=== PATIENT | male | born 1960 | race African-American/Black ===

== ENCOUNTER 2017-10-26 15:46 | Inpatient (IN) | payer MEDICARE ==
[2017-10-26 16:48] VITALS: BP 150/97
[2017-10-26] MEDS ORDERED: Magnesium Hydroxide (MOM) 30 mL UDC PO PRN (16:49)
[2017-10-26] MEDS ORDERED: Maalox 30 mL Cup PO PRN (16:49)
[2017-10-27] MEDS: Multivitamin Tab PO SCH (09:57)
--- NOTE | 2017-10-27 23:26 | History & Physical ---
ADMIT DATE: 10/26/2017 REASON FOR ADMISSION: Psychiatric disorder. HISTORY OF PRESENT ILLNESS: This is a 57-year-old male admitted to the [facility] Unit following psychiatric illnesses by Dr. Clements. Dr. Clements requested medical H and P on this patient. The patient stated that he is doing fine and denies any current medical complaints or concerns. PAST MEDICAL HISTORY: Hypertension. PAST SURGICAL HISTORY: No history of any past surgeries. FAMILY HISTORY: Denies. SOCIAL HISTORY: Denies tobacco smoking. Denies alcohol or street drug use. CURRENT MEDICATIONS: Tylenol, Maalox, milk of magnesia, multivitamin, and Seroquel. REVIEW OF SYSTEMS: All 12-point system review appears negative. PHYSICAL EXAMINATION: VITAL SIGNS: Temperature 96.9, pulse 94, respirations 20, and blood pressure 150/97. GENERAL APPEARANCE: The patient does not seem in acute distress. HEART: S1, S2 normal. LUNGS: Clear to auscultation. ABDOMEN: Soft, nontender. NEUROLOGIC: The patient is awake. Moves all extremities. Grossly nonfocal exams. EXTREMITIES: Negative for edema. ASSESSMENT: 1. Nicotine dependency. 2. Elevated blood pressure, monitor blood pressures. 3. ____ advised. 4. CBC, BMP orders. Plan of care discussed with nursing staff. Thank you Dr. Clements for allowing me to participate in the care of this patient. JOB# [id number]
[2017-10-28] MEDS: Multivitamin Tab PO SCH (10:00)
[2017-10-28 15:24] LABS: ANION GAP 11.8 (7.0-16.0); BUN - UREA NITROGEN 15 mg/dL (7-25); CALCIUM SERUM 10.3 mg/dL (8.6-10.3); CHLORIDE 103 mEq/L (98-107); GFR AFRICAN-AMERICAN > 60.0 ml/min (>90); GFR NON AFRICAN-AMERICAN > 60.0 ml/min; GLUCOSE 94 mg/dL (70-105); POTASSIUM SERUM 3.8 mEq/L (3.5-5.1); SODIUM SERUM 137 mEq/L (136-145)
[2017-10-28 15:38] LABS: % EOSINOPHILS 3.4 % (0.0-5.0); % LYMPHOCYTES 30.1 % (20.0-50.0); % MONOCYTES 10.4 % (2.0-10.0); % NEUTROPHILS 53.6 % (40.0-80.0); HEMATOCRIT 42.3 % (41.0-60); HEMOGLOBIN 14.3 gm/dL (12-16); MEAN CELL VOLUME 90.4 fl (80-99); MEAN CORPUSCULAR HEMOGLOBIN 30.6 pg (26.0-30.0); MEAN CORPUSCULAR HGB CONC 33.8 pg (28.0-36.0); MEAN PLATELET VOLUME 8.5 fl; PLATELET COUNT 276 Th/cmm (150-400); RED BLOOD COUNT 4.68 Mil/cmm (4.30-5.70); RED CELL DISTRIBUTION WIDTH 16.2 % (11.5-20.0); WHITE BLOOD COUNT 12.5 Th/cmm (4.8-10.8)
[2017-10-28 15:39] LABS: % BASOPHILS 2.5 % (0.0-2.0); BASOPHILE ABSOLUTE 0.3 Th/cumm (0-0.2); EOSINOPHILE ABSOLUTE 0.4 Th/cmm (0.1-0.4); LYMPHOCYTE ABSOLUTE 3.8 Th/cmm (1.5-3.0); MONOCYTE ABSOLUTE 1.3 Th/cmm (0.3-1.0); NEUTROPHILE ABSOLUTE 6.7 Th/cmm (1.8-8.0)
[2017-10-28] MEDS ORDERED: Haloperidol Lactate 5 mg/mL 1mL Vial ONE (15:46)
[2017-10-28] MEDS ORDERED: Haloperidol Lactate 5 mg/mL 1mL Vial IM STA (15:47)
--- NOTE | 2017-10-28 22:41 | General Progress Note ---
Subjective - Review of Systems Service Date: 10/28/17 Subjective: patient seen and examined no new event reported Objective - Results Result Diagrams: 10/28/17 14:56 10/28/17 14:56 Recent Labs: Laboratory Last Values WBC 12.5 Th/cmm (4.8-10.8) H 10/28/17 14:56 RBC 4.68 Mil/cmm (4.30-5.70) 10/28/17 14:56 Hgb 14.3 gm/dL (12-16) 10/28/17 14:56 Hct 42.3 % (41.0-60) 10/28/17 14:56 MCV 90.4 fl (80-99) 10/28/17 14:56 MCH 30.6 pg (26.0-30.0) H 10/28/17 14:56 MCHC Differential 33.8 pg (28.0-36.0) 10/28/17 14:56 RDW 16.2 % (11.5-20.0) 10/28/17 14:56 Plt Count 276 Th/cmm (150-400) 10/28/17 14:56 MPV 8.5 fl 10/28/17 14:56 Neutrophils % 53.6 % (40.0-80.0) 10/28/17 14:56 Lymphocytes % 30.1 % (20.0-50.0) 10/28/17 14:56 Monocytes % 10.4 % (2.0-10.0) H 10/28/17 14:56 Eosinophils % 3.4 % (0.0-5.0) 10/28/17 14:56 Basophils % 2.5 % (0.0-2.0) H 10/28/17 14:56 Sodium 137 mEq/L (136-145) 10/28/17 14:56 Potassium 3.8 mEq/L (3.5-5.1) 10/28/17 14:56 Chloride 103 mEq/L (98-107) 10/28/17 14:56 Carbon Dioxide 26.0 mEq/L (21.0-31.0) 10/28/17 14:56 Anion Gap 11.8 (7.0-16.0) 10/28/17 14:56 BUN 15 mg/dL (7-25) 10/28/17 14:56 Creatinine 1.0 mg/dL (0.7-1.3) 10/28/17 14:56 Est GFR ( Amer) > 60.0 ml/min (>90) 10/28/17 14:56 Est GFR (Non-Af Amer) > 60.0 ml/min 10/28/17 14:56 BUN/Creatinine Ratio 15.0 10/28/17 14:56 Glucose 94 mg/dL (70-105) 10/28/17 14:56 Calcium 10.3 mg/dL (8.6-10.3) 10/28/17 14:56 - Physical Exam Vitals and I&O: Vital Signs Temp 98.2 F 10/28/17 20:59 Pulse 113 10/28/17 20:59 Resp 18 10/28/17 20:59 BP 126/78 10/28/17 20:59 Pulse Ox 98 10/28/17 20:59 Intake & Output 10/28/17 10/28/17 10/29/17 06:59 18:59 06:59 Intake Total 540 Balance 540 Intake: Oral 540 Other: # Voids 1 Stool Characteristics Formed Active Medications: Current Medications Acetaminophen (Tylenol) 650 mg PO Q4HR PRN PRN Reason: Mild Pain / Temp above 100 Stop: 12/25/17 16:48 Al Hydrox/Mg Hydrox/Simethicone (Maalox) 30 ml PO Q4HR PRN PRN Reason: GI DISTRESS Stop: 12/25/17 16:48 Magnesium Hydroxide (Milk Of Magnesia) 30 ml PO HS PRN PRN Reason: Constipation Multivitamins/Vitamin C (Theragran) 1 tab PO DAILY TIMBO Stop: 12/26/17 08:59 Last Admin: 10/28/17 10:00 Dose: 1 tab Quetiapine Fumarate (Seroquel) 150 mg PO BID TIMBO PRN Reason: Protocol Stop: 12/27/17 06:15 Last Admin: 10/28/17 17:40 Dose: 150 mg Cardiovascular: Regular rate Lungs: Clear to auscultation Assessment/Plan - Assessment Assessment: leucocytosis HTN Nicotine dependency Mental health disorder - Plan Plan: Follow up labs Monitor vitals Psych follow up
[2017-10-29] MEDS: Multivitamin Tab PO SCH (08:31)
--- NOTE | 2017-10-29 08:32 | Psychosocial Evaluation ---
DATE OF SERVICE: 10/26/2017 PSYCHIATRIC INITIAL EVALUATION AND MENTAL STATUS EXAMINATION PATIENT'S AGE: 57-year-old. SEX: Male. PHYSICIAN: Iliana Clements MD, MPH CHIEF COMPLAINT: Gravely disabled. HISTORY OF PRESENT ILLNESS: The patient is a 57-year-old male who was found by the police in feces and urine. The patient also has been agitated. He has history of schizophrenia according to the chart and the patient seems that he has not been able to comply with taking his medications. The patient also was at times unconscious and he was not giving much information. He has history of migraine headaches according to the chart and also history of paranoid schizophrenia versus schizoaffective disorder. The patient was taking Cogentin as well as Seroquel. Apparently, the patient is poor historian and unable to provide any information about himself or his condition. Also, is easily agitated. PAST PSYCHIATRIC HISTORY: The patient has history of schizophrenia. PAST MEDICAL HISTORY: The patient has migraine headaches. Otherwise, no other major medical issues. SOCIAL HISTORY: The patient seems to be homeless. Unknown alcohol or drug use at this time. Also unknown legal history or abuse history. ALLERGIES: No known allergies. MENTAL STATUS EXAMINATION: The patient appears older than his stated age. Disheveled. Irritable moods. Disorganized thoughts. Suspicious and paranoid. The patient would not answer questions regarding hallucinations or delusions, but seems to be actively responding to stimuli. The patient denied suicidal or homicidal ideations. The patient is alert and oriented to place, but not to time or person or situation. Unable to assess his memory, but the patient is a poor historian and unable to follow my directions. Poor concentration and attention span and poor insight. ASSESSMENT: PRIMARY DIAGNOSIS: Chronic paranoid schizophrenia with acute exacerbation. MEDICAL DIAGNOSIS: Migraine headaches. TREATMENT PLAN: We will continue monitoring his behavior and his condition closely. We will start Seroquel in a dose of 100 mg twice a day. Also, we will continue to monitor behavior. ESTIMATED LENGTH OF STAY: 5-7 days. THE PATIENT'S STRENGTHS AND WEAKNESSES: The patient's strength is not clear at this time. Weaknesses is his noncompliance with treatment recommendation and his psychosis. AFTER DISCHARGE PLAN: Outpatient treatment and followup will continue as an outpatient. CRITERIA FOR DISCHARGE: The patient will not be psychotic and will stabilize psychotropic medications and will establish outpatient treatment plans. [facility]# [id number]
--- NOTE | 2017-10-29 09:56 | Progress Notes ---
DATE: 10/28/2017 SUBJECTIVE: Chart reviewed and the patient interviewed. Also discussed the patient's condition with the staff and reviewed records and labs. The patient is repeating the last words of my question to him and it seems that he has " echolalia." He also has been increasingly agitated with problems to calm him down and continued to be agitated and in irritable mood. The patient also is still having episodes of threatening. Otherwise, the patient is compliant with taking his medications. The patient denies any side effects of medications. ASSESSMENT: The patient is still agitated and is still psychotic. TREATMENT PLAN: Continue to monitor his behavior and his condition closely. Also, continue to work on his poor impulse control. Also, we will increase Seroquel to 150 mg twice a day and we will continue to follow up. JOB# [id number]
--- NOTE | 2017-10-29 21:43 | Progress Notes ---
DATE: SUBJECTIVE: The patient was seen and evaluated. The patient's chart reviewed. COVERING FOR: Dr. Clements. IDENTIFYING DATA: A 57-year-old male who was found in the police station with feces and urine. He has been very agitated and history of schizophrenia, disorganized. Today on [id number] evaluation, the patient continues to perseverate about his feces, perseverate about his bowel and hyperfocus when attempting to redirect him and different mood. He becomes more intense and ruminating about his feces. MENTAL STATUS EXAMINATION: Still disorganized, ruminating about the feces. ASSESSMENT AND PLAN: The patient is a male with schizophrenia whose recent Seroquel was increased to 150 mg p.o. b.i.d. We will continue with primary psychiatrist's treatment plan and goals to target the patient's severe psychotic symptoms. JOB# [id number]
[2017-10-30] MEDS ORDERED: Haloperidol Lactate 5 mg/mL 1mL Vial IM PRN (07:53)
[2017-10-30] MEDS ORDERED: Haloperidol Lactate 5 mg/mL 1mL Vial ONE (08:06)
[2017-10-30] MEDS: Multivitamin Tab PO SCH (09:45)
--- NOTE | 2017-10-30 13:25 | Progress Notes ---
DATE: SUBJECTIVE: The patient was seen and evaluated. The patient's chart reviewed. On approach today, the patient was extremely agitated, irritable and verbally threatening to staff as he almost go to ____ nursing station and starts targeting one of the staff. MENTAL STATUS EXAMINATION: Still disorganized, ruminating, agitated, threatening staff, unable to formulate a safe plan outside the structured environment. ASSESSMENT AND PLAN: The patient is a 57-year-old male, disorganized, verbally threaten staff members requiring emergent medications, unable to formulate a safe plan outside the structured environment. JOB# [id number]
[2017-10-31] MEDS: Multivitamin Tab PO SCH (08:47)
[2017-10-31] MEDS ORDERED: Haloperidol Lactate 5 mg/mL 1mL Vial ONE (15:14)
[2017-10-31] MEDS ORDERED: Haloperidol Lactate 5 mg/mL 1mL Vial IM ONE (15:20)
--- NOTE | 2017-10-31 21:41 | Progress Notes ---
DATE: 10/31/[address] Clements. Case was discussed with staff of patient, reviewed records. This is a 57-year-old male who was admitted on 10/26/2017. On a hold for grave disability, he was found by the police in feces in urine, agitated with a history of schizophrenia. The patient has not been able to comply with taking his medication. He was unconscious at times and he was not giving much information with a history of migraine headaches. The patient was on Seroquel and Cogentin. The patient according to the staff has been threatening. He is hyperverbal. When I saw him, he continues to be unpredictable, impulsive, unable to make safe plan for self-care, needing redirection. He has been on Seroquel 150 mg that was increased to twice a day with no side effects, no sedation, no nausea, no extrapyramidal symptoms. I will be increasing the Seroquel to 175 mg twice a day to help with his threatening, agitated behavior and so far no side effects, no sedation, no nausea, no extrapyramidal symptoms. We will continue to work with the patient in group therapy, milieu therapy, and adjust the medications as needed. JOB# [id number]
--- NOTE | 2017-10-31 22:06 | General Progress Note ---
Subjective - Review of Systems Service Date: 10/31/17 Subjective: patient seen and examined no new event reported Objective - Results Result Diagrams: 10/28/17 14:56 10/28/17 14:56 Recent Labs: Laboratory Last Values WBC 12.5 Th/cmm (4.8-10.8) H 10/28/17 14:56 RBC 4.68 Mil/cmm (4.30-5.70) 10/28/17 14:56 Hgb 14.3 gm/dL (12-16) 10/28/17 14:56 Hct 42.3 % (41.0-60) 10/28/17 14:56 MCV 90.4 fl (80-99) 10/28/17 14:56 MCH 30.6 pg (26.0-30.0) H 10/28/17 14:56 MCHC Differential 33.8 pg (28.0-36.0) 10/28/17 14:56 RDW 16.2 % (11.5-20.0) 10/28/17 14:56 Plt Count 276 Th/cmm (150-400) 10/28/17 14:56 MPV 8.5 fl 10/28/17 14:56 Neutrophils % 53.6 % (40.0-80.0) 10/28/17 14:56 Lymphocytes % 30.1 % (20.0-50.0) 10/28/17 14:56 Monocytes % 10.4 % (2.0-10.0) H 10/28/17 14:56 Eosinophils % 3.4 % (0.0-5.0) 10/28/17 14:56 Basophils % 2.5 % (0.0-2.0) H 10/28/17 14:56 Sodium 137 mEq/L (136-145) 10/28/17 14:56 Potassium 3.8 mEq/L (3.5-5.1) 10/28/17 14:56 Chloride 103 mEq/L (98-107) 10/28/17 14:56 Carbon Dioxide 26.0 mEq/L (21.0-31.0) 10/28/17 14:56 Anion Gap 11.8 (7.0-16.0) 10/28/17 14:56 BUN 15 mg/dL (7-25) 10/28/17 14:56 Creatinine 1.0 mg/dL (0.7-1.3) 10/28/17 14:56 Est GFR ( Amer) > 60.0 ml/min (>90) 10/28/17 14:56 Est GFR (Non-Af Amer) > 60.0 ml/min 10/28/17 14:56 BUN/Creatinine Ratio 15.0 10/28/17 14:56 Glucose 94 mg/dL (70-105) 10/28/17 14:56 Calcium 10.3 mg/dL (8.6-10.3) 10/28/17 14:56 - Physical Exam Vitals and I&O: Vital Signs Temp 98.8 F 10/31/17 20:24 Pulse 124 10/31/17 20:24 Resp 20 10/31/17 20:24 BP 117/83 10/31/17 20:24 Pulse Ox 98 10/31/17 16:49 Intake & Output 10/31/17 10/31/17 11/01/17 06:59 18:59 06:59 Intake Total 480 360 Balance 480 360 Intake: Oral 480 360 Other: # Voids 1 1 Active Medications: Current Medications Acetaminophen (Tylenol) 650 mg PO Q4HR PRN PRN Reason: Mild Pain / Temp above 100 Stop: 12/25/17 16:48 Last Admin: 10/30/17 20:44 Dose: 650 mg Al Hydrox/Mg Hydrox/Simethicone (Maalox) 30 ml PO Q4HR PRN PRN Reason: GI DISTRESS Stop: 12/25/17 16:48 Lorazepam (Ativan) 0.5 mg PO Q4HR PRN; Protocol PRN Reason: Anxiety Stop: 11/29/17 22:04 Magnesium Hydroxide (Milk Of Magnesia) 30 ml PO HS PRN PRN Reason: Constipation Multivitamins/Vitamin C (Theragran) 1 tab PO DAILY TIMBO Stop: 12/26/17 08:59 Last Admin: 10/31/17 08:47 Dose: 1 tab Quetiapine Fumarate (Seroquel) 175 mg PO BID TIMBO PRN Reason: Protocol Stop: 12/30/17 16:59 Last Admin: 10/31/17 17:51 Dose: 175 mg Zolpidem Tartrate (Ambien) 5 mg PO HS PRN PRN Reason: Insomnia Stop: 12/29/17 22:04 Cardiovascular: Regular rate Lungs: Clear to auscultation Assessment/Plan - Assessment Assessment: leucocytosis HTN Nicotine dependency Mental health disorder - Plan Plan: Follow up labs Monitor vitals Psych follow up Nutritional Asmnt/Malnutr-PDOC - Dietary Evaluation Malnutrition Findings (Please click <Entered> for more info): Nutritional Asmnt/Malnutrition Start: 10/31/17 17: 13 Text: Status: Complete Freq: Document 10/31/17 17:13 SAM (Rec: 10/31/17 17:18 [email or web address] Nutritional Asmnt/Malnutrition Patient General Information Nutritional Screening Moderate Risk Diagnosis psychosis Pertinent Medical Hx/Surgical Hx HTN Subjective Information Per EMR, PO intake 100%. Current Diet Order/ Nutrition Support low sodium Pertinent Medications theragran, seroquel Pertinent Labs 10/28 nutrition related labs WNL Nutritional Hx/Data Height 1.65 m Height (Calculated Centimeters) 165.1 Current Weight (lbs) 63.957 kg Weight (Calculated Kilograms) 64.0 Weight (Calculated Grams) 54128.5 [place] Body Weight 136 Body Mass Index (BMI) 23.4 Weight Status Approriate GI Symptoms GI Symptoms None Last BM 10/30 Difficult in: None Food Allergies Yes: egg Skin Integrity/Comment: puncture wound ulceration to left lower ankle Estimated Nutritional Goals BEE in Kcals: Using Current wt Calories/Kcals/Kg 25-30 Kcals Calculated 1021-2485 Protein: Using Current wt Protein g/k Protein Calculated 64 Fluid: ml [id number] Nutritional Problem No current Nutrition Prob Problem N/A Intervention/Recommendation Comments 1. Continue with current diet as ordered. 2. Monitor PO intake, wt, labs and skin integrity 3. F/U as low risk in 7d ays, 4/2 Expected Outcomes/Goals Expected Outcomes/Goals 1. PO intake to meet at least 75% of nutritional needs. 2. Wt stability, skin to remain intact, labs WNL.
[2017-11-01] MEDS: Multivitamin Tab PO SCH (09:13)
[2017-11-01 16:34] LABS: % EOSINOPHILS 4.1 % (0.0-5.0); % LYMPHOCYTES 22.3 % (20.0-50.0); % MONOCYTES 13.3 % (2.0-10.0); % NEUTROPHILS 60.3 % (40.0-80.0); EOSINOPHILE ABSOLUTE 0.6 Th/cmm (0.1-0.4); HEMATOCRIT 40.4 % (41.0-60); HEMOGLOBIN 13.7 gm/dL (12-16); LYMPHOCYTE ABSOLUTE 3.3 Th/cmm (1.5-3.0); MEAN CELL VOLUME 89.7 fl (80-99); MEAN CORPUSCULAR HEMOGLOBIN 30.5 pg (26.0-30.0); MEAN CORPUSCULAR HGB CONC 33.9 pg (28.0-36.0); MONOCYTE ABSOLUTE 1.9 Th/cmm (0.3-1.0); NEUTROPHILE ABSOLUTE 8.8 Th/cmm (1.8-8.0); PLATELET COUNT 279 Th/cmm (150-400); RED CELL DISTRIBUTION WIDTH 15.5 % (11.5-20.0); WHITE BLOOD COUNT 14.6 Th/cmm (4.8-10.8)
[2017-11-01] MEDS ORDERED: Haloperidol Lactate 5 mg/mL 1mL Vial ONE (17:47)
[2017-11-01] MEDS ORDERED: Haloperidol Lactate 5 mg/mL 1mL Vial IM ONE (17:58)
--- NOTE | 2017-11-01 23:06 | Progress Notes ---
DATE: 11/01/2017 Case was discussed with staff of the patient, reviewed records. The patient is reported to be showing some progress. He is less threatening. He continues to be loud; however, continues to be unpredictable and impulsive. Continues to be hyperverbal at times. Continues to have poor insight. Tolerating increase in Seroquel with no side effects, no sedation, no nausea and no extrapyramidal symptoms. We will continue to work with the patient in group therapy and therapy, adjust medications as needed. JOB# [id number]
[2017-11-02] MEDS: Multivitamin Tab PO SCH (09:21)
--- NOTE | 2017-11-02 21:16 | General Progress Note ---
Subjective - Review of Systems Service Date: 11/02/17 Subjective: patient seen and examined Last night patient noted to have elevated HR per nursing staff patient was asymptomatic today patient denied any chest pain or palpitation or shortness of breath Objective - Results Result Diagrams: 11/01/17 16:25 10/28/17 14:56 Recent Labs: Laboratory Last Values WBC 14.6 Th/cmm (4.8-10.8) H 11/01/17 16:25 RBC 4.50 Mil/cmm (4.30-5.70) 11/01/17 16:25 Hgb 13.7 gm/dL (12-16) 11/01/17 16:25 Hct 40.4 % (41.0-60) L 11/01/17 16:25 MCV 89.7 fl (80-99) 11/01/17 16:25 MCH 30.5 pg (26.0-30.0) H 11/01/17 16:25 MCHC Differential 33.9 pg (28.0-36.0) 11/01/17 16:25 RDW 15.5 % (11.5-20.0) 11/01/17 16:25 Plt Count 279 Th/cmm (150-400) 11/01/17 16:25 MPV 8.0 fl 11/01/17 16:25 Neutrophils % 60.3 % (40.0-80.0) 11/01/17 16:25 Lymphocytes % 22.3 % (20.0-50.0) 11/01/17 16:25 Monocytes % 13.3 % (2.0-10.0) H 11/01/17 16:25 Eosinophils % 4.1 % (0.0-5.0) 11/01/17 16:25 Basophils % 0.0 % (0.0-2.0) 11/01/17 16:25 Sodium 137 mEq/L (136-145) 10/28/17 14:56 Potassium 3.8 mEq/L (3.5-5.1) 10/28/17 14:56 Chloride 103 mEq/L (98-107) 10/28/17 14:56 Carbon Dioxide 26.0 mEq/L (21.0-31.0) 10/28/17 14:56 Anion Gap 11.8 (7.0-16.0) 10/28/17 14:56 BUN 15 mg/dL (7-25) 10/28/17 14:56 Creatinine 1.0 mg/dL (0.7-1.3) 10/28/17 14:56 Est GFR ( Amer) > 60.0 ml/min (>90) 10/28/17 14:56 Est GFR (Non-Af Amer) > 60.0 ml/min 10/28/17 14:56 BUN/Creatinine Ratio 15.0 10/28/17 14:56 Glucose 94 mg/dL (70-105) 10/28/17 14:56 Calcium 10.3 mg/dL (8.6-10.3) 10/28/17 14:56 - Physical Exam Vitals and I&O: Vital Signs Temp 98.6 F 11/02/17 14:53 Pulse 102 11/02/17 20:49 Resp 20 11/02/17 20:49 BP 105/66 11/02/17 20:49 Pulse Ox 99 11/02/17 20:49 Intake & Output 11/02/17 11/02/17 11/03/17 06:59 18:59 06:59 Intake Total 200 1500 240 Balance 200 1500 240 Intake: Oral 200 1500 240 Other: # Voids 3 3 1 # Bowel Movements 0 Active Medications: Current Medications Acetaminophen (Tylenol) 650 mg PO Q4HR PRN PRN Reason: Mild Pain / Temp above 100 Stop: 12/25/17 16:48 Last Admin: 10/30/17 20:44 Dose: 650 mg Al Hydrox/Mg Hydrox/Simethicone (Maalox) 30 ml PO Q4HR PRN PRN Reason: GI DISTRESS Stop: 12/25/17 16:48 Lorazepam (Ativan) 0.5 mg PO Q4HR PRN; Protocol PRN Reason: Anxiety Stop: 11/29/17 22:04 Last Admin: 11/02/17 09:21 Dose: 0.5 mg Magnesium Hydroxide (Milk Of Magnesia) 30 ml PO HS PRN PRN Reason: Constipation Metoprolol Tartrate (Lopressor) 12.5 mg PO BID TIMBO Stop: 01/01/18 16:59 Last Admin: 11/02/17 17:34 Dose: 12.5 mg Multivitamins/Vitamin C (Theragran) 1 tab PO DAILY TIMBO Stop: 12/26/17 08:59 Last Admin: 11/02/17 09:21 Dose: 1 tab Quetiapine Fumarate (Seroquel) 200 mg PO BID TIMBO PRN Reason: Protocol Stop: 01/01/18 08:59 Last Admin: 11/02/17 17:35 Dose: 200 mg Zolpidem Tartrate (Ambien) 5 mg PO HS PRN PRN Reason: Insomnia Stop: 12/29/17 22:04 Cardiovascular: Regular rate, Other (mild tachycardia) Lungs: Clear to auscultation Assessment/Plan - Assessment Assessment: Tachycardia leucocytosis HTN Nicotine dependency Mental health disorder - Plan Plan: EKG sinus tach ECHO and Cardiology consulted Monitor vitals Smoking cessation advised Psych follow up Plan of care discussed with nursing staff Nutritional Asmnt/Malnutr-PDOC - Dietary Evaluation Malnutrition Findings (Please click <Entered> for more info): Nutritional Asmnt/Malnutrition Start: 10/31/17 17: 13 Text: Status: Complete Freq: Document 10/31/17 17:13 [place] (Rec: 10/31/17 17:18 [email or web address] Nutritional Asmnt/Malnutrition Patient General Information Nutritional Screening Moderate Risk Diagnosis psychosis Pertinent Medical Hx/Surgical Hx HTN Subjective Information Per EMR, PO intake 100%. Current Diet Order/ Nutrition Support low sodium Pertinent Medications theragran, seroquel Pertinent Labs 10/28 nutrition related labs WNL Nutritional Hx/Data Height 1.65 m Height (Calculated Centimeters) 165.1 Current Weight (lbs) 63.957 kg Weight (Calculated Kilograms) 64.0 Weight (Calculated Grams) 18848.5 [place] Body Weight 136 Body Mass Index (BMI) 23.4 Weight Status Approriate GI Symptoms GI Symptoms None Last BM 10/30 Difficult in: None Food Allergies Yes: egg Skin Integrity/Comment: puncture wound ulceration to left lower ankle Estimated Nutritional Goals BEE in Kcals: Using Current wt Calories/Kcals/Kg 25-30 Kcals Calculated 1862-7165 Protein: Using Current wt Protein g/k Protein Calculated 64 Fluid: ml 3806-2179 Nutritional Problem No current Nutrition Prob Problem N/A Intervention/Recommendation Comments 1. Continue with current diet as ordered. 2. Monitor PO intake, wt, labs and skin integrity 3. F/U as low risk in 7d ays, 4/2 Expected Outcomes/Goals Expected Outcomes/Goals 1. PO intake to meet at least 75% of nutritional needs. 2. Wt stability, skin to remain intact, labs WNL.
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
[2017-11-03] MEDS: Multivitamin Tab PO SCH (08:35)
--- NOTE | 2017-11-03 23:26 | Cardiology ---
11/02/2017 ECHOCARDIOGRAM PATIENT OF: Dr. Carmen Ramos. M-MODE ECHOCARDIOGRAM: Mitral valve; anterior leaflet of mitral valve shows normal excursion, EF velocity. Posterior leaflet of the mitral valve shows normal excursion. Left ventricular posterior wall shows increased thickness, normal excursion. Interventricular septum shows increased thickness, normal excursion, hypertrophy of the left ventricle, ejection fraction 55%. Left atrium normal. Aortic root shows normal dimension, normal excursion of aortic leaflets. CONCLUSION: Hypertrophy of the left ventricle, ejection fraction 55%. 2D echo on the same patient, long axis view showed normal-sized left ventricle with hypertrophy of the left ventricle. Left atrium normal. Aortic root shows normal dimension, normal excursion of aortic leaflets. Short axis view of mitral valve normal, short axis view of aortic valve normal. Apical four chamber view showed normal-sized left ventricle with hypertrophy of the left ventricle, right ventricular cavity, right atrium normal, no pericardial effusion. CONCLUSION: Hypertrophy of the left ventricle, ejection fraction 55%. Doppler study shows normal antegrade flow across the mitral valve, tricuspid valve, and aortic valve. JOB# [id number]
--- NOTE | 2017-11-04 03:38 | Consultation ---
DATE OF CONSULTATION: 11/03/[address] Richard Morales. HISTORY AND PHYSICAL: This is a 57-year-old male patient who has been admitted to [facility] for schizophrenia. The patient had been complaining of palpitation. At this time, the patient had EKG, which showed sinus tachycardia and hence Cardiology consult is requested. PAST MEDICAL HISTORY: Schizophrenia, hypertension. FAMILY HISTORY: Unremarkable. SOCIAL HISTORY: No history of smoking, alcohol abuse. ALLERGIES: None. PHYSICAL EXAMINATION: VITAL SIGNS: Blood pressure 110/70, pulse 100, respirations 28. HEAD: Normocephalic. No lumps or bumps. EYES: Pupils equal, reactive to light. Fundi show AV nicking, sclerae white, conjunctivae pink. NECK: Carotid 2+. Normal upstroke. JVD flat. Thyroid not palpable. Lymph nodes not palpable. CHEST: Shows increased AP diameter. No kyphosis, scoliosis. LUNGS: Bilateral breath sounds. HEART: PMI 1/2 inch lateral to midclavicular line. S1, S2. No S3, S4, sinus tachycardia. ABDOMEN: Soft. Liver, spleen not palpable. No organomegaly. Bowel sounds active. NEUROLOGIC: Unremarkable. EXTREMITIES: Peripheral pulses 2+. No pedal edema. CLINICAL IMPRESSION: Sinus tachycardia, hypertension, schizophrenia, palpitation. PLAN: The patient to start on Lopressor 12.5 mg b.i.d. and monitor the patient. Continue psych evaluation. JOB# [id number]
[2017-11-04] MEDS: Multivitamin Tab PO SCH (09:50)
[2017-11-04 09:53] LABS: ANION GAP 12.5 (7.0-16.0); BUN - UREA NITROGEN 14 mg/dL (7-25); CARBON DIOXIDE 22.3 mEq/L (21.0-31.0); CHLORIDE 103 mEq/L (98-107); CREATININE - SERUM 1.1 mg/dL (0.7-1.3); GFR AFRICAN-AMERICAN > 60.0 ml/min (>90); GFR NON AFRICAN-AMERICAN > 60.0 ml/min; GLUCOSE 159 mg/dL (70-105); POTASSIUM SERUM 3.8 mEq/L (3.5-5.1); SODIUM SERUM 134 mEq/L (136-145)
--- NOTE | 2017-11-04 21:26 | General Progress Note ---
Subjective - Review of Systems Service Date: 11/04/17 Subjective: patient seen and examined doing better denied chest pain or palpitation Objective - Results Result Diagrams: 11/01/17 16:25 11/04/17 09:15 Recent Labs: Laboratory Last Values WBC 14.6 Th/cmm (4.8-10.8) H 11/01/17 16:25 RBC 4.50 Mil/cmm (4.30-5.70) 11/01/17 16:25 Hgb 13.7 gm/dL (12-16) 11/01/17 16:25 Hct 40.4 % (41.0-60) L 11/01/17 16:25 MCV 89.7 fl (80-99) 11/01/17 16:25 MCH 30.5 pg (26.0-30.0) H 11/01/17 16:25 MCHC Differential 33.9 pg (28.0-36.0) 11/01/17 16:25 RDW 15.5 % (11.5-20.0) 11/01/17 16:25 Plt Count 279 Th/cmm (150-400) 11/01/17 16:25 MPV 8.0 fl 11/01/17 16:25 Neutrophils % 60.3 % (40.0-80.0) 11/01/17 16:25 Lymphocytes % 22.3 % (20.0-50.0) 11/01/17 16:25 Monocytes % 13.3 % (2.0-10.0) H 11/01/17 16:25 Eosinophils % 4.1 % (0.0-5.0) 11/01/17 16:25 Basophils % 0.0 % (0.0-2.0) 11/01/17 16:25 Sodium 134 mEq/L (136-145) L 11/04/17 09:15 Potassium 3.8 mEq/L (3.5-5.1) 11/04/17 09:15 Chloride 103 mEq/L (98-107) 11/04/17 09:15 Carbon Dioxide 22.3 mEq/L (21.0-31.0) 11/04/17 09:15 Anion Gap 12.5 (7.0-16.0) 11/04/17 09:15 BUN 14 mg/dL (7-25) 11/04/17 09:15 Creatinine 1.1 mg/dL (0.7-1.3) 11/04/17 09:15 Est GFR ( Amer) > 60.0 ml/min (>90) 11/04/17 09:15 Est GFR (Non-Af Amer) > 60.0 ml/min 11/04/17 09:15 BUN/Creatinine Ratio 12.7 11/04/17 09:15 Glucose 159 mg/dL (70-105) H 11/04/17 09:15 Calcium 10.0 mg/dL (8.6-10.3) 11/04/17 09:15 - Physical Exam Vitals and I&O: Vital Signs Temp 97.7 F 11/04/17 20:51 Pulse 80 11/04/17 20:51 Resp 18 11/04/17 20:51 BP 130/98 11/04/17 20:51 Pulse Ox 92 11/04/17 20:51 Intake & Output 11/04/17 11/04/17 11/05/17 06:59 18:59 06:59 Intake Total 520 1200 240 Balance 520 1200 240 Intake: Oral 520 1200 240 Other: # Voids 1 3 # Bowel Movements 0 Stool Characteristics Soft Active Medications: Current Medications Acetaminophen (Tylenol) 650 mg PO Q4HR PRN PRN Reason: Mild Pain / Temp above 100 Stop: 12/25/17 16:48 Last Admin: 10/30/17 20:44 Dose: 650 mg Al Hydrox/Mg Hydrox/Simethicone (Maalox) 30 ml PO Q4HR PRN PRN Reason: GI DISTRESS Stop: 12/25/17 16:48 Lorazepam (Ativan) 0.5 mg PO Q4HR PRN; Protocol PRN Reason: Anxiety Stop: 11/29/17 22:04 Last Admin: 11/04/17 20:39 Dose: 0.5 mg Magnesium Hydroxide (Milk Of Magnesia) 30 ml PO HS PRN PRN Reason: Constipation Metoprolol Tartrate (Lopressor) 12.5 mg PO BID [facility] Stop: 01/01/18 16:59 Last Admin: 11/04/17 17:13 Dose: 12.5 mg Multivitamins/Vitamin C (Theragran) 1 tab PO DAILY [facility] Stop: 12/26/17 08:59 Last Admin: 11/04/17 09:50 Dose: 1 tab Quetiapine Fumarate 200 mg/ (Quetiapine Fumarate 25 mg) 225 mg PO BID [facility] Stop: 01/02/18 16:59 Last Admin: 11/04/17 17:12 Dose: 225 mg Zolpidem Tartrate (Ambien) 5 mg PO HS PRN PRN Reason: Insomnia Stop: 12/29/17 22:04 Last Admin: 11/04/17 20:40 Dose: 5 mg Cardiovascular: Regular rate, Other (mild tachycardia) Lungs: Clear to auscultation Assessment/Plan - Assessment Assessment: Tachycardia better leucocytosis HTN Nicotine dependency Mental health disorder - Plan Plan: HT better with metoprolol ECHO and Cardiology consulted Monitor vitals Smoking cessation advised Psych follow up Plan of care discussed with nursing staff Nutritional Asmnt/Malnutr-PDOC - Dietary Evaluation Malnutrition Findings (Please click <Entered> for more info): Nutritional Asmnt/Malnutrition Start: 10/31/17 17: 13 Text: Status: Complete Freq: Document 10/31/17 17:13 ALLISON (Rec: 10/31/17 17:18 LCKIT [email or web address]) Nutritional Asmnt/Malnutrition Patient General Information Nutritional Screening Moderate Risk Diagnosis psychosis Pertinent Medical Hx/Surgical Hx HTN Subjective Information Per EMR, PO intake 100%. Current Diet Order/ Nutrition Support low sodium Pertinent Medications theragran, seroquel Pertinent Labs 10/28 nutrition related labs WNL Nutritional Hx/Data Height 1.65 m Height (Calculated Centimeters) 165.1 Current Weight (lbs) 63.957 kg Weight (Calculated Kilograms) 64.0 Weight (Calculated Grams) 53954.5 Ferdinand Body Weight 136 Body Mass Index (BMI) 23.4 Weight Status Approriate GI Symptoms GI Symptoms None Last BM 10/30 Difficult in: None Food Allergies Yes: egg Skin Integrity/Comment: puncture wound ulceration to left lower ankle Estimated Nutritional Goals BEE in Kcals: Using Current wt Calories/Kcals/Kg 25-30 Kcals Calculated 0640-0156 Protein: Using Current wt Protein g/k Protein Calculated 64 Fluid: ml 8726-3239 Nutritional Problem No current Nutrition Prob Problem N/A Intervention/Recommendation Comments 1. Continue with current diet as ordered. 2. Monitor PO intake, wt, labs and skin integrity 3. F/U as low risk in 7d ays, 4/2 Expected Outcomes/Goals Expected Outcomes/Goals 1. PO intake to meet at least 75% of nutritional needs. 2. Wt stability, skin to remain intact, labs WNL.
[2017-11-05 06:54] LABS: % BASOPHILS 2.3 % (0.0-2.0); % EOSINOPHILS 6.6 % (0.0-5.0); % LYMPHOCYTES 33.4 % (20.0-50.0); % MONOCYTES 8.6 % (2.0-10.0); % NEUTROPHILS 49.1 % (40.0-80.0); BASOPHILE ABSOLUTE 0.2 Th/cumm (0-0.2); EOSINOPHILE ABSOLUTE 0.7 Th/cmm (0.1-0.4); HEMATOCRIT 43.9 % (41.0-60); HEMOGLOBIN 14.8 gm/dL (12-16); LYMPHOCYTE ABSOLUTE 3.4 Th/cmm (1.5-3.0); MEAN CELL VOLUME 89.5 fl (80-99); MEAN CORPUSCULAR HEMOGLOBIN 30.2 pg (26.0-30.0); MEAN CORPUSCULAR HGB CONC 33.7 pg (28.0-36.0); MEAN PLATELET VOLUME 8.1 fl; MONOCYTE ABSOLUTE 0.9 Th/cmm (0.3-1.0); NEUTROPHILE ABSOLUTE 5.1 Th/cmm (1.8-8.0); PLATELET COUNT 286 Th/cmm (150-400); RED CELL DISTRIBUTION WIDTH 15.5 % (11.5-20.0); WHITE BLOOD COUNT 10.3 Th/cmm (4.8-10.8)
[2017-11-05] MEDS: Multivitamin Tab PO SCH (08:40)
--- NOTE | 2017-11-06 00:43 | Progress Notes ---
DATE: 11/05/2017 SUBJECTIVE: A 57-year-old male, found by the police in feces and urine, agitated, history of schizophrenia. On [id number], the patient does not want to talk to me, just states, "kwame-dokie" then walks away. Medications were reviewed. Discussed with staff. The patient wondering, still mumbling to self, appearing disorganized and psychotic. Medications were noted including doses and frequencies. ASSESSMENT: The patient remains suspicious, paranoid, still disruptive, periods of agitation, unruly behaviors, and unpredictable behaviors. PLAN: We will continue to monitor. Given his ongoing symptoms, he is not safe for discharge, recent dose increased of Seroquel. JOB# [id number]
[2017-11-06] MEDS: Multivitamin Tab PO SCH (08:45)
--- NOTE | 2017-11-06 17:44 | Progress Notes ---
DATE: 11/06/2017 The patient brought in, he was apparently covered in feces and urine, agitated, history of schizophrenia. The patient is stating some nonsensical and repetitive statements___, walks away from me. Noted to be pacing, saying bizarre things, mumbling to self. Still appearing psychotic. He wont speak w me this morning. MEDICATIONS: Noted. ASSESSMENT: The patient remains suspicious, paranoid, still disruptive, unruly at times. Essentially refusing interview. D/W staff PLAN: We will continue to monitor. Medications were noted. Given his ongoing symptoms, he is not safe for discharge. JOB# [id number] TETE
--- NOTE | 2017-11-06 18:06 | Progress Notes ---
DATE: 11/03/2017 SUBJECTIVE: Chart reviewed and the patient interviewed. Also discussed the patient's condition with the staff and reviewed records and labs. The patient remains extremely agitated and irritable. The patient also is threatening the staff. The patient also is complaining of a "tension headache." Also, during interview, the patient was rambling and talking about his mother who from cancer and was mixing his thoughts and unable to carry on coherent conversation. ASSESSMENT: The patient is still agitated and psychotic. TREATMENT PLAN: We will continue to monitor his behavior and his condition closely. Also, we will increase Seroquel to 225 mg twice a day and we will continue to follow up closely. [facility]# [id number]
--- NOTE | 2017-11-06 19:39 | Progress Notes ---
DATE: SUBJECTIVE: Chart reviewed and the patient interviewed. Also discussed the patient's condition with the staff and reviewed records and labs. The patient seems to be slightly calmer than before and seems to be slightly less irritable and less agitated. He still has episodes of threatening, but not as before. Also, still intrusive to others. Otherwise, the patient is compliant with taking his medications, with no side effect of medications. ASSESSMENT: The patient is still psychotic. TREATMENT PLAN: Continue monitoring his behavior and his condition closely. Also, continue adjusting psychotropic medications and follow up closely. JOB# [id number]
[2017-11-07] MEDS: Multivitamin Tab PO SCH (08:59)
== END 2017-11-07 16:30 | DRG 885 ==
LOC: GERO2 15:46
PROVIDERS: ADMIT Psychiatry & Neurology Psychiatry; ATTEND Psychiatry & Neurology Psychiatry
DX: F20.0 Paranoid schizophrenia (principal); F17.210 Nicotine dependence, cigarettes, uncomplicated; G43.909 Migraine, unspecified, not intractable, without status migrainosus; I10 Essential (primary) hypertension; R00.0 Tachycardia, unspecified; D72.829 Elevated white blood cell count, unspecified; Z59.0 Homelessness
CPT/HCPCS: 36415-UA; 80048-TC; 85025-TC; 93005; G0410; J1200; J1630; J2060; Z7610

== ENCOUNTER 2018-02-13 20:34 | Inpatient (IN) | payer MEDICARE ==
--- NOTE | 2018-02-13 20:59 | ED Physician Chart ---
ED Chief Complaint/HPI - Patient Information Date Seen:: 02/13/18 Time Seen:: 20:54 Chief Complaint:: psych History of Present Illness:: 57 yr male here for jai psych evaluation Allergies:: Allergies Allergy/AdvReac Type Severity Reaction Status Date / Time egg Allergy HIVES Verified 02/13/18 20:44 Historian:: Patient, Medical Records ED Review of Systems - Review of Systems General/Constitutional: No fever, No chills, No weight loss, No weakness, No diaphoresis, No edema, No loss of appetite Skin: No skin lesions, No rash, No bruising Head: No headache, No light-headedness Eyes: No loss of vision, No pain, No diplopia ENT: No earache, No nasal drainage, No sore throat, No tinnitus Neck: No neck pain, No swelling, No thyromegaly, No stiffness, No mass noted Cardio Vascular: No chest pain, No palpitations, No PND, No orthopnea, No edema Pulmonary: No SOB, No cough, No sputum, No wheezing GI: No nausea, No vomiting, No diarrhea, No pain, No melena, No hematochezia, No constipation, No hematemesis G/U: No dysuria, No frequency, No hematuria Musculoskeletal: No bone or joint pain, No back pain, No muscle pain Endocrine: No polyuria, No polydipsia Psychiatric: Prior psych history, Visual hallucination Hematopoietic: No bruising, No lymphadenopathy Allergic/Immuno: No urticaria, No angioedema Neurological: No syncope, No focal symptoms, No weakness, No paresthesia, No headache, No seizure, No dizziness, No confusion, No vertigo ED Past Medical History - Past Medical History Past Medical History: Other (schizophrenia) Family Medical History - Family Member Mother History Unknown: Yes ED Physical Exam - Physical Examination General/Constitutional: Awake Other Gen/Cons comments:: very loud agitated angry and not answerng any questions did alow phlebotomy to draw blood Head: Atraumatic Eyes: Lids, conjuctiva normal Skin: Nl inspection ENMT: External ears, nose nl Neck: Nontender Respiratory: Nl effort/Exclusion Cardio Vascular: RRR GI: No tenderness/rebounding/guarding Extremities: No tenderness or effusion Neuro/Psych: Alert/oriented Other Neuro/Psych comments:: loud agitated ED Assessment - Assessment General Assessment: psychosis ED Septic Shock - . Is Septic Shock (SBP<90, OR Lactate>4 mmol\L) present?: No ED Reassessment (Disposition) - Reassessment Reassessment Condition:: Unchanged - Patient Disposition Discharge/Transfer:: Acute Care w/in this hosp
[2018-02-13 21:08] LABS: % BASOPHILS 0.8 % (0.0-2.0); % EOSINOPHILS 4.6 % (0.0-5.0); % LYMPHOCYTES 50.6 % (20.0-50.0); BASOPHILE ABSOLUTE 0.1 Th/cumm (0-0.2); EOSINOPHILE ABSOLUTE 0.5 Th/cmm (0.1-0.4); HEMATOCRIT 44.3 % (41.0-60); HEMOGLOBIN 14.9 gm/dL (12-16); LYMPHOCYTE ABSOLUTE 5.4 Th/cmm (1.5-3.0); MEAN CELL VOLUME 88.2 fl (80-99); MEAN CORPUSCULAR HEMOGLOBIN 29.8 pg (26.0-30.0); MEAN CORPUSCULAR HGB CONC 33.7 pg (28.0-36.0); MEAN PLATELET VOLUME 8.1 fl; NEUTROPHILE ABSOLUTE 3.7 Th/cmm (1.8-8.0); PLATELET COUNT 238 Th/cmm (150-400); RED BLOOD COUNT 5.01 Mil/cmm (4.30-5.70); RED CELL DISTRIBUTION WIDTH 13.8 % (11.5-20.0); WHITE BLOOD COUNT 10.7 Th/cmm (4.8-10.8)
[2018-02-13 21:25] LABS: ALB/GLOB RATIO 1.4 (1.0-1.8); ALBUMIN 4.3 gm/dL (4.2-5.5); ALKALINE PHOSPHATASE 58 U/L (34-104); ANION GAP 11.2 (7.0-16.0); BILIRUBIN,TOTAL 0.4 mg/dL (0.3-1.0); BUN - UREA NITROGEN 16 mg/dL (7-25); CALCIUM SERUM 9.8 mg/dL (8.6-10.3); CARBON DIOXIDE 22.6 mEq/L (21.0-31.0); CHLORIDE 106 mEq/L (98-107); CREATININE - SERUM 1.4 mg/dL (0.7-1.3); GFR AFRICAN-AMERICAN > 60.0 ml/min (>90); GFR NON AFRICAN-AMERICAN 55.9 ml/min; GLUCOSE 99 mg/dL (70-105); POTASSIUM SERUM 3.8 mEq/L (3.5-5.1); SGOT 28 U/L (13-39); SGPT/ALT 18 U/L (7-52); SODIUM SERUM 136 mEq/L (136-145); TOTAL PROTEIN,SERUM 7.4 gm/dL (6.0-8.3)
[2018-02-13 22:22] VITALS: BP 116/79
[2018-02-13] MEDS ORDERED: Magnesium Hydroxide (MOM) 30 mL UDC PO PRN (23:01)
[2018-02-13] MEDS ORDERED: Maalox 30 mL Cup PO PRN (23:01)
[2018-02-14] MEDS: Multivitamin Tab PO SCH (08:18)
[2018-02-14 17:50] LABS: URINE MICROSCOPIC INDICATED? YES; URINE SOURCE CLEAN C
[2018-02-14 17:54] LABS: URINE BILIRUBIN NEGATIVE (NEGATIVE); URINE BLOOD NEGATIVE (NEGATIVE); URINE GLUCOSE (UA) NEGATIVE (NEGATIVE); URINE KETONE NEGATIVE (NEGATIVE); URINE LEUKOCYTE ESTERASE NEGATIVE (NEGATIVE); URINE NITRATE NEGATIVE (NEGATIVE); URINE PROTEIN NEGATIVE (NEGATIVE); URINE UROBILINOGEN 0.2 E.U./dL (0.2 - 1.0)
[2018-02-14 17:56] LABS: URINE CLARITY CLEAR (CLEAR); URINE COLOR YELLOW
[2018-02-14 17:59] LABS: URINE BACTERIA NONE SEEN /hpf (NONE SEEN); URINE EPITHELIAL CELLS NONE SEEN /lpf (FEW); URINE RBC NONE SEEN /hpf (0-5); URINE WBC NONE SEEN /hpf (0-5)
[2018-02-15] MEDS: Multivitamin Tab PO SCH (08:03)
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
[2018-02-15] MEDS ORDERED: Haloperidol Lactate 5 mg/mL 1mL Vial ONE (14:02)
[2018-02-15] MEDS ORDERED: Haloperidol Lactate 5 mg/mL 1mL Vial IM PRN (14:14)
[2018-02-15] MEDS ORDERED: Haloperidol Lactate 5 mg/mL 1mL Vial IM ONE (14:45)
[2018-02-16] MEDS: Multivitamin Tab PO SCH (08:40)
--- NOTE | 2018-02-16 15:34 | History & Physical ---
ADMIT DATE: 02/14/2018 HISTORY OF PRESENT ILLNESS: This patient was admitted for [facility] who apparently came in because the patient was very psychotic and the patient came to the ER. The patient was seen by Dr. Wells and the patient was very agitated and angry. The patient was not able to give me any history. PHYSICAL EXAMINATION: HEAD: Normal. ENT: Normal. NECK: Supple, nontender. LUNGS: Clear. CARDIOVASCULAR SYSTEM: S1, S2 heard. ABDOMEN: Soft. Bowel sounds heard. CENTRAL NERVOUS SYSTEM: The patient is agitated. DIAGNOSES: Agitation, psychosis, and no major medical problems. I will follow the patient along with Dr. Clements. JOB# [id number]
--- NOTE | 2018-02-16 18:04 | Progress Notes ---
DATE: 02/15/2018 SUBJECTIVE: Chart reviewed and the patient interviewed. Also discussed the patient's condition with the staff and reviewed records and labs. The patient is still in angry and irritable mood and has angry outbursts. The patient also is still actively hallucinating and talking to self. Also seems to be confused. The patient also is restless and he is still easily agitated. He also needs a lot of redirections. The patient also said that "that stupid skinny lady woke me up" and he is extremely angry and he is extremely irritable. Otherwise, the patient is compliant with taking his medications with no side effects. ASSESSMENT: The patient is still agitated and is still psychotic. TREATMENT PLAN: Continue monitoring his behavior and his condition closely and continue to work on his ineffective coping and followup. JOB# [id number]
--- NOTE | 2018-02-17 01:34 | Progress Notes ---
DATE: 02/16/2018 PSYCHIATRIC PROGRESS NOTE: Chart reviewed and the patient interviewed. Also, discussed the patient's condition with the staff and reviewed records and labs. The patient is anxious and is still suspicious and paranoid. The patient also is wandering around the facility. The patient also seems to be preoccupied and responding to stimuli. He also is delusional and paranoid and wants the staff to tell him "the names of all the staff members in [place]." He also is still restless and he is still disheveled and needs lots of redirections. ASSESSMENT: The patient is still psychotic and needs redirections. TREATMENT PLAN: Continue to monitor his behavior and condition and continue to work on impulse control and psychosis. JOB# [id number]
[2018-02-17] MEDS: Multivitamin Tab PO SCH (08:36)
--- NOTE | 2018-02-17 22:14 | General Progress Note ---
Subjective - Review of Systems Service Date: 02/17/18 Subjective: awake, nad Objective - Results Result Diagrams: 02/13/18 21:02 02/13/18 21:02 Recent Labs: Laboratory Last Values WBC 10.7 Th/cmm (4.8-10.8) 02/13/18 21:02 RBC 5.01 Mil/cmm (4.30-5.70) 02/13/18 21:02 Hgb 14.9 gm/dL (12-16) 02/13/18 21:02 Hct 44.3 % (41.0-60) 02/13/18 21:02 MCV 88.2 fl (80-99) 02/13/18 21:02 MCH 29.8 pg (26.0-30.0) 02/13/18 21:02 MCHC Differential 33.7 pg (28.0-36.0) 02/13/18 21:02 RDW 13.8 % (11.5-20.0) 02/13/18 21:02 Plt Count 238 Th/cmm (150-400) 02/13/18 21:02 MPV 8.1 fl 02/13/18 21:02 Neutrophils % 35.0 % (40.0-80.0) L 02/13/18 21:02 Lymphocytes % 50.6 % (20.0-50.0) H 02/13/18 21:02 Monocytes % 9.0 % (2.0-10.0) 02/13/18 21:02 Eosinophils % 4.6 % (0.0-5.0) 02/13/18 21:02 Basophils % 0.8 % (0.0-2.0) 02/13/18 21:02 Sodium 136 mEq/L (136-145) 02/13/18 21:02 Potassium 3.8 mEq/L (3.5-5.1) 02/13/18 21:02 Chloride 106 mEq/L (98-107) 02/13/18 21:02 Carbon Dioxide 22.6 mEq/L (21.0-31.0) 02/13/18 21:02 Anion Gap 11.2 (7.0-16.0) 02/13/18 21:02 BUN 16 mg/dL (7-25) 02/13/18 21:02 Creatinine 1.4 mg/dL (0.7-1.3) H 02/13/18 21:02 Est GFR ( Amer) > 60.0 ml/min (>90) 02/13/18 21:02 Est GFR (Non-Af Amer) 55.9 ml/min 02/13/18 21:02 BUN/Creatinine Ratio 11.4 02/13/18 21:02 Glucose 99 mg/dL (70-105) 02/13/18 21:02 Calcium 9.8 mg/dL (8.6-10.3) 02/13/18 21:02 Total Bilirubin 0.4 mg/dL (0.3-1.0) 02/13/18 21:02 AST 28 U/L (13-39) 02/13/18 21:02 ALT 18 U/L (7-52) 02/13/18 21:02 Alkaline Phosphatase 58 U/L (34-104) 02/13/18 21:02 Total Protein 7.4 gm/dL (6.0-8.3) 02/13/18 21:02 Albumin 4.3 gm/dL (4.2-5.5) 02/13/18 21:02 Globulin 3.1 gm/dL 02/13/18 21:02 Albumin/Globulin Ratio 1.4 (1.0-1.8) 02/13/18 21:02 Urine Source CLEAN C 02/14/18 17:40 Urine Color YELLOW 02/14/18 17:40 Urine Clarity CLEAR (CLEAR) 02/14/18 17:40 Urine pH 6.0 (4.6 - 8.0) 02/14/18 17:40 Ur Specific Simpson <= 1.005 (1.005-1.030) 02/14/18 17:40 Urine Protein NEGATIVE mg/dL (NEGATIVE) 02/14/18 17:40 Urine Glucose (UA) NEGATIVE mg/dL (NEGATIVE) 02/14/18 17:40 Urine Ketones NEGATIVE mg/dL (NEGATIVE) 02/14/18 17:40 Urine Blood NEGATIVE (NEGATIVE) 02/14/18 17:40 Urine Nitrate NEGATIVE (NEGATIVE) 02/14/18 17:40 Urine Bilirubin NEGATIVE (NEGATIVE) 02/14/18 17:40 Urine Urobilinogen 0.2 E.U./dL (0.2 - 1.0) 02/14/18 17:40 Ur Leukocyte Esterase NEGATIVE (NEGATIVE) 02/14/18 17:40 Urine RBC NONE SEEN /hpf (0-5) 02/14/18 17:40 Urine WBC NONE SEEN /hpf (0-5) 02/14/18 17:40 Ur Epithelial Cells NONE SEEN /lpf (FEW) 02/14/18 17:40 Urine Bacteria NONE SEEN /hpf (NONE SEEN) 02/14/18 17:40 - Physical Exam Vitals and I&O: Vital Signs Temp 98.2 F 02/17/18 20:00 Pulse 99 02/17/18 20:00 Resp 20 02/17/18 20:00 BP 118/83 02/17/18 20:00 Pulse Ox 96 02/17/18 20:00 Intake & Output 02/17/18 02/17/18 02/18/18 06:59 18:59 06:59 Intake Total 500 Balance 500 Intake: Oral 500 Other: # Voids 3 # Bowel Movements 0 Active Medications: Current Medications Acetaminophen (Tylenol) 650 mg PO Q4HR PRN PRN Reason: Mild Pain / Temp above 100 Stop: 04/14/18 23:00 Al Hydrox/Mg Hydrox/Simethicone (Maalox) 30 ml PO Q4HR PRN PRN Reason: GI DISTRESS Stop: 04/14/18 23:00 Diphenhydramine HCl (Benadryl 50 Mg/Ml) 50 mg IM Q4HR PRN PRN Reason: Agitation Stop: 04/16/18 14:16 Last Admin: 02/15/18 14:10 Dose: 50 mg Docusate Sodium (Colace) 250 mg PO DAILY [facility] Stop: 04/15/18 08:59 Last Admin: 02/17/18 08:36 Dose: 250 mg Lorazepam (Ativan) 1 mg PO Q4HR PRN; Protocol PRN Reason: Anxiety Stop: 04/16/18 02:59 Last Admin: 02/16/18 20:44 Dose: 1 mg Magnesium Hydroxide (Milk Of Magnesia) 30 ml PO HS PRN PRN Reason: Constipation Stop: 04/14/18 23:00 Metoprolol Tartrate (Lopressor) 12.5 mg PO BID [facility] Stop: 04/15/18 08:59 Last Admin: 02/17/18 17:21 Dose: 12.5 mg Multivitamins/Vitamin C (Theragran) 1 tab PO DAILY [facility] Stop: 04/15/18 08:59 Last Admin: 02/17/18 08:36 Dose: 1 tab Quetiapine Fumarate (Seroquel) 400 mg PO BID [facility]; Protocol Stop: 04/15/18 08:59 Last Admin: 02/17/18 17:15 Dose: 400 mg Zolpidem Tartrate (Ambien) 5 mg PO HS PRN PRN Reason: Insomnia Stop: 04/14/18 22:34 Last Admin: 02/17/18 21:43 Dose: 5 mg General: Alert Neck: Supple Cardiovascular: Regular rate Lungs: Clear to auscultation Abdomen: Bowel sounds Assessment/Plan - Assessment Assessment: psychosis agitation - Plan Plan: cpm Nutritional Asmnt/Malnutr-PDOC - Dietary Evaluation Malnutrition Findings (Please click <Entered> for more info): Nutritional Asmnt/Malnutrition Start: 02/17/18 14: 59 Text: Status: Complete Freq: Protocol: Document 02/17/18 15:00 ALLISON (Rec: 02/17/18 15:16 ALLISON [email or web address]) Nutritional Asmnt/Malnutrition Patient General Information Nutritional Screening Moderate Risk Diagnosis psychosis Pertinent Medical Hx/Surgical Hx schizophrenia Subjective Information Pt seen talking with social woker at time of visit. Per EMR, PO intake 100% of meals. Current Diet Order/ Nutrition Support mech soft chopped AIXA renal 80gm Pertinent Medications theragran, seroquel Pertinent Labs 02/13 Cr 1.4 Nutritional Hx/Data Height 1.65 m Height (Calculated Centimeters) 165.1 Current Weight (lbs) 65.771 kg Weight (Calculated Kilograms) 65.8 Weight (Calculated Grams) 75705.9 Body Mass Index (BMI) 24.1 Weight Status Approriate GI Symptoms GI Symptoms None Last BM none Difficult in: None Skin Integrity/Comment: intact Current %PO Good (75-100%) Estimated Nutritional Goals BEE in Kcals: Using Current wt Calories/Kcals/Kg 25-30 Kcals Calculated 8747-6112 Protein: Using Current wt Protein g/k Protein Calculated 60 Fluid: ml 1500-1800ml (1ml/kcal) Nutritional Problem No current Nutrition Prob Problem N/A Malnutrition Alert Is there a minimum of two criteria No selected? Query Text:Check all the applicable criteria. A minimum of two criteria are recommended for diagnosis of either severe or non-severe malnutrition. Malnutrition Related to Morbid Obesity Malnutrition related to morbid obesity No Intervention/Recommendation Comments 1. Consider remove renal diet since no hx of renal dysfunction and BUN WNL. 2. Monitor PO intake, wt, labs and skin integrity 3. F/U as low risk in 7 days, 02/24 Expected Outcomes/Goals Expected Outcomes/Goals 1. PO intake to meet at least 75% of nutritional needs. 2. Wt stability, skin to remain intact, labs to approach WNL.
[2018-02-18] MEDS: Multivitamin Tab PO SCH (09:45)
--- NOTE | 2018-02-18 11:46 | Progress Notes ---
DATE: SUBJECTIVE: Chart reviewed and the patient interviewed. Also discussed the patient's condition with the staff and reviewed records and labs. The patient is hyperverbal and he is still in irritable mood. The patient also is demanding. The patient also is focused on smoking and continuously asking he has to go for smoke. Difficulty following directions. Otherwise, the patient is compliant with taking medications with no side effect. ASSESSMENT: The patient is still agitated. TREATMENT PLAN: Continue to monitor his behavior and his condition closely. Also, continue to work on his ineffective coping and poor impulse control and continue to follow up. [facility]# [id number]
--- NOTE | 2018-02-18 20:29 | Progress Notes ---
DATE: 02/18/2018 SUBJECTIVE: The patient was seen in his room. The patient appears to be guarded and easily gets agitated. Otherwise, the patient is in no acute distress. OBJECTIVE: VITAL SIGNS: Temperature 97.8, heart rate of 63, blood pressure 132/69, respiration of 20, 100% on room air. HEENT: Head is atraumatic and normocephalic. Eyes: Bilateral conjunctivae are clear. Bilateral pupils are equally round and reactive. NECK: Supple. No JVD. CARDIOVASCULAR: S1 and S2, without murmur. PULMONARY: Clear to auscultation. GASTROINTESTINAL: Soft and nontender without guarding. Positive bowel sounds. MUSCULOSKELETAL: No clubbing. No cyanosis noted. ASSESSMENT: 1. Schizophrenia. 2. Hypertension. 3. Osteoarthritis. PLAN: We will keep the patient inpatient [facility]. We will follow up with a psychiatrist to monitor the patient's condition and behavior. Treatment plans were discussed with the patient's nurse. Treatment plans were discussed with Dr. Sol. JOB# [id number]
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
[2018-02-19] MEDS: Multivitamin Tab PO SCH (08:44)
--- NOTE | 2018-02-19 13:35 | General Progress Note ---
Subjective - Review of Systems Events since last encounter: in no acute distress seems confused irritable Subjective: awake, nad Objective - Results Result Diagrams: 02/13/18 21:02 02/13/18 21:02 Recent Labs: Laboratory Last Values WBC 10.7 Th/cmm (4.8-10.8) 02/13/18 21:02 RBC 5.01 Mil/cmm (4.30-5.70) 02/13/18 21:02 Hgb 14.9 gm/dL (12-16) 02/13/18 21:02 Hct 44.3 % (41.0-60) 02/13/18 21:02 MCV 88.2 fl (80-99) 02/13/18 21:02 MCH 29.8 pg (26.0-30.0) 02/13/18 21: MCHC Differential 33.7 pg (28.0-36.0) 02/13/18 21:02 RDW 13.8 % (11.5-20.0) 02/13/18 21:02 Plt Count 238 Th/cmm (150-400) 02/13/18 21:02 MPV 8.1 fl 02/13/18 21:02 Neutrophils % 35.0 % (40.0-80.0) L 02/13/18 21:02 Lymphocytes % 50.6 % (20.0-50.0) H 02/13/18 21:02 Monocytes % 9.0 % (2.0-10.0) 02/13/18 21:02 Eosinophils % 4.6 % (0.0-5.0) 02/13/18 21:02 Basophils % 0.8 % (0.0-2.0) 02/13/18 21:02 Sodium 136 mEq/L (136-145) 02/13/18 21:02 Potassium 3.8 mEq/L (3.5-5.1) 02/13/18 21:02 Chloride 106 mEq/L (98-107) 02/13/18 21:02 Carbon Dioxide 22.6 mEq/L (21.0-31.0) 02/13/18 21:02 Anion Gap 11.2 (7.0-16.0) 02/13/18 21:02 BUN 16 mg/dL (7-25) 02/13/18 21:02 Creatinine 1.4 mg/dL (0.7-1.3) H 02/13/18 21:02 Est GFR ( Amer) > 60.0 ml/min (>90) 02/13/18 21:02 Est GFR (Non-Af Amer) 55.9 ml/min 02/13/18 21:02 BUN/Creatinine Ratio 11.4 02/13/18 21:02 Glucose 99 mg/dL (70-105) 02/13/18 21:02 Calcium 9.8 mg/dL (8.6-10.3) 02/13/18 21:02 Total Bilirubin 0.4 mg/dL (0.3-1.0) 02/13/18 21:02 AST 28 U/L (13-39) 02/13/18 21:02 ALT 18 U/L (7-52) 02/13/18 21:02 Alkaline Phosphatase 58 U/L (34-104) 02/13/18 21:02 Total Protein 7.4 gm/dL (6.0-8.3) 02/13/18 21:02 Albumin 4.3 gm/dL (4.2-5.5) 02/13/18 21:02 Globulin 3.1 gm/dL 02/13/18 21:02 Albumin/Globulin Ratio 1.4 (1.0-1.8) 02/13/18 21:02 Urine Source CLEAN C 02/14/18 17:40 Urine Color YELLOW 02/14/18 17:40 Urine Clarity CLEAR (CLEAR) 02/14/18 17:40 Urine pH 6.0 (4.6 - 8.0) 02/14/18 17:40 Ur Specific [place] <= 1.005 (1.005-1.030) 02/14/18 17:40 Urine Protein NEGATIVE mg/dL (NEGATIVE) 02/14/18 17:40 Urine Glucose (UA) NEGATIVE mg/dL (NEGATIVE) 02/14/18 17:40 Urine Ketones NEGATIVE mg/dL (NEGATIVE) 02/14/18 17:40 Urine Blood NEGATIVE (NEGATIVE) 02/14/18 17:40 Urine Nitrate NEGATIVE (NEGATIVE) 02/14/18 17:40 Urine Bilirubin NEGATIVE (NEGATIVE) 02/14/18 17:40 Urine Urobilinogen 0.2 E.U./dL (0.2 - 1.0) 02/14/18 17:40 Ur Leukocyte Esterase NEGATIVE (NEGATIVE) 02/14/18 17:40 Urine RBC NONE SEEN /hpf (0-5) 02/14/18 17:40 Urine WBC NONE SEEN /hpf (0-5) 02/14/18 17:40 Ur Epithelial Cells NONE SEEN /lpf (FEW) 02/14/18 17:40 Urine Bacteria NONE SEEN /hpf (NONE SEEN) 02/14/18 17:40 - Physical Exam Vitals and I&O: Vital Signs Temp 98.8 F 02/19/18 04:52 Pulse 61 02/19/18 08:43 Resp 20 02/19/18 04:52 BP 115/75 02/19/18 08:43 Pulse Ox 97 02/19/18 04:52 Intake & Output 02/18/18 02/19/18 02/19/18 18:59 06:59 18:59 Intake Total 1200 480 Balance 1200 480 Intake: Oral 1200 480 Other: # Voids 4 2 Active Medications: Current Medications Acetaminophen (Tylenol) 650 mg PO Q4HR PRN PRN Reason: Mild Pain / Temp above 100 Stop: 04/14/18 23:00 Al Hydrox/Mg Hydrox/Simethicone (Maalox) 30 ml PO Q4HR PRN PRN Reason: GI DISTRESS Stop: 04/14/18 23:00 Diphenhydramine HCl (Benadryl 50 Mg/Ml) 50 mg IM Q4HR PRN PRN Reason: Agitation Stop: 04/16/18 14:16 Last Admin: 02/15/18 14:10 Dose: 50 mg Docusate Sodium (Colace) 250 mg PO DAILY TIMBO Stop: 04/15/18 08:59 Last Admin: 02/19/18 08:44 Dose: 250 mg Lorazepam (Ativan) 1 mg PO Q4HR PRN; Protocol PRN Reason: Anxiety Stop: 04/16/18 02:59 Last Admin: 02/16/18 20:44 Dose: 1 mg Magnesium Hydroxide (Milk Of Magnesia) 30 ml PO HS PRN PRN Reason: Constipation Stop: 04/14/18 23:00 Metoprolol Tartrate (Lopressor) 12.5 mg PO BID TIMBO Stop: 04/15/18 08:59 Last Admin: 02/19/18 08:43 Dose: 12.5 mg Multivitamins/Vitamin C (Theragran) 1 tab PO DAILY TIMBO Stop: 04/15/18 08:59 Last Admin: 02/19/18 08:44 Dose: 1 tab Quetiapine Fumarate (Seroquel) 400 mg PO BID TIMBO; Protocol Stop: 04/15/18 08:59 Last Admin: 02/19/18 08:42 Dose: 400 mg Zolpidem Tartrate (Ambien) 5 mg PO HS PRN PRN Reason: Insomnia Stop: 04/14/18 22:34 Last Admin: 02/18/18 21:22 Dose: 5 mg General: Alert Neck: Supple Cardiovascular: Regular rate Lungs: Clear to auscultation Abdomen: Bowel sounds Assessment/Plan - Problem List Patient Problems: All Active Problems HTN (hypertension) (Acute) I10 Osteoarthritis (Acute) M19.90 Schizophrenia (Acute) F20.9 - Assessment Assessment: psychosis agitation - Plan Plan: cpm Nutritional Asmnt/Malnutr-PDOC - Dietary Evaluation Malnutrition Findings (Please click <Entered> for more info): Nutritional Asmnt/Malnutrition Start: 02/17/18 14: 59 Text: Status: Complete Freq: Protocol: Document 02/17/18 15:00 LCHENG (Rec: 02/17/18 15:16 [email or web address]) Nutritional Asmnt/Malnutrition Patient General Information Nutritional Screening Moderate Risk Diagnosis psychosis Pertinent Medical Hx/Surgical Hx schizophrenia Subjective Information Pt seen talking with social woker at time of visit. Per EMR, PO intake 100% of meals. Current Diet Order/ Nutrition Support mech soft chopped AIXA renal 80gm Pertinent Medications theragran, seroquel Pertinent Labs 02/13 Cr 1.4 Nutritional Hx/Data Height 1.65 m Height (Calculated Centimeters) 165.1 Current Weight (lbs) 65.771 kg Weight (Calculated Kilograms) 65.8 Weight (Calculated Grams) 04078.9 Body Mass Index (BMI) 24.1 Weight Status Approriate GI Symptoms GI Symptoms None Last BM none Difficult in: None Skin Integrity/Comment: intact Current %PO Good (75-100%) Estimated Nutritional Goals BEE in Kcals: Using Current wt Calories/Kcals/Kg 25-30 Kcals Calculated 1940-4855 Protein: Using Current wt Protein g/k Protein Calculated 60 Fluid: ml 1500-1800ml (1ml/kcal) Nutritional Problem No current Nutrition Prob Problem N/A Malnutrition Alert Is there a minimum of two criteria No selected? Query Text:Check all the applicable criteria. A minimum of two criteria are recommended for diagnosis of either severe or non-severe malnutrition. Malnutrition Related to Morbid Obesity Malnutrition related to morbid obesity No Intervention/Recommendation Comments 1. Consider remove renal diet since no hx of renal dysfunction and BUN WNL. 2. Monitor PO intake, wt, labs and skin integrity 3. F/U as low risk in 7 days, 02/24 Expected Outcomes/Goals Expected Outcomes/Goals 1. PO intake to meet at least 75% of nutritional needs. 2. Wt stability, skin to remain intact, labs to approach WNL.
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
[2018-02-20] MEDS: Multivitamin Tab PO SCH (09:02)
--- NOTE | 2018-02-20 16:07 | General Progress Note ---
Subjective - Review of Systems Events since last encounter: seems confused irritable Subjective: awake, nad Objective - Results Result Diagrams: 02/13/18 21:02 02/13/18 21:02 Recent Labs: Laboratory Last Values WBC 10.7 Th/cmm (4.8-10.8) 02/13/18 21:02 RBC 5.01 Mil/cmm (4.30-5.70) 02/13/18 21:02 Hgb 14.9 gm/dL (12-16) 02/13/18 21:02 Hct 44.3 % (41.0-60) 02/13/18 21:02 MCV 88.2 fl (80-99) 02/13/18 21:02 MCH 29.8 pg (26.0-30.0) 02/13/18 21: MCHC Differential 33.7 pg (28.0-36.0) 02/13/18 21:02 RDW 13.8 % (11.5-20.0) 02/13/18 21:02 Plt Count 238 Th/cmm (150-400) 02/13/18 21:02 MPV 8.1 fl 02/13/18 21:02 Neutrophils % 35.0 % (40.0-80.0) L 02/13/18 21:02 Lymphocytes % 50.6 % (20.0-50.0) H 02/13/18 21:02 Monocytes % 9.0 % (2.0-10.0) 02/13/18 21:02 Eosinophils % 4.6 % (0.0-5.0) 02/13/18 21:02 Basophils % 0.8 % (0.0-2.0) 02/13/18 21:02 Sodium 136 mEq/L (136-145) 02/13/18 21:02 Potassium 3.8 mEq/L (3.5-5.1) 02/13/18 21:02 Chloride 106 mEq/L (98-107) 02/13/18 21:02 Carbon Dioxide 22.6 mEq/L (21.0-31.0) 02/13/18 21:02 Anion Gap 11.2 (7.0-16.0) 02/13/18 21:02 BUN 16 mg/dL (7-25) 02/13/18 21:02 Creatinine 1.4 mg/dL (0.7-1.3) H 02/13/18 21:02 Est GFR ( Amer) > 60.0 ml/min (>90) 02/13/18 21:02 Est GFR (Non-Af Amer) 55.9 ml/min 02/13/18 21:02 BUN/Creatinine Ratio 11.4 02/13/18 21:02 Glucose 99 mg/dL (70-105) 02/13/18 21:02 Calcium 9.8 mg/dL (8.6-10.3) 02/13/18 21:02 Total Bilirubin 0.4 mg/dL (0.3-1.0) 02/13/18 21:02 AST 28 U/L (13-39) 02/13/18 21:02 ALT 18 U/L (7-52) 02/13/18 21:02 Alkaline Phosphatase 58 U/L (34-104) 02/13/18 21:02 Total Protein 7.4 gm/dL (6.0-8.3) 02/13/18 21:02 Albumin 4.3 gm/dL (4.2-5.5) 02/13/18 21:02 Globulin 3.1 gm/dL 02/13/18 21:02 Albumin/Globulin Ratio 1.4 (1.0-1.8) 02/13/18 21:02 Urine Source CLEAN C 02/14/18 17:40 Urine Color YELLOW 02/14/18 17:40 Urine Clarity CLEAR (CLEAR) 02/14/18 17:40 Urine pH 6.0 (4.6 - 8.0) 02/14/18 17:40 Ur Specific [place] <= 1.005 (1.005-1.030) 02/14/18 17:40 Urine Protein NEGATIVE mg/dL (NEGATIVE) 02/14/18 17:40 Urine Glucose (UA) NEGATIVE mg/dL (NEGATIVE) 02/14/18 17:40 Urine Ketones NEGATIVE mg/dL (NEGATIVE) 02/14/18 17:40 Urine Blood NEGATIVE (NEGATIVE) 02/14/18 17:40 Urine Nitrate NEGATIVE (NEGATIVE) 02/14/18 17:40 Urine Bilirubin NEGATIVE (NEGATIVE) 02/14/18 17:40 Urine Urobilinogen 0.2 E.U./dL (0.2 - 1.0) 02/14/18 17:40 Ur Leukocyte Esterase NEGATIVE (NEGATIVE) 02/14/18 17:40 Urine RBC NONE SEEN /hpf (0-5) 02/14/18 17:40 Urine WBC NONE SEEN /hpf (0-5) 02/14/18 17:40 Ur Epithelial Cells NONE SEEN /lpf (FEW) 02/14/18 17:40 Urine Bacteria NONE SEEN /hpf (NONE SEEN) 02/14/18 17:40 - Physical Exam Vitals and I&O: Vital Signs Temp 97.8 F 02/20/18 04:41 Pulse 70 02/20/18 09:01 Resp 18 02/20/18 10:51 BP 118/80 02/20/18 09:01 Pulse Ox 98 02/20/18 04:41 Intake & Output 02/19/18 02/20/18 02/20/18 18:59 06:59 18:59 Intake Total 240 Balance 240 Intake: Oral 240 Other: # Voids 2 Active Medications: Current Medications Acetaminophen (Tylenol) 650 mg PO Q4HR PRN PRN Reason: Mild Pain / Temp above 100 Stop: 04/14/18 23:00 Al Hydrox/Mg Hydrox/Simethicone (Maalox) 30 ml PO Q4HR PRN PRN Reason: GI DISTRESS Stop: 04/14/18 23:00 Diphenhydramine HCl (Benadryl 50 Mg/Ml) 50 mg IM Q4HR PRN PRN Reason: Agitation Stop: 04/16/18 14:16 Last Admin: 02/15/18 14:10 Dose: 50 mg Docusate Sodium (Colace) 250 mg PO DAILY TIMBO Stop: 04/15/18 08:59 Last Admin: 02/20/18 09:02 Dose: 250 mg Lorazepam (Ativan) 1 mg PO Q4HR PRN; Protocol PRN Reason: Anxiety Stop: 04/16/18 02:59 Last Admin: 02/20/18 09:01 Dose: 1 mg Magnesium Hydroxide (Milk Of Magnesia) 30 ml PO HS PRN PRN Reason: Constipation Stop: 04/14/18 23:00 Metoprolol Tartrate (Lopressor) 12.5 mg PO BID TIMBO Stop: 04/15/18 08:59 Last Admin: 02/20/18 09:01 Dose: 12.5 mg Multivitamins/Vitamin C (Theragran) 1 tab PO DAILY TIMBO Stop: 04/15/18 08:59 Last Admin: 02/20/18 09:02 Dose: 1 tab Quetiapine Fumarate (Seroquel) 400 mg PO BID TIMBO; Protocol Stop: 04/15/18 08:59 Last Admin: 02/20/18 09:01 Dose: 400 mg Zolpidem Tartrate (Ambien) 5 mg PO HS PRN PRN Reason: Insomnia Stop: 04/14/18 22:34 Last Admin: 02/18/18 21:22 Dose: 5 mg General: Alert Neck: Supple Cardiovascular: Regular rate Lungs: Clear to auscultation Abdomen: Bowel sounds Assessment/Plan - Problem List Patient Problems: All Active Problems HTN (hypertension) (Acute) I10 Osteoarthritis (Acute) M19.90 Schizophrenia (Acute) F20.9 - Assessment Assessment: psychosis agitation - Plan Plan: cpm Nutritional Asmnt/Malnutr-PDOC - Dietary Evaluation Malnutrition Findings (Please click <Entered> for more info): Nutritional Asmnt/Malnutrition Start: 02/17/18 14: 59 Text: Status: Complete Freq: Protocol: Document 02/17/18 15:00 [email or web address] (Rec: 02/17/18 15:16 LCHENG [email or web address]) Nutritional Asmnt/Malnutrition Patient General Information Nutritional Screening Moderate Risk Diagnosis psychosis Pertinent Medical Hx/Surgical Hx schizophrenia Subjective Information Pt seen talking with social woker at time of visit. Per EMR, PO intake 100% of meals. Current Diet Order/ Nutrition Support mech soft chopped AIXA renal 80gm Pertinent Medications theragran, seroquel Pertinent Labs 02/13 Cr 1.4 Nutritional Hx/Data Height 1.65 m Height (Calculated Centimeters) 165.1 Current Weight (lbs) 65.771 kg Weight (Calculated Kilograms) 65.8 Weight (Calculated Grams) 49558.9 Body Mass Index (BMI) 24.1 Weight Status Approriate GI Symptoms GI Symptoms None Last BM none Difficult in: None Skin Integrity/Comment: intact Current %PO Good (75-100%) Estimated Nutritional Goals BEE in Kcals: Using Current wt Calories/Kcals/Kg 25-30 Kcals Calculated 3869-4552 Protein: Using Current wt Protein g/k Protein Calculated 60 Fluid: ml 1500-1800ml (1ml/kcal) Nutritional Problem No current Nutrition Prob Problem N/A Malnutrition Alert Is there a minimum of two criteria No selected? Query Text:Check all the applicable criteria. A minimum of two criteria are recommended for diagnosis of either severe or non-severe malnutrition. Malnutrition Related to Morbid Obesity Malnutrition related to morbid obesity No Intervention/Recommendation Comments 1. Consider remove renal diet since no hx of renal dysfunction and BUN WNL. 2. Monitor PO intake, wt, labs and skin integrity 3. F/U as low risk in 7 days, 02/24 Expected Outcomes/Goals Expected Outcomes/Goals 1. PO intake to meet at least 75% of nutritional needs. 2. Wt stability, skin to remain intact, labs to approach WNL.
--- NOTE | 2018-02-20 23:37 | Progress Notes ---
DATE: SUBJECTIVE: Chart reviewed and the patient interviewed. Also discussed the patient's condition with the staff and reviewed records and labs. The patient is still angry and still has episodes of irritability and agitation. The patient also is still having mood swings. Otherwise, the patient is compliant with taking his medications with no side effect of medications. ASSESSMENT: The patient is still agitated and psychotic. TREATMENT PLAN: Continue Seroquel 400 mg twice a day. Also, continue to monitor behavior and continue to follow up. [facility]# [id number]
[2018-02-21] MEDS: Multivitamin Tab PO SCH (08:50)
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
== END 2018-02-21 17:20 | DRG 885 ==
LOC: ER 20:34 → GERO2 21:37
PROVIDERS: ADMIT Psychiatry & Neurology Psychiatry; ATTEND Psychiatry & Neurology Psychiatry
DX: F25.0 Schizoaffective disorder, bipolar type (principal); F29 Unspecified psychosis not due to a substance or known physiological condition; I10 Essential (primary) hypertension; M19.90 Unspecified osteoarthritis, unspecified site
CPT/HCPCS: 36415-UA; 80053-TC; 81001-TC; 85025-TC; 93005; G0410; J1200; J1630; J2060

== ENCOUNTER 2018-03-30 23:40 | Inpatient (IN) | payer MEDICARE, MEDICAID ==
--- NOTE | 2018-03-31 00:02 | ED Physician Chart ---
ED Chief Complaint/HPI - Patient Information Date Seen:: 03/30/18 Time Seen:: 23:55 Chief Complaint:: aggressive behavior History of Present Illness:: Patient has reportedly been exhibiting aggressive behavior at his extended care facility Allergies:: Allergies Allergy/AdvReac Type Severity Reaction Status Date / Time egg Allergy HIVES Verified 03/30/18 23:42 Vitals:: Vital Signs - 8 hr 03/30/18 23:52 Temp 98.3 F HR 89 RR 17 BP 132/74 O2 Sat % 96 Historian:: Patient Review:: Nurse's Note Reviewed, Transfer documents Reviewed ED Review of Systems - Review of Systems General/Constitutional: No fever, No chills, No weight loss, No weakness, No diaphoresis, No edema, No loss of appetite Skin: No skin lesions, No rash, No bruising Head: No headache, No light-headedness Eyes: No loss of vision, No pain, No diplopia ENT: No earache, No nasal drainage, No sore throat, No tinnitus Neck: No neck pain, No swelling, No thyromegaly, No stiffness, No mass noted Cardio Vascular: No chest pain, No palpitations, No PND, No orthopnea, No edema Pulmonary: No SOB, No cough, No sputum, No wheezing GI: No nausea, No vomiting, No diarrhea, No pain, No melena, No hematochezia, No constipation, No hematemesis G/U: No dysuria, No frequency, No hematuria Musculoskeletal: No bone or joint pain, No back pain, No muscle pain Endocrine: No polyuria, No polydipsia Psychiatric: Prior psych history, No depression, No anxiety, No suicidal ideation Hematopoietic: No bruising, No lymphadenopathy Allergic/Immuno: No urticaria, No angioedema Neurological: No syncope, No focal symptoms, No weakness, No paresthesia, No headache, No seizure, No dizziness, No confusion, No vertigo ED Past Medical History - Past Medical History Past Medical History: HTN, Other (acute renal failure; regular schizophrenia) Family History: Other (unavailable) Social History: Smoker, Care Facility Surgical History: other (unavailable) Psychiatricy History: Schizophrenia Medication: Reviewed Family Medical History - Family Member Mother History Unknown: Yes ED Physical Exam - Physical Examination General/Constitutional: Awake, Well-developed, well-nourished, Alert, No distress, GCS 15, Non-toxic appearing, Ambulatory Other Gen/Cons comments:: Patient is a very poor historian Head: Atraumatic Eyes: Lids, conjuctiva normal, PERRL, EOMI Skin: Nl inspection, No rash, No skin lesions, No ecchymosis, Well hydrated, No lymphadenopathy ENMT: External ears, nose nl, Nasal exam nl, Lips, teeth, gums nl Neck: Nontender, Full ROM w/o pain, No JVD, No nuchal rigidity, No bruit, No mass, No stridor Respiratory: Nl effort/Exclusion, Clear to Auscultation, No Wheeze/Rhonchi/Rales Cardio Vascular: RRR, No murmur, gallop, rubs, NL S1 S2 GI: No tenderness/rebounding/guarding, No organomegaly, No hernia, Normal BS's, Nondistended, No mass/bruits, No McBurney tenderness : No CVA tenderness Other Extremities comments:: Swelling ulnar-sided right palm Neuro/Psych: Alert/oriented, DTR's symmetric, Normal sensory exam, Normal motor strength, Judgement/insight normal, Mood normal, Normal gait, No focal deficits Misc: Normal back, No paraspinal tenderness ED Labs/Radiology/EKG Results - Lab Results Results: Laboratory Results - last 24 hr 03/30/18 03/30/18 03/31/18 00:25 00:25 00:10 WBC 12.9 H RBC 5.21 Hgb 15.2 Hct 45.8 MCV 87.9 MCH 29.2 MCHC Differential 33.2 RDW 14.9 Plt Count 271 MPV 7.9 Neutrophils % 57.0 Lymphocytes % 31.5 Monocytes % 4.8 Eosinophils % 2.1 Basophils % 4.6 H Sodium 133 L Potassium 3.6 Chloride 101 Carbon Dioxide 23.9 Anion Gap 11.7 BUN 12 Creatinine 1.1 Est GFR ( Amer) > 60.0 Est GFR (Non-Af Amer) > 60.0 BUN/Creatinine Ratio 10.9 Glucose 96 Calcium 10.0 Total Bilirubin 0.4 AST 34 ALT 17 Alkaline Phosphatase 77 Total Protein 7.6 Albumin 4.4 Globulin 3.2 Albumin/Globulin Ratio 1.4 Triglycerides 88 Cholesterol 147 LDL Cholesterol Direct 87 HDL Cholesterol 48 Urine Color YELLOW Urine Clarity CLEAR Urine pH 5.5 Ur Specific [place] <= 1.005 Urine Protein NEGATIVE Urine Glucose (UA) NEGATIVE Urine Ketones NEGATIVE Urine Blood NEGATIVE Urine Nitrate NEGATIVE Urine Bilirubin NEGATIVE Urine Urobilinogen 0.2 Ur Leukocyte Esterase NEGATIVE - EKG Interpretations Rate & Rhythm: normal sinus rhythm with a rate of 91 [place]: normal ED Septic Shock - . Is Septic Shock (SBP<90, OR Lactate>4 mmol\L) present?: No - <6hrs of presentation: Vital Signs: Vital Signs - 8 hr 03/30/ 23:52 Temp 98.3 F HR 89 RR 17 BP 132/74 O2 Sat % 96 ED Reassessment (Disposition) - Reassessment Reassessment Condition:: Unchanged - Diagnosis Diagnosis:: Agitation; schizophrenia - Patient Disposition Admitted to:: [facility] Admitting Medical Physician:: Dillon Temple Admitting Psych Physician:: Christina Fatima Condition at Disposition:: Stable, Unchanged
[2018-03-31 00:35] LABS: URINE SOURCE CLEAN C
[2018-03-31 00:35] LABS: % BASOPHILS 4.6 % (0.0-2.0); % EOSINOPHILS 2.1 % (0.0-5.0); % LYMPHOCYTES 31.5 % (20.0-50.0); % MONOCYTES 4.8 % (2.0-10.0); BASOPHILE ABSOLUTE 0.6 Th/cumm (0-0.2); EOSINOPHILE ABSOLUTE 0.3 Th/cmm (0.1-0.4); HEMATOCRIT 45.8 % (41.0-60); HEMOGLOBIN 15.2 gm/dL (12-16); LYMPHOCYTE ABSOLUTE 4.1 Th/cmm (1.5-3.0); MEAN CELL VOLUME 87.9 fl (80-99); MEAN CORPUSCULAR HEMOGLOBIN 29.2 pg (26.0-30.0); MEAN CORPUSCULAR HGB CONC 33.2 pg (28.0-36.0); MEAN PLATELET VOLUME 7.9 fl; MONOCYTE ABSOLUTE 0.6 Th/cmm (0.3-1.0); NEUTROPHILE ABSOLUTE 7.3 Th/cmm (1.8-8.0); PLATELET COUNT 271 Th/cmm (150-400); RED BLOOD COUNT 5.21 Mil/cmm (4.30-5.70); RED CELL DISTRIBUTION WIDTH 14.9 % (11.5-20.0); WHITE BLOOD COUNT 12.9 Th/cmm (4.8-10.8)
[2018-03-31 00:37] LABS: URINE BILIRUBIN NEGATIVE (NEGATIVE); URINE BLOOD NEGATIVE (NEGATIVE); URINE GLUCOSE (UA) NEGATIVE (NEGATIVE); URINE KETONE NEGATIVE (NEGATIVE); URINE LEUKOCYTE ESTERASE NEGATIVE (NEGATIVE); URINE NITRATE NEGATIVE (NEGATIVE); URINE PH 5.5 (4.6 - 8.0); URINE PROTEIN NEGATIVE (NEGATIVE); URINE UROBILINOGEN 0.2 E.U./dL (0.2 - 1.0)
[2018-03-31 00:52] LABS: URINE CLARITY CLEAR (CLEAR); URINE COLOR YELLOW
[2018-03-31 00:53] LABS: ALB/GLOB RATIO 1.4 (1.0-1.8); ALBUMIN 4.4 gm/dL (4.2-5.5); ALKALINE PHOSPHATASE 77 U/L (34-104); ANION GAP 11.7 (7.0-16.0); BILIRUBIN,TOTAL 0.4 mg/dL (0.3-1.0); BUN - UREA NITROGEN 12 mg/dL (7-25); CARBON DIOXIDE 23.9 mEq/L (21.0-31.0); CHLORIDE 101 mEq/L (98-107); CHOLESTEROL 147 mg/dL (<200); CREATININE - SERUM 1.1 mg/dL (0.7-1.3); GFR AFRICAN-AMERICAN > 60.0 ml/min (>90); GFR NON AFRICAN-AMERICAN > 60.0 ml/min; GLUCOSE 96 mg/dL (70-105); HDL -HIGH DENSITY LIPOPROTEIN 48 mg/dL (23-92); POTASSIUM SERUM 3.6 mEq/L (3.5-5.1); SGOT 34 U/L (13-39); SGPT/ALT 17 U/L (7-52); SODIUM SERUM 133 mEq/L (136-145); TOTAL PROTEIN,SERUM 7.6 gm/dL (6.0-8.3); TRIGLYCERIDES 88 mg/dL (<150)
[2018-03-31 02:39] VITALS: BP 132/74
[2018-03-31] MEDS ORDERED: Magnesium Hydroxide (MOM) 30 mL UDC PO PRN (04:21)
[2018-03-31] MEDS ORDERED: Haloperidol Lactate 5 mg/mL 1mL Vial ONE (08:24)
[2018-03-31] MEDS ORDERED: Haloperidol Lactate 5 mg/mL 1mL Vial IM ONE (08:27)
--- NOTE | 2018-03-31 08:44 | Diagnostic Imaging Report ---
Right hand (3 views) HISTORY: Pain, swelling The exam demonstrates a displaced fracture within the base and proximal shaft of the fifth metacarpal. Associated soft tissue swelling. IMPRESSION: 1. Displaced fracture involving the base and proximal shaft of the fifth metacarpal.
--- NOTE | 2018-03-31 10:09 | Psychiatric Evaluation ---
DATE OF SERVICE: 03/31/2018 PSYCHIATRIC INITIAL EVALUATION AND MENTAL STATUS EXAM PATIENT'S AGE: 57-year-old. SEX: Male. PHYSICIAN: Dr. Clements. CHIEF COMPLAINT: Agitation and aggressive behavior. HISTORY OF PRESENT ILLNESS: The patient is a 57-year-old male who has been under my care and resides in [facility]. The patient was brought into the hospital because of increased agitation and aggressive behavior and irritability. The patient also has been talking to himself and has been unable to follow any of staff directions. The patient also has been restless and has been having severe mood swings. Chart reviewed and the patient interviewed and discussed the patient's condition with the staff and reviewed records and labs. The patient is extremely irritable and is extremely agitated. The patient also has been rambling and is not able to follow directions. Also, was easily agitated. The patient also was suspicious and paranoid during my interview. Also, stuttering and speech is incoherent. PAST PSYCHIATRIC HISTORY: The patient has a history of schizoaffective disorder. PAST MEDICAL HISTORY: The patient has no major medical problems. SOCIAL HISTORY: The patient lives in [facility]. No known alcohol or drug use. The patient also is single and never and has no children. ALLERGIES: No known allergies. MENTAL STATUS EXAMINATION: The patient appears his stated age. Disheveled. Anxious. Irritable mood. Stuttering. Incoherent thoughts. The patient is actively hallucinating. He denies any auditory or visual hallucinations. The patient denies suicidal or homicidal ideations. The patient is alert and oriented to the situation, but not to the place or person. Impaired immediate, recent memory, but intact remote memory and he remembered his date. Poor insight. Poor judgment. ASSESSMENT: Schizoaffective disorder, bipolar type, severe, with psychotic features. TREATMENT PLAN: We will continue to monitor his behavior and his condition closely. Also, we will continue to work on his irritability and his agitation. Also, we will work on his poor impulse control and we will adjust the dose of his Seroquel. ESTIMATED LENGTH OF STAY: 5-7 days. THE PATIENT'S STRENGTHS AND WEAKNESSES: The patient's strength is not clear at this time. Weaknesses are his poor impulse control. AFTER DISCHARGE PLAN: Outpatient treatment and followup will continue as an outpatient and the patient will return to [place]. [facility]# [id number]
[2018-03-31 22:25] LABS: A1C % 5.7 % (4.0-6.0)
--- NOTE | 2018-04-01 18:25 | History & Physical ---
ADMIT DATE: 04/01/2018 CHIEF COMPLAINT: Aggressive behavior. HISTORY OF PRESENT ILLNESS: This is a 57-year-old male who is a custodial resident, admitted to the [facility] Unit due to aggressive behavior. PAST MEDICAL HISTORY: Hypertension, acute renal failure, schizophrenia. FAMILY HISTORY: Noncontributory. SOCIAL HISTORY: The patient is a smoker. SURGICAL HISTORY: Unknown. MEDICATIONS: Please see medication list. REVIEW OF SYSTEMS: GENERAL: Denies any fevers or chills. CARDIOVASCULAR: Denies chest pain. RESPIRATORY: Denies shortness of breath. GASTROINTESTINAL: Denies nausea, vomiting, abdominal pain. GENITOURINARY: Denies increased frequency. NEUROLOGIC: No headaches, seizures or syncope. All systems reviewed are negative. PHYSICAL EXAMINATION: GENERAL: The patient is well-developed, well-nourished, no apparent distress. VITAL SIGNS: Temperature is 97.8, heart rate 78, blood pressure 110/60, respirations 20, O2 98%. HEENT: Head; normocephalic, atraumatic. NECK: Supple. No mass. LUNGS: Clear bilaterally. ____. ABDOMEN: Soft, nontender. LABORATORY DATA: WBC 12.9, H and H 15.2 and 45.8, platelet of 271. Sodium 132, potassium 3.6, chloride 101, BUN 12, creatinine 1.1. ASSESSMENT: Agitation, hypertension, history of acute renal failure, schizophrenia. PLAN: Fall precautions will be initiated. We will monitor the patient's blood pressure closely. We will continue to follow this patient. [facility]# [id number]
--- NOTE | 2018-04-01 20:39 | Progress Notes ---
DATE: 04/01/2018 SUBJECTIVE: The patient in the hospital, coming in from [facility]. Increased agitation, aggressive behaviors, irritability, talking to himself, not following directions, irritable. On [id number], the patient is sleeping. I tried to wake him up. He opens his eyes and closes them, does not want to talk to me. Noted by staff to be anxious, easily irritable, agitated, slept for nearly 7 hours, anxious, still noted by staff to be malodorous, unkempt, poor motivation for self-care. ASSESSMENT: The patient refusing to speak with me. Oriented x 2 per staff, coming in because of aggressive behaviors. PLAN: We will continue to monitor. The patient remains impulsive, unpredictable. Given his ongoing symptoms, he is not safe for discharge. JOB# [id number]
[2018-04-02] MEDS ORDERED: Haloperidol Lactate 5 mg/mL 1mL Vial IM ONE (06:50)
--- NOTE | 2018-04-02 09:04 | Progress Notes ---
DATE: 04/02/2018 The patient agitated, responding to internal stimuli, impulsive, talking with his mom, not making any sense, currently on Seroquel, remains quite psychotic, requiring emergency medications, this morning Haldol 5, Benadryl 50 for psychotic agitation, responding heavily to internal stimuli, yelling at nursing staff, paranoid. ASSESSMENT: The patient is agitated, responding heavily to internal stimuli. We will give Haldol cocktail x 1 now and increase Seroquel dosing. Medications were noted. The patient slept fairly well with food analyst awakenings and needing high level of prompting and redirection. JOB# [id number]
--- NOTE | 2018-04-02 13:13 | General Progress Note ---
Subjective - Review of Systems Events since last encounter: patient remains psychotic Objective - Results Result Diagrams: 03/30/18 00:25 03/30/18 00:25 Recent Labs: Laboratory Last Values WBC 12.9 Th/cmm (4.8-10.8) H 03/30/18 00:25 RBC 5.21 Mil/cmm (4.30-5.70) 03/30/18 00:25 Hgb 15.2 gm/dL (12-16) 03/30/18 00:25 Hct 45.8 % (41.0-60) 03/30/18 00:25 MCV 87.9 fl (80-99) 03/30/18 00:25 MCH 29.2 pg (26.0-30.0) 03/30/18 00:25 MCHC Differential 33.2 pg (28.0-36.0) 03/30/18 00:25 RDW 14.9 % (11.5-20.0) 03/30/18 00: Plt Count 271 Th/cmm (150-400) 03/30/18 00:25 MPV 7.9 fl 03/30/18 00:25 Neutrophils % 57.0 % (40.0-80.0) 03/30/18 00:25 Lymphocytes % 31.5 % (20.0-50.0) 03/30/18 00:25 Monocytes % 4.8 % (2.0-10.0) 03/30/18 00:25 Eosinophils % 2.1 % (0.0-5.0) 03/30/18 00:25 Basophils % 4.6 % (0.0-2.0) H 03/30/18 00:25 Sodium 133 mEq/L (136-145) L 03/30/18 00:25 Potassium 3.6 mEq/L (3.5-5.1) 03/30/18 00:25 Chloride 101 mEq/L (98-107) 03/30/18 00:25 Carbon Dioxide 23.9 mEq/L (21.0-31.0) 03/30/18 00:25 Anion Gap 11.7 (7.0-16.0) 03/30/18 00:25 BUN 12 mg/dL (7-25) 03/30/18 00:25 Creatinine 1.1 mg/dL (0.7-1.3) 03/30/18 00:25 Est GFR ( Amer) > 60.0 ml/min (>90) 03/30/18 00:25 Est GFR (Non-Af Amer) > 60.0 ml/min 03/30/18 00:25 BUN/Creatinine Ratio 10.9 03/30/18 00:25 Glucose 96 mg/dL (70-105) 03/30/18 00:25 Hemoglobin A1c % 5.7 % (4.0-6.0) 03/30/18 00:25 Calcium 10.0 mg/dL (8.6-10.3) 03/30/18 00:25 Total Bilirubin 0.4 mg/dL (0.3-1.0) 03/30/18 00:25 AST 34 U/L (13-39) 03/30/18 00:25 ALT 17 U/L (7-52) 03/30/18 00:25 Alkaline Phosphatase 77 U/L (34-104) 03/30/18 00:25 Total Protein 7.6 gm/dL (6.0-8.3) 03/30/18 00:25 Albumin 4.4 gm/dL (4.2-5.5) 03/30/18 00:25 Globulin 3.2 gm/dL 03/30/18 00:25 Albumin/Globulin Ratio 1.4 (1.0-1.8) 03/30/18 00:25 Triglycerides 88 mg/dL (<150) 03/30/18 00:25 Cholesterol 147 mg/dL (<200) 03/30/18 00:25 LDL Cholesterol Direct 87 mg/dL (75-193) 03/30/18 00:25 HDL Cholesterol 48 mg/dL (23-92) 03/30/18 00:25 TSH 2.52 uIU/ml (0.34-5.60) 03/30/18 00:25 Urine Source CLEAN C 03/31/18 00:10 Urine Color YELLOW 03/31/18 00:10 Urine Clarity CLEAR (CLEAR) 03/31/18 00:10 Urine pH 5.5 (4.6 - 8.0) 03/31/18 00:10 Ur Specific [place] <= 1.005 (1.005-1.030) 03/31/18 00:10 Urine Protein NEGATIVE mg/dL (NEGATIVE) 03/31/18 00:10 Urine Glucose (UA) NEGATIVE mg/dL (NEGATIVE) 03/31/18 00:10 Urine Ketones NEGATIVE mg/dL (NEGATIVE) 03/31/18 00:10 Urine Blood NEGATIVE (NEGATIVE) 03/31/18 00:10 Urine Nitrate NEGATIVE (NEGATIVE) 03/31/18 00:10 Urine Bilirubin NEGATIVE (NEGATIVE) 03/31/18 00:10 Urine Urobilinogen 0.2 E.U./dL (0.2 - 1.0) 03/31/18 00:10 Ur Leukocyte Esterase NEGATIVE (NEGATIVE) 03/31/18 00:10 RPR NONREACTIVE (NONREACTIVE) 03/30/18 00:25 - Physical Exam Vitals and I&O: Vital Signs Temp 98.1 F 04/02/18 04:38 Pulse 81 04/02/18 04:38 Resp 18 04/02/18 04:38 BP 111/70 04/02/18 04:38 Pulse Ox 99 04/02/18 04:38 Intake & Output 04/01/18 04/02/18 04/02/18 18:59 06:59 18:59 Intake Total 1800 480 Balance 1800 480 Intake: Oral 1800 480 Other: # Voids 4 2 # Bowel Movements 0 Active Medications: Current Medications Acetaminophen (Tylenol) 650 mg PO Q4HR PRN PRN Reason: Mild Pain / Temp above 100 Stop: 05/30/18 04:20 Docusate Sodium (Colace) 100 mg PO BID [facility] Stop: 05/30/18 08:59 Last Admin: 04/02/18 09:41 Dose: 100 mg Lorazepam (Ativan) 0.5 mg PO Q4HR PRN; Protocol PRN Reason: Anxiety Stop: 04/30/18 02:39 Last Admin: 04/01/18 20:10 Dose: 0.5 mg Magnesium Hydroxide (Milk Of Magnesia) 30 ml PO HS PRN PRN Reason: Constipation Stop: 05/30/18 04:20 Metoprolol Tartrate (Lopressor) 12.5 mg PO BID [facility] Stop: 05/30/18 08:59 Last Admin: 04/02/18 09:41 Dose: Not Given Quetiapine Fumarate (Seroquel) 50 mg PO BID [facility]; Protocol Stop: 05/30/18 08:59 Last Admin: 04/02/18 09:41 Dose: 50 mg Quetiapine Fumarate (Seroquel) 500 mg PO HS [facility]; Protocol Stop: 06/01/18 20:59 Zolpidem Tartrate (Ambien) 5 mg PO HS PRN PRN Reason: Insomnia Stop: 05/30/18 02:39 Last Admin: 03/31/18 21:15 Dose: 5 mg
--- NOTE | 2018-04-03 16:45 | Internal Medicine Prog Note ---
Internal Medicine Objective - Results Result Diagrams: 03/30/18 00:25 03/30/18 00:25 Recent Labs: Laboratory Last Values WBC 12.9 Th/cmm (4.8-10.8) H 03/30/18 00:25 RBC 5.21 Mil/cmm (4.30-5.70) 03/30/18 00:25 Hgb 15.2 gm/dL (12-16) 03/30/18 00:25 Hct 45.8 % (41.0-60) 03/30/18 00:25 MCV 87.9 fl (80-99) 03/30/18 00:25 MCH 29.2 pg (26.0-30.0) 03/30/18 00:25 MCHC Differential 33.2 pg (28.0-36.0) 03/30/18 00:25 RDW 14.9 % (11.5-20.0) 03/30/18 00:25 Plt Count 271 Th/cmm (150-400) 03/30/18 00:25 MPV 7.9 fl 03/30/18 00:25 Neutrophils % 57.0 % (40.0-80.0) 03/30/18 00:25 Lymphocytes % 31.5 % (20.0-50.0) 03/30/18 00:25 Monocytes % 4.8 % (2.0-10.0) 03/30/18 00:25 Eosinophils % 2.1 % (0.0-5.0) 03/30/18 00:25 Basophils % 4.6 % (0.0-2.0) H 03/30/18 00:25 Sodium 133 mEq/L (136-145) L 03/30/18 00:25 Potassium 3.6 mEq/L (3.5-5.1) 03/30/18 00:25 Chloride 101 mEq/L (98-107) 03/30/18 00:25 Carbon Dioxide 23.9 mEq/L (21.0-31.0) 03/30/18 00:25 Anion Gap 11.7 (7.0-16.0) 03/30/18 00:25 BUN 12 mg/dL (7-25) 03/30/18 00:25 Creatinine 1.1 mg/dL (0.7-1.3) 03/30/18 00:25 Est GFR ( Amer) > 60.0 ml/min (>90) 03/30/18 00:25 Est GFR (Non-Af Amer) > 60.0 ml/min 03/30/18 00:25 BUN/Creatinine Ratio 10.9 03/30/18 00:25 Glucose 96 mg/dL (70-105) 03/30/18 00:25 Hemoglobin A1c % 5.7 % (4.0-6.0) 03/30/18 00:25 Calcium 10.0 mg/dL (8.6-10.3) 03/30/18 00:25 Total Bilirubin 0.4 mg/dL (0.3-1.0) 03/30/18 00:25 AST 34 U/L (13-39) 03/30/18 00:25 ALT 17 U/L (7-52) 03/30/18 00:25 Alkaline Phosphatase 77 U/L (34-104) 03/30/18 00:25 Total Protein 7.6 gm/dL (6.0-8.3) 03/30/18 00:25 Albumin 4.4 gm/dL (4.2-5.5) 03/30/18 00:25 Globulin 3.2 gm/dL 03/30/18 00:25 Albumin/Globulin Ratio 1.4 (1.0-1.8) 03/30/18 00:25 Triglycerides 88 mg/dL (<150) 03/30/18 00:25 Cholesterol 147 mg/dL (<200) 03/30/18 00:25 LDL Cholesterol Direct 87 mg/dL (75-193) 03/30/18 00:25 HDL Cholesterol 48 mg/dL (23-92) 03/30/18 00:25 TSH 2.52 uIU/ml (0.34-5.60) 03/30/18 00:25 Urine Source CLEAN C 03/31/18 00:10 Urine Color YELLOW 03/31/18 00:10 Urine Clarity CLEAR (CLEAR) 03/31/18 00:10 Urine pH 5.5 (4.6 - 8.0) 03/31/18 00:10 Ur Specific [place] <= 1.005 (1.005-1.030) 03/31/18 00:10 Urine Protein NEGATIVE mg/dL (NEGATIVE) 03/31/18 00:10 Urine Glucose (UA) NEGATIVE mg/dL (NEGATIVE) 03/31/18 00:10 Urine Ketones NEGATIVE mg/dL (NEGATIVE) 03/31/18 00:10 Urine Blood NEGATIVE (NEGATIVE) 03/31/18 00:10 Urine Nitrate NEGATIVE (NEGATIVE) 03/31/18 00:10 Urine Bilirubin NEGATIVE (NEGATIVE) 03/31/18 00:10 Urine Urobilinogen 0.2 E.U./dL (0.2 - 1.0) 03/31/18 00:10 Ur Leukocyte Esterase NEGATIVE (NEGATIVE) 03/31/18 00:10 RPR NONREACTIVE (NONREACTIVE) 03/30/18 00:25 - Physical Exam Vitals and I&O: Vital Signs Temp 97.5 F 04/03/18 14:05 Pulse 104 04/03/18 14:05 Resp 18 04/03/18 14:05 BP 126/95 04/03/18 14:05 Pulse Ox 98 04/03/18 14:05 Intake & Output 04/02/18 04/03/18 04/03/18 18:59 06:59 18:59 Intake Total 2400 480 Balance 2400 480 Intake: Oral 2400 480 Other: # Voids 4 2 # Bowel Movements 1 Active Medications: Current Medications Acetaminophen (Tylenol) 650 mg PO Q4HR PRN PRN Reason: Mild Pain / Temp above 100 Stop: 05/30/18 04:20 Docusate Sodium (Colace) 100 mg PO BID [facility] Stop: 05/30/18 08:59 Last Admin: 04/03/18 16:20 Dose: 100 mg Lorazepam (Ativan) 0.5 mg PO Q4HR PRN; Protocol PRN Reason: Anxiety Stop: 04/30/18 02:39 Last Admin: 04/03/18 08:36 Dose: 0.5 mg Magnesium Hydroxide (Milk Of Magnesia) 30 ml PO HS PRN PRN Reason: Constipation Stop: 05/30/18 04:20 Metoprolol Tartrate (Lopressor) 12.5 mg PO BID [facility] Stop: 05/30/18 08:59 Last Admin: 04/03/18 16:21 Dose: Not Given Quetiapine Fumarate (Seroquel) 50 mg PO BID [facility]; Protocol Stop: 05/30/18 08:59 Last Admin: 04/03/18 16:21 Dose: 50 mg Quetiapine Fumarate (Seroquel) 400 mg PO HS [facility]; Protocol Stop: 06/01/18 20:59 Last Admin: 04/02/18 20:04 Dose: 400 mg Quetiapine Fumarate (Seroquel) 100 mg PO HS [facility] Stop: 06/01/18 20:59 Last Admin: 04/02/18 20:04 Dose: 100 mg Zolpidem Tartrate (Ambien) 5 mg PO HS PRN PRN Reason: Insomnia Stop: 05/30/18 02:39 Last Admin: 04/02/18 20:04 Dose: 5 mg
--- NOTE | 2018-04-03 21:37 | Progress Notes ---
DATE: 04/03/2018 SUBJECTIVE: Case was discussed with staff of the patient, reviewed records. This is a 57-year-old male who is a well-known case to me as I have seen him at [facility] twice, so far. The patient was referred from [facility] because of increasing agitation and aggressive behavior, irritability, has been talking to himself, unable to follow direction. The patient diagnosed schizoaffective disorder. The patient was seen by Dr. Clements at the beginning and then transferred to me, because I have been seeing him at [facility]. He is on Seroquel 50 mg twice a day and 400 mg at bedtime that was increased yesterday 500 mg at bedtime, increased yesterday by Dr. Herr. He is compliant with the medication with no side effects, no sedation, no nausea, and no extrapyramidal symptoms. He continues to look disheveled, disorganized, internally preoccupied, and delusional. We will continue with outpatient in group therapy and adjust medications as needed. JOB# [id number]
--- NOTE | 2018-04-04 20:37 | Progress Notes ---
DATE: 04/04/2018 Case was discussed with staff of the patient, reviewed records. The patient continues to be psychotic, irritable, easily agitated. Continues to have poor insight. Continues to be unable to make safe plan for self-care, looking disheveled, disorganized, internally preoccupied, needing redirection. I will be increasing his Seroquel to 75 mg twice a day. He is already on 500 mg at bedtime and so far no side effects, no sedation, no nausea, no extrapyramidal symptoms. His lab work showed a high white cell count 12.9 and high basophil 4.6. Chemistry panel within normal range. TSH within normal range. Urinalysis within normal range. RPR nonreactive. We will continue to work with the patient in group therapy, milieu therapy, adjust the medication as needed. JOB# [id number]
--- NOTE | 2018-04-05 12:30 | Progress Notes ---
DATE: 04/05/2018 Case was discussed with staff of the patient. The patient has been very agitated, intrusive. Continues to have poor insight. Continues to be unable to make safe plan for self-care. Continues to be unpredictable, impulsive, needing redirection. I did increase Seroquel dose yesterday to 75 mg twice a day with no side effects, no sedation, no nausea. He is allergic to EGGS. I will be adding Depakote to his medication to help with his extreme agitation, out of control behavior. Discussed side effects and we will continue ____ patient in group therapy, milieu therapy, adjust medication as needed. JOB# [id number]
--- NOTE | 2018-04-05 21:15 | General Progress Note ---
Subjective - Review of Systems Service Date: 04/05/18 Subjective: awake, some confusion Objective - Results Result Diagrams: 03/30/18 00:25 03/30/18 00:25 Recent Labs: Laboratory Last Values WBC 12.9 Th/cmm (4.8-10.8) H 03/30/18 00:25 RBC 5.21 Mil/cmm (4.30-5.70) 03/30/18 00:25 Hgb 15.2 gm/dL (12-16) 03/30/18 00:25 Hct 45.8 % (41.0-60) 03/30/18 00:25 MCV 87.9 fl (80-99) 03/30/18 00:25 MCH 29.2 pg (26.0-30.0) 03/30/18 00:25 MCHC Differential 33.2 pg (28.0-36.0) 03/30/18 00:25 RDW 14.9 % (11.5-20.0) 03/30/18 00:25 Plt Count 271 Th/cmm (150-400) 03/30/18 00:25 MPV 7.9 fl 03/30/18 00:25 Neutrophils % 57.0 % (40.0-80.0) 03/30/18 00:25 Lymphocytes % 31.5 % (20.0-50.0) 03/30/18 00:25 Monocytes % 4.8 % (2.0-10.0) 03/30/18 00:25 Eosinophils % 2.1 % (0.0-5.0) 03/30/18 00:25 Basophils % 4.6 % (0.0-2.0) H 03/30/18 00:25 Sodium 133 mEq/L (136-145) L 03/30/18 00:25 Potassium 3.6 mEq/L (3.5-5.1) 03/30/18 00:25 Chloride 101 mEq/L (98-107) 03/30/18 00:25 Carbon Dioxide 23.9 mEq/L (21.0-31.0) 03/30/18 00:25 Anion Gap 11.7 (7.0-16.0) 03/30/18 00:25 BUN 12 mg/dL (7-25) 03/30/18 00:25 Creatinine 1.1 mg/dL (0.7-1.3) 03/30/18 00:25 Est GFR ( Amer) > 60.0 ml/min (>90) 03/30/18 00:25 Est GFR (Non-Af Amer) > 60.0 ml/min 03/30/18 00:25 BUN/Creatinine Ratio 10.9 03/30/18 00:25 Glucose 96 mg/dL (70-105) 03/30/18 00:25 Hemoglobin A1c % 5.7 % (4.0-6.0) 03/30/18 00:25 Calcium 10.0 mg/dL (8.6-10.3) 03/30/18 00:25 Total Bilirubin 0.4 mg/dL (0.3-1.0) 03/30/18 00:25 AST 34 U/L (13-39) 03/30/18 00:25 ALT 17 U/L (7-52) 03/30/18 00:25 Alkaline Phosphatase 77 U/L (34-104) 03/30/18 00:25 Total Protein 7.6 gm/dL (6.0-8.3) 03/30/18 00:25 Albumin 4.4 gm/dL (4.2-5.5) 03/30/18 00:25 Globulin 3.2 gm/dL 03/30/18 00:25 Albumin/Globulin Ratio 1.4 (1.0-1.8) 03/30/18 00:25 Triglycerides 88 mg/dL (<150) 03/30/18 00:25 Cholesterol 147 mg/dL (<200) 03/30/18 00:25 LDL Cholesterol Direct 87 mg/dL (75-193) 03/30/18 00:25 HDL Cholesterol 48 mg/dL (23-92) 03/30/18 00:25 TSH 2.52 uIU/ml (0.34-5.60) 03/30/18 00:25 Urine Source CLEAN C 03/31/18 00:10 Urine Color YELLOW 03/31/18 00:10 Urine Clarity CLEAR (CLEAR) 03/31/18 00:10 Urine pH 5.5 (4.6 - 8.0) 03/31/18 00:10 Ur Specific [place] <= 1.005 (1.005-1.030) 03/31/18 00:10 Urine Protein NEGATIVE mg/dL (NEGATIVE) 03/31/18 00:10 Urine Glucose (UA) NEGATIVE mg/dL (NEGATIVE) 03/31/18 00:10 Urine Ketones NEGATIVE mg/dL (NEGATIVE) 03/31/18 00:10 Urine Blood NEGATIVE (NEGATIVE) 03/31/18 00:10 Urine Nitrate NEGATIVE (NEGATIVE) 03/31/18 00:10 Urine Bilirubin NEGATIVE (NEGATIVE) 03/31/18 00:10 Urine Urobilinogen 0.2 E.U./dL (0.2 - 1.0) 03/31/18 00:10 Ur Leukocyte Esterase NEGATIVE (NEGATIVE) 03/31/18 00:10 RPR NONREACTIVE (NONREACTIVE) 03/30/18 00:25 - Physical Exam Vitals and I&O: Vital Signs Temp 97.9 F 04/04/18 21:20 Pulse 84 04/05/18 16:47 Resp 20 04/05/18 16:47 BP 123/83 04/05/18 16:47 Pulse Ox 98 04/04/18 21:20 Active Medications: Current Medications Acetaminophen (Tylenol) 650 mg PO Q4HR PRN PRN Reason: Mild Pain / Temp above 100 Stop: 05/30/18 04:20 Divalproex Sodium (Depakote Dr) 250 mg PO Q8HR [facility]; Protocol Stop: 06/04/18 12:59 Last Admin: 04/05/18 13:23 Dose: 250 mg Docusate Sodium (Colace) 100 mg PO BID [facility] Stop: 05/30/18 08:59 Last Admin: 04/05/18 16:41 Dose: 100 mg Lorazepam (Ativan) 0.5 mg PO Q4HR PRN; Protocol PRN Reason: Anxiety Stop: 04/30/18 02:39 Last Admin: 04/05/18 14:32 Dose: 0.5 mg Magnesium Hydroxide (Milk Of Magnesia) 30 ml PO HS PRN PRN Reason: Constipation Stop: 05/30/18 04:20 Metoprolol Tartrate (Lopressor) 12.5 mg PO BID [facility] Stop: 05/30/18 08:59 Last Admin: 04/05/18 16:38 Dose: 12.5 mg Quetiapine Fumarate (Seroquel) 400 mg PO HS [facility]; Protocol Stop: 06/01/18 20:59 Last Admin: 08/28/18 20:47 Dose: 400 mg Quetiapine Fumarate (Seroquel) 100 mg PO HS [facility] Stop: 06/01/18 20:59 Last Admin: 04/04/18 20:47 Dose: 100 mg Quetiapine Fumarate (Seroquel) 75 mg PO BID [facility]; Protocol Stop: 06/03/18 16:59 Last Admin: 04/05/18 16:28 Dose: 75 mg Zolpidem Tartrate (Ambien) 5 mg PO HS PRN PRN Reason: Insomnia Stop: 05/30/18 02:39 Last Admin: 04/04/18 20:47 Dose: 5 mg Nutritional Asmnt/Malnutr-PDOC - Dietary Evaluation Malnutrition Findings (Please click <Entered> for more info): Nutritional Asmnt/Malnutrition Start: 04/04/18 14: 15 Text: Status: Complete Freq: Protocol: Document 04/04/18 14:15 [email or web address] (Rec: 04/04/18 14:28 [id number] [id number]) Nutritional Asmnt/Malnutrition Patient General Information Nutritional Screening Moderate Risk Diagnosis psychosis NOS Pertinent Medical Hx/Surgical Hx HTn, acute renal failure, schizophrenia Subjective Information Pt seen eating in bed at time of visit, consumed 100% of lunch. Per EMR, PO intake 100% of meals. Current Diet Order/ Nutrition Support renal AIXA 80gm Pertinent Medications colace, seroquel Pertinent Labs 03/30 Na 133, glucose 96, A1c 5 .7 Nutritional Hx/Data Height 1.65 m Height (Calculated Centimeters) 165.1 Current Weight (lbs) 65.771 kg Weight (Calculated Kilograms) 65.8 Weight (Calculated Grams) 18868.9 [place] Body Weight 136 Body Mass Index (BMI) 24.1 Weight Status Approriate GI Symptoms GI Symptoms None Last BM 04/02 Difficult in: None Skin Integrity/Comment: intact Current %PO Good (75-100%) Estimated Nutritional Goals BEE in Kcals: Using Current wt Calories/Kcals/Kg 25-30 Kcals Calculated 3868-0669 Protein: Using Current wt Protein g/k Protein Calculated 66 Fluid: ml 1650-1980ml (1ml/kcal) Nutritional Problem No current Nutrition Prob Problem N/A Malnutrition Alert Is there a minimum of two criteria No selected? Query Text:Check all the applicable criteria. A minimum of two criteria are recommended for diagnosis of either severe or non-severe malnutrition. Malnutrition Related to Morbid Obesity Malnutrition related to morbid obesity No Intervention/Recommendation Comments 1. Recommend removing renal diet as renal labs WNL and no hx of CKD. RN notified. 2. Monitor PO intake, wt, labs and skin integrity 3. F/U as low risk in 7 days, 04/11 Expected Outcomes/Goals Expected Outcomes/Goals 1. PO intake to meet at least 75% of nutritional needs. 2. Wt stability, skin to remain intact, labs to approach WNL.
--- NOTE | 2018-04-06 11:12 | General Progress Note ---
Subjective - Review of Systems Events since last encounter: patient unpredictable impulsive Subjective: awake, some confusion Objective - Results Result Diagrams: 03/30/18 00:25 03/30/18 00:25 Recent Labs: Laboratory Last Values WBC 12.9 Th/cmm (4.8-10.8) H 03/30/18 00:25 RBC 5.21 Mil/cmm (4.30-5.70) 03/30/18 00:25 Hgb 15.2 gm/dL (12-16) 03/30/18 00:25 Hct 45.8 % (41.0-60) 03/30/18 00:25 MCV 87.9 fl (80-99) 03/30/18 00:25 MCH 29.2 pg (26.0-30.0) 03/30/18 00:25 MCHC Differential 33.2 pg (28.0-36.0) 03/30/18 00:25 RDW 14.9 % (11.5-20.0) 03/30/18 00:25 Plt Count 271 Th/cmm (150-400) 03/30/18 00:25 MPV 7.9 fl 03/30/18 00:25 Neutrophils % 57.0 % (40.0-80.0) 03/30/18 00:25 Lymphocytes % 31.5 % (20.0-50.0) 03/30/18 00:25 Monocytes % 4.8 % (2.0-10.0) 03/30/18 00:25 Eosinophils % 2.1 % (0.0-5.0) 03/30/18 00:25 Basophils % 4.6 % (0.0-2.0) H 03/30/18 00:25 Sodium 133 mEq/L (136-145) L 03/30/18 00:25 Potassium 3.6 mEq/L (3.5-5.1) 03/30/18 00:25 Chloride 101 mEq/L (98-107) 03/30/18 00:25 Carbon Dioxide 23.9 mEq/L (21.0-31.0) 03/30/18 00:25 Anion Gap 11.7 (7.0-16.0) 03/30/18 00:25 BUN 12 mg/dL (7-25) 03/30/18 00:25 Creatinine 1.1 mg/dL (0.7-1.3) 03/30/18 00:25 Est GFR ( Amer) > 60.0 ml/min (>90) 03/30/18 00:25 Est GFR (Non-Af Amer) > 60.0 ml/min 03/30/18 00:25 BUN/Creatinine Ratio 10.9 03/30/18 00:25 Glucose 96 mg/dL (70-105) 03/30/18 00:25 Hemoglobin A1c % 5.7 % (4.0-6.0) 03/30/18 00:25 Calcium 10.0 mg/dL (8.6-10.3) 03/30/18 00:25 Total Bilirubin 0.4 mg/dL (0.3-1.0) 03/30/18 00:25 AST 34 U/L (13-39) 03/30/18 00:25 ALT 17 U/L (7-52) 03/30/18 00:25 Alkaline Phosphatase 77 U/L (34-104) 03/30/18 00:25 Total Protein 7.6 gm/dL (6.0-8.3) 03/30/18 00:25 Albumin 4.4 gm/dL (4.2-5.5) 03/30/18 00:25 Globulin 3.2 gm/dL 03/30/18 00:25 Albumin/Globulin Ratio 1.4 (1.0-1.8) 03/30/18 00:25 Triglycerides 88 mg/dL (<150) 03/30/18 00:25 Cholesterol 147 mg/dL (<200) 03/30/18 00:25 LDL Cholesterol Direct 87 mg/dL (75-193) 03/30/18 00:25 HDL Cholesterol 48 mg/dL (23-92) 03/30/18 00:25 TSH 2.52 uIU/ml (0.34-5.60) 03/30/18 00:25 Urine Source CLEAN C 03/31/18 00:10 Urine Color YELLOW 03/31/18 00:10 Urine Clarity CLEAR (CLEAR) 03/31/18 00:10 Urine pH 5.5 (4.6 - 8.0) 03/31/18 00:10 Ur Specific [place] <= 1.005 (1.005-1.030) 03/31/18 00:10 Urine Protein NEGATIVE mg/dL (NEGATIVE) 03/31/18 00:10 Urine Glucose (UA) NEGATIVE mg/dL (NEGATIVE) 03/31/18 00:10 Urine Ketones NEGATIVE mg/dL (NEGATIVE) 03/31/18 00:10 Urine Blood NEGATIVE (NEGATIVE) 03/31/18 00:10 Urine Nitrate NEGATIVE (NEGATIVE) 03/31/18 00:10 Urine Bilirubin NEGATIVE (NEGATIVE) 03/31/18 00:10 Urine Urobilinogen 0.2 E.U./dL (0.2 - 1.0) 03/31/18 00:10 Ur Leukocyte Esterase NEGATIVE (NEGATIVE) 03/31/18 00:10 RPR NONREACTIVE (NONREACTIVE) 03/30/18 00:25 - Physical Exam Vitals and I&O: Vital Signs Temp 97.9 F 04/04/18 21:20 Pulse 78 04/06/18 08:51 Resp 20 04/05/18 16:47 BP 137/81 04/06/18 08:51 Pulse Ox 98 04/04/18 21:20 Active Medications: Current Medications Acetaminophen (Tylenol) 650 mg PO Q4HR PRN PRN Reason: Mild Pain / Temp above 100 Stop: 05/30/18 04:20 Divalproex Sodium (Depakote Dr) 250 mg PO Q8HR TIM[facility]; Protocol Stop: 06/04/18 12:59 Last Admin: 04/06/18 06:30 Dose: Not Given Docusate Sodium (Colace) 100 mg PO BID TIMBO Stop: 05/30/18 08:59 Last Admin: 04/06/18 08:51 Dose: 100 mg Lorazepam (Ativan) 0.5 mg PO Q4HR PRN; Protocol PRN Reason: Anxiety Stop: 04/30/18 02:39 Last Admin: 04/05/18 14:32 Dose: 0.5 mg Magnesium Hydroxide (Milk Of Magnesia) 30 ml PO HS PRN PRN Reason: Constipation Stop: 05/30/18 04:20 Metoprolol Tartrate (Lopressor) 12.5 mg PO BID TIMBO Stop: 05/30/18 08:59 Last Admin: 04/06/18 08:51 Dose: 12.5 mg Quetiapine Fumarate (Seroquel) 400 mg PO HS TIMBO; Protocol Stop: 06/01/18 20:59 Last Admin: 08/29/18 21:21 Dose: 400 mg Quetiapine Fumarate (Seroquel) 100 mg PO HS TIMBO Stop: 06/01/18 20:59 Last Admin: 04/05/18 21:21 Dose: 100 mg Quetiapine Fumarate (Seroquel) 75 mg PO BID TIMBO; Protocol Stop: 06/03/18 16:59 Last Admin: 04/06/18 08:54 Dose: 75 mg Zolpidem Tartrate (Ambien) 5 mg PO HS PRN PRN Reason: Insomnia Stop: 05/30/18 02:39 Last Admin: 04/05/18 21:22 Dose: 5 mg Nutritional Asmnt/Malnutr-PDOC - Dietary Evaluation Malnutrition Findings (Please click <Entered> for more info): Nutritional Asmnt/Malnutrition Start: 04/04/18 14: 15 Text: Status: Complete Freq: Protocol: Document 04/04/18 14:15 LCHENG (Rec: 04/04/18 14:28 [email or web address]) Nutritional Asmnt/Malnutrition Patient General Information Nutritional Screening Moderate Risk Diagnosis psychosis NOS Pertinent Medical Hx/Surgical Hx HTn, acute renal failure, schizophrenia Subjective Information Pt seen eating in bed at time of visit, consumed 100% of lunch. Per EMR, PO intake 100% of meals. Current Diet Order/ Nutrition Support renal AIXA 80gm Pertinent Medications colace, seroquel Pertinent Labs 03/30 Na 133, glucose 96, A1c 5 .7 Nutritional Hx/Data Height 1.65 m Height (Calculated Centimeters) 165.1 Current Weight (lbs) 65.771 kg Weight (Calculated Kilograms) 65.8 Weight (Calculated Grams) 92002.9 [place] Body Weight 136 Body Mass Index (BMI) 24.1 Weight Status Approriate GI Symptoms GI Symptoms None Last BM 04/02 Difficult in: None Skin Integrity/Comment: intact Current %PO Good (75-100%) Estimated Nutritional Goals BEE in Kcals: Using Current wt Calories/Kcals/Kg 25-30 Kcals Calculated 5714-3249 Protein: Using Current wt Protein g/k Protein Calculated 66 Fluid: ml 1650-1980ml (1ml/kcal) Nutritional Problem No current Nutrition Prob Problem N/A Malnutrition Alert Is there a minimum of two criteria No selected? Query Text:Check all the applicable criteria. A minimum of two criteria are recommended for diagnosis of either severe or non-severe malnutrition. Malnutrition Related to Morbid Obesity Malnutrition related to morbid obesity No Intervention/Recommendation Comments 1. Recommend removing renal diet as renal labs WNL and no hx of CKD. RN notified. 2. Monitor PO intake, wt, labs and skin integrity 3. F/U as low risk in 7 days, 04/11 Expected Outcomes/Goals Expected Outcomes/Goals 1. PO intake to meet at least 75% of nutritional needs. 2. Wt stability, skin to remain intact, labs to approach WNL.
[2018-04-06] MEDS ORDERED: Haloperidol Lactate 5 mg/mL 1mL Vial ONE (12:20)
[2018-04-06] MEDS ORDERED: Haloperidol Lactate 5 mg/mL 1mL Vial IM ONE (12:27)
--- NOTE | 2018-04-06 14:43 | Progress Notes ---
DATE: 04/05/2018 Case was discussed with staff of the patient and reviewed records. ____ the patient yesterday. The patient continues to be loud, irritable. Continues to have poor insight. Continues to be unable to make safe plan for self-care, very intrusive, needing redirection. Continues to be unpredictable and impulsive. Aggressive. No side effects with the medication. No sedation or nausea. No extrapyramidal symptoms. We will continue to work with the patient in group therapy, milieu therapy, adjust medication as needed. JOB# [id number]
--- NOTE | 2018-04-07 12:06 | Internal Medicine Prog Note ---
Internal Medicine Subjective - Subjective Service Date: 04/07/18 Patient seen and examined:: with staff Patient is:: awake Per staff patient has:: tolerating meds Internal Medicine Objective - Results Result Diagrams: 03/30/18 00:25 03/30/18 00:25 Recent Labs: Laboratory Last Values WBC 12.9 Th/cmm (4.8-10.8) H 03/30/18 00:25 RBC 5.21 Mil/cmm (4.30-5.70) 03/30/18 00:25 Hgb 15.2 gm/dL (12-16) 03/30/18 00:25 Hct 45.8 % (41.0-60) 03/30/18 00:25 MCV 87.9 fl (80-99) 03/30/18 00:25 MCH 29.2 pg (26.0-30.0) 03/30/18 00:25 MCHC Differential 33.2 pg (28.0-36.0) 03/30/18 00:25 RDW 14.9 % (11.5-20.0) 03/30/18 00:25 Plt Count 271 Th/cmm (150-400) 03/30/18 00:25 MPV 7.9 fl 03/30/18 00:25 Neutrophils % 57.0 % (40.0-80.0) 03/30/18 00:25 Lymphocytes % 31.5 % (20.0-50.0) 03/30/18 00:25 Monocytes % 4.8 % (2.0-10.0) 03/30/18 00:25 Eosinophils % 2.1 % (0.0-5.0) 03/30/18 00:25 Basophils % 4.6 % (0.0-2.0) H 03/30/18 00:25 Sodium 133 mEq/L (136-145) L 03/30/18 00:25 Potassium 3.6 mEq/L (3.5-5.1) 03/30/18 00:25 Chloride 101 mEq/L (98-107) 03/30/18 00:25 Carbon Dioxide 23.9 mEq/L (21.0-31.0) 03/30/18 00:25 Anion Gap 11.7 (7.0-16.0) 03/30/18 00:25 BUN 12 mg/dL (7-25) 03/30/18 00:25 Creatinine 1.1 mg/dL (0.7-1.3) 03/30/18 00:25 Est GFR ( Amer) > 60.0 ml/min (>90) 03/30/18 00:25 Est GFR (Non-Af Amer) > 60.0 ml/min 03/30/18 00:25 BUN/Creatinine Ratio 10.9 03/30/18 00:25 Glucose 96 mg/dL (70-105) 03/30/18 00:25 Hemoglobin A1c % 5.7 % (4.0-6.0) 03/30/18 00:25 Calcium 10.0 mg/dL (8.6-10.3) 03/30/18:25 Total Bilirubin 0.4 mg/dL (0.3-1.0) 03/30/18 00:25 AST 34 U/L (13-39) 03/30/18 00:25 ALT 17 U/L (7-52) 03/30/18 00:25 Alkaline Phosphatase 77 U/L (34-104) 03/30/18 00:25 Total Protein 7.6 gm/dL (6.0-8.3) 03/30/18 00:25 Albumin 4.4 gm/dL (4.2-5.5) 03/30/18 00:25 Globulin 3.2 gm/dL 03/30/18 00:25 Albumin/Globulin Ratio 1.4 (1.0-1.8) 03/30/18 00:25 Triglycerides 88 mg/dL (<150) 03/30/18 00:25 Cholesterol 147 mg/dL (<200) 03/30/18 00:25 LDL Cholesterol Direct 87 mg/dL (75-193) 03/30/18 00:25 HDL Cholesterol 48 mg/dL (23-92) 03/30/18 00:25 TSH 2.52 uIU/ml (0.34-5.60) 03/30/18 00:25 Urine Source CLEAN C 03/31/18 00:10 Urine Color YELLOW 03/31/18 00:10 Urine Clarity CLEAR (CLEAR) 03/31/18 00:10 Urine pH 5.5 (4.6 - 8.0) 03/31/18 00:10 Ur Specific [place] <= 1.005 (1.005-1.030) 03/31/18 00:10 Urine Protein NEGATIVE mg/dL (NEGATIVE) 03/31/18 00:10 Urine Glucose (UA) NEGATIVE mg/dL (NEGATIVE) 03/31/18 00:10 Urine Ketones NEGATIVE mg/dL (NEGATIVE) 03/31/18 00:10 Urine Blood NEGATIVE (NEGATIVE) 03/31/18 00:10 Urine Nitrate NEGATIVE (NEGATIVE) 03/31/18 00:10 Urine Bilirubin NEGATIVE (NEGATIVE) 03/31/18 00:10 Urine Urobilinogen 0.2 E.U./dL (0.2 - 1.0) 03/31/18 00:10 Ur Leukocyte Esterase NEGATIVE (NEGATIVE) 03/31/18 00:10 RPR NONREACTIVE (NONREACTIVE) 03/30/18 00:25 - Physical Exam Vitals and I&O: Vital Signs Temp 98.1 F 04/07/18 04:26 Pulse 79 04/07/18 08:50 Resp 18 04/07/18 04:26 BP 136/79 04/07/18 08:50 Pulse Ox 95 04/07/18 04:26 Intake & Output 04/06/18 04/07/18 04/07/18 18:59 06:59 18:59 Intake Total 480 Balance 480 Intake: Oral 480 Other: # Voids 2 2 # Bowel Movements 0 Active Medications: Current Medications Acetaminophen (Tylenol) 650 mg PO Q4HR PRN PRN Reason: Mild Pain / Temp above 100 Stop: 05/30/18 04:20 Divalproex Sodium (Depakote Dr) 250 mg PO Q8HR [facility]; Protocol Stop: 06/04/18 12:59 Last Admin: 04/07/18 05:56 Dose: 250 mg Docusate Sodium (Colace) 100 mg PO BID TIMBO Stop: 05/30/18 08:59 Last Admin: 04/07/18 08:50 Dose: 100 mg Lorazepam (Ativan) 0.5 mg PO Q4HR PRN; Protocol PRN Reason: Anxiety Stop: 04/30/18 02:39 Last Admin: 04/05/18 14:32 Dose: 0.5 mg Magnesium Hydroxide (Milk Of Magnesia) 30 ml PO HS PRN PRN Reason: Constipation Stop: 05/30/18 04:20 Metoprolol Tartrate (Lopressor) 12.5 mg PO BID TIMBO Stop: 05/30/18 08:59 Last Admin: 04/07/18 08:50 Dose: 12.5 mg Quetiapine Fumarate (Seroquel) 400 mg PO HS TIMBO; Protocol Stop: 06/01/18 20:59 Last Admin: 04/06/18 20:43 Dose: 400 mg Quetiapine Fumarate (Seroquel) 100 mg PO HS TIMBO Stop: 06/01/18 20:59 Last Admin: 04/06/18 20:43 Dose: 100 mg Quetiapine Fumarate (Seroquel) 100 mg PO BID TIMBO; Protocol Stop: 06/05/18 16:59 Last Admin: 04/07/18 08:52 Dose: 100 mg Zolpidem Tartrate (Ambien) 5 mg PO HS PRN PRN Reason: Insomnia Stop: 05/30/18 02:39 Last Admin: 04/05/18 21:22 Dose: 5 mg General: alert HEENT: NC/AT, PERRLA Lungs: CTAB Cardiovascular: RRR, without murmur Abdomen: soft, non-tender, non-distended, positive bowel sound Internal Medicine Assmt/Plan - Assessment Assessment: agitation htn hx arf schizophrenia - Plan Plan: cpm Nutritional Asmnt/Malnutr-PDOC - Dietary Evaluation Malnutrition Findings (Please click <Entered> for more info): Nutritional Asmnt/Malnutrition Start: 04/04/18 14: 15 Text: Status: Complete Freq: Protocol: Document 04/04/18 14:15 LCHENG (Rec: 04/04/18 14:28 [email or web address]) Nutritional Asmnt/Malnutrition Patient General Information Nutritional Screening Moderate Risk Diagnosis psychosis NOS Pertinent Medical Hx/Surgical Hx HTn, acute renal failure, schizophrenia Subjective Information Pt seen eating in bed at time of visit, consumed 100% of lunch. Per EMR, PO intake 100% of meals. Current Diet Order/ Nutrition Support renal AIXA 80gm Pertinent Medications colace, seroquel Pertinent Labs 03/30 Na 133, glucose 96, A1c 5 .7 Nutritional Hx/Data Height 5 ft 5 in Height (Calculated Centimeters) 165.1 Current Weight (lbs) 145 lb Weight (Calculated Kilograms) 65.8 Weight (Calculated Grams) 96432.9 [place] Body Weight 136 Body Mass Index (BMI) 24.1 Weight Status Approriate GI Symptoms GI Symptoms None Last BM 04/02 Difficult in: None Skin Integrity/Comment: intact Current %PO Good (75-100%) Estimated Nutritional Goals BEE in Kcals: Using Current wt Calories/Kcals/Kg 25-30 Kcals Calculated 2160-5070 Protein: Using Current wt Protein g/k Protein Calculated 66 Fluid: ml 1650-1980ml (1ml/kcal) Nutritional Problem No current Nutrition Prob Problem N/A Malnutrition Alert Is there a minimum of two criteria No selected? Query Text:Check all the applicable criteria. A minimum of two criteria are recommended for diagnosis of either severe or non-severe malnutrition. Malnutrition Related to Morbid Obesity Malnutrition related to morbid obesity No Intervention/Recommendation Comments 1. Recommend removing renal diet as renal labs WNL and no hx of CKD. RN notified. 2. Monitor PO intake, wt, labs and skin integrity 3. F/U as low risk in 7 days, 04/11 Expected Outcomes/Goals Expected Outcomes/Goals 1. PO intake to meet at least 75% of nutritional needs. 2. Wt stability, skin to remain intact, labs to approach WNL.
--- NOTE | 2018-04-07 23:28 | Progress Notes ---
DATE: 04/07/2018 SUBJECTIVE: Case was discussed with staff of the patient, reviewed records. The patient continues to be irritable, agitated, talking loud, intrusive. However, he seems to have calmed down since I did add Depakote. He is easier to redirect. I did increase Seroquel also to 100 mg twice a day and he is already on 500 mg at bedtime with no side effects, no sedation or nausea, no extrapyramidal symptoms and he continues to look disheveled, hard to redirect and we will continue to work with the patient in group therapy, milieu therapy, and adjust the medication as needed. JOB# [id number]
--- NOTE | 2018-04-08 18:36 | Progress Notes ---
DATE: 04/08/2018 SUBJECTIVE: The patient was seen at the dining area. The patient appears to be guarded, irritable and paranoid with some behavioral outbursts. Otherwise, the patient appears to be in no acute distress. OBJECTIVE: VITAL SIGNS: Temperature 98.3, heart rate 99, blood pressure 135/78, respirations of 18, 98% on room air. HEENT: Head is atraumatic and normocephalic. Eyes: Bilateral conjunctivae are clear. Bilateral pupils are equally round and reactive. NECK: Supple. No JVD. CARDIOVASCULAR: S1 and S2, without murmur. PULMONARY: Clear to auscultation. GASTROINTESTINAL: Soft and nontender without guarding. Positive bowel sounds. MUSCULOSKELETAL: No clubbing. No cyanosis noted. ASSESSMENT: 1. Schizoaffective disorder. 2. Hypertension. PLAN: We will keep the patient inpatient. We will follow up with the psychiatrist to monitor the patient's condition and behavior. Treatment plans were discussed with the patient's nurse. Treatment plans were discussed with Dr. Sol. JOB# [id number]
--- NOTE | 2018-04-08 20:54 | Progress Notes ---
DATE: 04/08/2018 SUBJECTIVE: The patient is paranoid, responding to internal stimuli, talking to himself, clearly psychotic, holding his hand to his ears, so he is holding a phone, talking to someone that is not there, remains impulsive, unpredictable, wandering back and forth, still with ongoing delusions, behaviors. ASSESSMENT: The patient remains symptomatic, ongoing psychotic symptoms. The patient currently on what appears to be 500 mg of Seroquel at nighttime and other 100 mg of Seroquel twice daily. He may benefit from a dosing of Haldol given days on 700 mg of Seroquel, remains still quite psychotic. PLAN: We will continue to monitor. We will initiate Haldol dosing to see if this helps with his current symptoms. We will monitor and follow up. The patient is not safe for discharge. [facility]# [id number]
--- NOTE | 2018-04-09 09:21 | General Progress Note ---
Subjective - Review of Systems Events since last encounter: patient is paranoid guarded, irritable Subjective: awake, some confusion Objective - Results Result Diagrams: 03/30/18 00:25 03/30/18 00:25 Recent Labs: Laboratory Last Values WBC 12.9 Th/cmm (4.8-10.8) H 03/30/18 00:25 RBC 5.21 Mil/cmm (4.30-5.70) 03/30/18 00:25 Hgb 15.2 gm/dL (12-16) 03/30/18 00:25 Hct 45.8 % (41.0-60) 03/30/18 00:25 MCV 87.9 fl (80-99) 03/30/18 00:25 MCH 29.2 pg (26.0-30.0) 03/30/18 00:25 MCHC Differential 33.2 pg (28.0-36.0) 03/30/18 00:25 RDW 14.9 % (11.5-20.0) 03/30/18 00:25 Plt Count 271 Th/cmm (150-400) 03/30/18 00:25 MPV 7.9 fl 03/30/18 00:25 Neutrophils % 57.0 % (40.0-80.0) 03/30/18 00:25 Lymphocytes % 31.5 % (20.0-50.0) 03/30/18 00:25 Monocytes % 4.8 % (2.0-10.0) 03/30/18 00:25 Eosinophils % 2.1 % (0.0-5.0) 03/30/18 00:25 Basophils % 4.6 % (0.0-2.0) H 03/30/18 00:25 Sodium 133 mEq/L (136-145) L 03/30/18 00:25 Potassium 3.6 mEq/L (3.5-5.1) 03/30/18 00:25 Chloride 101 mEq/L (98-107) 03/30/18 00:25 Carbon Dioxide 23.9 mEq/L (21.0-31.0) 03/30/18 00:25 Anion Gap 11.7 (7.0-16.0) 03/30/18 00:25 BUN 12 mg/dL (7-25) 03/30/18 00:25 Creatinine 1.1 mg/dL (0.7-1.3) 03/30/18 00:25 Est GFR ( Amer) > 60.0 ml/min (>90) 03/30/18 00:25 Est GFR (Non-Af Amer) > 60.0 ml/min 03/30/18 00:25 BUN/Creatinine Ratio 10.9 03/30/18 00:25 Glucose 96 mg/dL (70-105) 03/30/18 00:25 Hemoglobin A1c % 5.7 % (4.0-6.0) 03/30/18 00:25 Calcium 10.0 mg/dL (8.6-10.3) 03/30/18 00:25 Total Bilirubin 0.4 mg/dL (0.3-1.0) 03/30/18 00:25 AST 34 U/L (13-39) 03/30/18 00:25 ALT 17 U/L (7-52) 03/30/18 00:25 Alkaline Phosphatase 77 U/L (34-104) 03/30/18 00:25 Total Protein 7.6 gm/dL (6.0-8.3) 03/30/18 00:25 Albumin 4.4 gm/dL (4.2-5.5) 03/30/18 00:25 Globulin 3.2 gm/dL 03/30/18 00:25 Albumin/Globulin Ratio 1.4 (1.0-1.8) 03/30/18 00:25 Triglycerides 88 mg/dL (<150) 03/30/18 00:25 Cholesterol 147 mg/dL (<200) 03/30/18 00:25 LDL Cholesterol Direct 87 mg/dL (75-193) 03/30/18 00:25 HDL Cholesterol 48 mg/dL (23-92) 03/30/18 00:25 TSH 2.52 uIU/ml (0.34-5.60) 03/30/18 00:25 Urine Source CLEAN C 03/31/18 00:10 Urine Color YELLOW 03/31/18 00:10 Urine Clarity CLEAR (CLEAR) 03/31/18 00:10 Urine pH 5.5 (4.6 - 8.0) 03/31/18 00:10 Ur Specific [place] <= 1.005 (1.005-1.030) 03/31/18 00:10 Urine Protein NEGATIVE mg/dL (NEGATIVE) 03/31/18 00:10 Urine Glucose (UA) NEGATIVE mg/dL (NEGATIVE) 03/31/18 00:10 Urine Ketones NEGATIVE mg/dL (NEGATIVE) 03/31/18 00:10 Urine Blood NEGATIVE (NEGATIVE) 03/31/18 00:10 Urine Nitrate NEGATIVE (NEGATIVE) 03/31/18 00:10 Urine Bilirubin NEGATIVE (NEGATIVE) 03/31/18 00:10 Urine Urobilinogen 0.2 E.U./dL (0.2 - 1.0) 03/31/18 00:10 Ur Leukocyte Esterase NEGATIVE (NEGATIVE) 03/31/18 00:10 RPR NONREACTIVE (NONREACTIVE) 03/30/18 00:25 - Physical Exam Vitals and I&O: Vital Signs Temp 98.4 F 04/09/18 06:00 Pulse 90 04/09/18 06:00 Resp 19 04/09/18 06:00 BP 143/80 04/09/18 06:00 Pulse Ox 100 04/09/18 06:00 Intake & Output 04/08/18 04/09/18 04/09/18 18:59 06:59 18:59 Intake Total 500 Balance 500 Intake: Oral 500 Other: # Voids 5 # Bowel Movements 0 Active Medications: Current Medications Acetaminophen (Tylenol) 650 mg PO Q4HR PRN PRN Reason: Mild Pain / Temp above 100 Stop: 05/30/18 04:20 Divalproex Sodium (Depakote Dr) 250 mg PO Q8HR [facility]; Protocol Stop: 06/04/18 12:59 Last Admin: 04/09/18 05:48 Dose: 250 mg Docusate Sodium (Colace) 100 mg PO BID TIMBO Stop: 05/30/18 08:59 Last Admin: 04/08/18 16:30 Dose: 100 mg Haloperidol (Haldol) 2 mg PO BID [facility]; Protocol Stop: 06/07/18 08:59 Last Admin: 04/08/18 12:06 Dose: Not Given Lorazepam (Ativan) 0.5 mg PO Q4HR PRN; Protocol PRN Reason: Anxiety Stop: 04/30/18 02:39 Last Admin: 04/08/18 09:13 Dose: 0.5 mg Magnesium Hydroxide (Milk Of Magnesia) 30 ml PO HS PRN PRN Reason: Constipation Stop: 05/30/18 04:20 Metoprolol Tartrate (Lopressor) 12.5 mg PO BID TIMBO Stop: 05/30/18 08:59 Last Admin: 04/08/18 16:30 Dose: 12.5 mg Quetiapine Fumarate (Seroquel) 400 mg PO HS TIMBO; Protocol Stop: 06/01/18 20:59 Last Admin: 04/08/18 21:07 Dose: 400 mg Quetiapine Fumarate (Seroquel) 100 mg PO BID TIMBO; Protocol Stop: 06/05/18 16:59 Last Admin: 04/08/18 16:30 Dose: 100 mg Zolpidem Tartrate (Ambien) 5 mg PO HS PRN PRN Reason: Insomnia Stop: 05/30/18 02:39 Last Admin: 04/08/18 21:07 Dose: 5 mg General: No acute distress HEENT: Atraumatic Neck: Supple, JVD Cardiovascular: Regular rate, Normal S1, Normal S2 Lungs: Clear to auscultation Assessment/Plan - Problem List Patient Problems: All Active Problems HTN (hypertension) (Acute) I10 Schizophrenia (Acute) F20.9 - Plan Plan: as per psych will monitor Nutritional Asmnt/Malnutr-PDOC - Dietary Evaluation Malnutrition Findings (Please click <Entered> for more info): Nutritional Asmnt/Malnutrition Start: 04/04/18 14: 15 Text: Status: Complete Freq: Protocol: Document 04/04/18 14:15 LCHENG (Rec: 04/04/18 14:28 [email or web address]) Nutritional Asmnt/Malnutrition Patient General Information Nutritional Screening Moderate Risk Diagnosis psychosis NOS Pertinent Medical Hx/Surgical Hx HTn, acute renal failure, schizophrenia Subjective Information Pt seen eating in bed at time of visit, consumed 100% of lunch. Per EMR, PO intake 100% of meals. Current Diet Order/ Nutrition Support renal AIXA 80gm Pertinent Medications colace, seroquel Pertinent Labs 03/30 Na 133, glucose 96, A1c 5 .7 Nutritional Hx/Data Height 1.65 m Height (Calculated Centimeters) 165.1 Current Weight (lbs) 65.771 kg Weight (Calculated Kilograms) 65.8 Weight (Calculated Grams) 33774.9 [place] Body Weight 136 Body Mass Index (BMI) 24.1 Weight Status Approriate GI Symptoms GI Symptoms None Last BM 04/02 Difficult in: None Skin Integrity/Comment: intact Current %PO Good (75-100%) Estimated Nutritional Goals BEE in Kcals: Using Current wt Calories/Kcals/Kg 25-30 Kcals Calculated 0059-9008 Protein: Using Current wt Protein g/k Protein Calculated 66 Fluid: ml 1650-1980ml (1ml/kcal) Nutritional Problem No current Nutrition Prob Problem N/A Malnutrition Alert Is there a minimum of two criteria No selected? Query Text:Check all the applicable criteria. A minimum of two criteria are recommended for diagnosis of either severe or non-severe malnutrition. Malnutrition Related to Morbid Obesity Malnutrition related to morbid obesity No Intervention/Recommendation Comments 1. Recommend removing renal diet as renal labs WNL and no hx of CKD. RN notified. 2. Monitor PO intake, wt, labs and skin integrity 3. F/U as low risk in 7 days, 04/11 Expected Outcomes/Goals Expected Outcomes/Goals 1. PO intake to meet at least 75% of nutritional needs. 2. Wt stability, skin to remain intact, labs to approach WNL.
--- NOTE | 2018-04-09 22:41 | Progress Notes ---
DATE: 04/09/2018 SUBJECTIVE: The patient is psychotic, talking to himself, pacing back and forth, going to his room with disorganized behaviors and coming back. Psychomotorically accelerated holding his hand to his head as though he is holding a telephone talking to nobody, getting into fights with other patients, yelling at staff members, making nonsensical statements, intrusive, loud, actively psychotic, difficult to follow his thought processes. Medications were noted. ASSESSMENT: The patient is psychotic and unable to be cared for at a lower level of care given the extent of his psychotic symptoms. PLAN: We will continue to monitor, titrate and adjust medications. The patient is not safe for a lower level of care. [facility]# [id number]
--- NOTE | 2018-04-10 10:21 | General Progress Note ---
Subjective - Review of Systems Events since last encounter: patient still psychotic with no sings of pain Subjective: awake, some confusion Objective - Results Result Diagrams: 03/30/18 00:25 03/30/18 00:25 Recent Labs: Laboratory Last Values WBC 12.9 Th/cmm (4.8-10.8) H 03/30/18 00:25 RBC 5.21 Mil/cmm (4.30-5.70) 03/30/18 00:25 Hgb 15.2 gm/dL (12-16) 03/30/18 00:25 Hct 45.8 % (41.0-60) 03/30/18 00:25 MCV 87.9 fl (80-99) 03/30/18 00:25 MCH 29.2 pg (26.0-30.0) 03/30/18 00:25 MCHC Differential 33.2 pg (28.0-36.0) 03/30/18 00:25 RDW 14.9 % (11.5-20.0) 03/30/18:25 Plt Count 271 Th/cmm (150-400) 03/30/18 00:25 MPV 7.9 fl 03/30/18 00:25 Neutrophils % 57.0 % (40.0-80.0) 03/30/18 00:25 Lymphocytes % 31.5 % (20.0-50.0) 03/30/18 00:25 Monocytes % 4.8 % (2.0-10.0) 03/30/18 00:25 Eosinophils % 2.1 % (0.0-5.0) 03/30/18 00:25 Basophils % 4.6 % (0.0-2.0) H 03/30/18 00:25 Sodium 133 mEq/L (136-145) L 03/30/18 00:25 Potassium 3.6 mEq/L (3.5-5.1) 03/30/18 00:25 Chloride 101 mEq/L (98-107) 03/30/18 00:25 Carbon Dioxide 23.9 mEq/L (21.0-31.0) 03/30/18 00:25 Anion Gap 11.7 (7.0-16.0) 03/30/18 00:25 BUN 12 mg/dL (7-25) 03/30/18 00:25 Creatinine 1.1 mg/dL (0.7-1.3) 03/30/18 00:25 Est GFR ( Amer) > 60.0 ml/min (>90) 03/30/18 00:25 Est GFR (Non-Af Amer) > 60.0 ml/min 03/30/18 00:25 BUN/Creatinine Ratio 10.9 03/30/18 00:25 Glucose 96 mg/dL (70-105) 03/30/18 00:25 Hemoglobin A1c % 5.7 % (4.0-6.0) 03/30/18 00:25 Calcium 10.0 mg/dL (8.6-10.3) 03/30/18 00:25 Total Bilirubin 0.4 mg/dL (0.3-1.0) 03/30/18 00:25 AST 34 U/L (13-39) 03/30/18 00:25 ALT 17 U/L (7-52) 03/30/18 00:25 Alkaline Phosphatase 77 U/L (34-104) 03/30/18 00:25 Total Protein 7.6 gm/dL (6.0-8.3) 03/30/18 00:25 Albumin 4.4 gm/dL (4.2-5.5) 03/30/18 00:25 Globulin 3.2 gm/dL 03/30/18 00:25 Albumin/Globulin Ratio 1.4 (1.0-1.8) 03/30/18 00:25 Triglycerides 88 mg/dL (<150) 03/30/18 00:25 Cholesterol 147 mg/dL (<200) 03/30/18 00:25 LDL Cholesterol Direct 87 mg/dL (75-193) 03/30/18 00:25 HDL Cholesterol 48 mg/dL (23-92) 03/30/18 00:25 TSH 2.52 uIU/ml (0.34-5.60) 03/30/18 00:25 Urine Source CLEAN C 03/31/18 00:10 Urine Color YELLOW 03/31/18 00:10 Urine Clarity CLEAR (CLEAR) 03/31/18 00:10 Urine pH 5.5 (4.6 - 8.0) 03/31/18 00:10 Ur Specific [place] <= 1.005 (1.005-1.030) 03/31/18 00:10 Urine Protein NEGATIVE mg/dL (NEGATIVE) 03/31/18 00:10 Urine Glucose (UA) NEGATIVE mg/dL (NEGATIVE) 03/31/18 00:10 Urine Ketones NEGATIVE mg/dL (NEGATIVE) 03/31/18 00:10 Urine Blood NEGATIVE (NEGATIVE) 03/31/18 00:10 Urine Nitrate NEGATIVE (NEGATIVE) 03/31/18 00:10 Urine Bilirubin NEGATIVE (NEGATIVE) 03/31/18 00:10 Urine Urobilinogen 0.2 E.U./dL (0.2 - 1.0) 03/31/18 00:10 Ur Leukocyte Esterase NEGATIVE (NEGATIVE) 03/31/18 00:10 RPR NONREACTIVE (NONREACTIVE) 03/30/18 00:25 - Physical Exam Vitals and I&O: Vital Signs Temp 98.4 F 04/09/18 20:06 Pulse 85 04/10/18 08:31 Resp 20 04/09/18 20:06 BP 129/80 04/10/18 08:31 Pulse Ox 98 04/09/18 20:06 Intake & Output 04/09/18 04/10/18 04/10/18 18:59 06:59 18:59 Intake Total 1700 Balance 1700 Intake: Oral 1700 Other: # Voids 4 # Bowel Movements 0 Active Medications: Current Medications Acetaminophen (Tylenol) 650 mg PO Q4HR PRN PRN Reason: Mild Pain / Temp above 100 Stop: 05/30/18 04:20 Divalproex Sodium (Depakote Dr) 250 mg PO Q8HR [facility]; Protocol Stop: 06/04/18 12:59 Last Admin: 04/10/18 05:30 Dose: 250 mg Docusate Sodium (Colace) 100 mg PO BID [facility] Stop: 05/30/18 08:59 Last Admin: 04/10/18 08:31 Dose: 100 mg Haloperidol (Haldol) 2 mg PO BID [facility]; Protocol Stop: 06/07/18 08:59 Last Admin: 04/10/18 08:31 Dose: 2 mg Lorazepam (Ativan) 0.5 mg PO Q4HR PRN; Protocol PRN Reason: Anxiety Stop: 04/30/18 02:39 Last Admin: 04/09/18 20:44 Dose: 0.5 mg Magnesium Hydroxide (Milk Of Magnesia) 30 ml PO HS PRN PRN Reason: Constipation Stop: 05/30/18 04:20 Metoprolol Tartrate (Lopressor) 12.5 mg PO BID [facility] Stop: 05/30/18 08:59 Last Admin: 04/10/18 08:31 Dose: 12.5 mg Quetiapine Fumarate (Seroquel) 400 mg PO HS [facility]; Protocol Stop: 06/01/18 20:59 Last Admin: 04/09/18 20:43 Dose: 400 mg Quetiapine Fumarate (Seroquel) 100 mg PO BID [facility]; Protocol Stop: 06/05/18 16:59 Last Admin: 04/10/18 08:30 Dose: 100 mg Zolpidem Tartrate (Ambien) 5 mg PO HS PRN PRN Reason: Insomnia Stop: 05/30/18 02:39 Last Admin: 04/08/18 21:07 Dose: 5 mg General: No acute distress HEENT: Atraumatic Neck: Supple, JVD Cardiovascular: Regular rate, Normal S1, Normal S2 Lungs: Clear to auscultation Assessment/Plan - Problem List Patient Problems: All Active Problems HTN (hypertension) (Acute) I10 Schizophrenia (Acute) F20.9 - Plan Plan: as per psych will monitor Nutritional Asmnt/Malnutr-PDOC - Dietary Evaluation Malnutrition Findings (Please click <Entered> for more info): Nutritional Asmnt/Malnutrition Start: 04/04/18 14: 15 Text: Status: Complete Freq: Protocol: Document 04/04/18 14:15 LCHENG (Rec: 04/04/18 14:28 [email or web address]) Nutritional Asmnt/Malnutrition Patient General Information Nutritional Screening Moderate Risk Diagnosis psychosis NOS Pertinent Medical Hx/Surgical Hx HTn, acute renal failure, schizophrenia Subjective Information Pt seen eating in bed at time of visit, consumed 100% of lunch. Per EMR, PO intake 100% of meals. Current Diet Order/ Nutrition Support renal AIXA 80gm Pertinent Medications colace, seroquel Pertinent Labs 03/30 Na 133, glucose 96, A1c 5 .7 Nutritional Hx/Data Height 1.65 m Height (Calculated Centimeters) 165.1 Current Weight (lbs) 65.771 kg Weight (Calculated Kilograms) 65.8 Weight (Calculated Grams) 19647.9 [place] Body Weight 136 Body Mass Index (BMI) 24.1 Weight Status Approriate GI Symptoms GI Symptoms None Last BM 04/02 Difficult in: None Skin Integrity/Comment: intact Current %PO Good (75-100%) Estimated Nutritional Goals BEE in Kcals: Using Current wt Calories/Kcals/Kg 25-30 Kcals Calculated 6937-4316 Protein: Using Current wt Protein g/k Protein Calculated 66 Fluid: ml 1650-1980ml (1ml/kcal) Nutritional Problem No current Nutrition Prob Problem N/A Malnutrition Alert Is there a minimum of two criteria No selected? Query Text:Check all the applicable criteria. A minimum of two criteria are recommended for diagnosis of either severe or non-severe malnutrition. Malnutrition Related to Morbid Obesity Malnutrition related to morbid obesity No Intervention/Recommendation Comments 1. Recommend removing renal diet as renal labs WNL and no hx of CKD. RN notified. 2. Monitor PO intake, wt, labs and skin integrity 3. F/U as low risk in 7 days, 04/11 Expected Outcomes/Goals Expected Outcomes/Goals 1. PO intake to meet at least 75% of nutritional needs. 2. Wt stability, skin to remain intact, labs to approach WNL.
--- NOTE | 2018-04-10 17:12 | Progress Notes ---
DATE: 04/10/2018 SUBJECTIVE: The patient in the hospital, psychotic, pacing back and forth, talking to himself, holding his hand to his ear, talking to somebody as though he is on the following, but there is nobody there. The patient apparently was asking for a snake for some unclear reasons, bizarre, delusional, intrusive, not making any sense, responding heavily to internal stimuli, paranoid and agitated. ASSESSMENT: The patient remains psychotic, ongoing symptoms indicative of acute psychosis. PLAN: We will continue to monitor. I will be increasing his Haldol dosing to target his ongoing psychotic symptoms given his ongoing behaviors, other ongoing safety concerns. He does remain aggressive at times. His medications were noted. [facility]# [id number]
--- NOTE | 2018-04-11 17:57 | Progress Notes ---
DATE: 04/11/2018 Case was discussed with staff of the patient, reviewed records. The patient continues to be psychotic, continues to be unpredictable and impulsive. Continues to be acting bizarre. Continues to have poor insight. Yesterday, he was asking for a snake, still delusional, intrusive, continues to be unpredictable, impulsive. The Haldol dose was increased yesterday by Dr. Herr, who saw him over the weekend, to 4 mg twice a day. He is also on Seroquel 400 mg at bedtime and 100 mg twice a day and no side effects, no sedation, no nausea, no extrapyramidal symptoms. His RPR is nonreactive. Urinalysis within normal range. Chemistry panel with low sodium. The rest within normal range. CBC with high basophil at 4.6, high white cell count 12.9 and no sedation, no nausea, no extrapyramidal symptoms. We will consider the patient in group therapy, milieu therapy, and adjust medication as needed. JOB# [id number]
--- NOTE | 2018-04-12 15:30 | General Progress Note ---
Subjective - Review of Systems Events since last encounter: patient still psychotic disorganized Subjective: awake, some confusion Objective - Results Result Diagrams: 03/30/18 00:25 03/30/18 00:25 Recent Labs: Laboratory Last Values WBC 12.9 Th/cmm (4.8-10.8) H 03/30/18 00:25 RBC 5.21 Mil/cmm (4.30-5.70) 03/30/18 00:25 Hgb 15.2 gm/dL (12-16) 03/30/18 00:25 Hct 45.8 % (41.0-60) 03/30/18 00:25 MCV 87.9 fl (80-99) 03/30/18 00:25 MCH 29.2 pg (26.0-30.0) 03/30/18 00:25 MCHC Differential 33.2 pg (28.0-36.0) 03/30/18 00:25 RDW 14.9 % (11.5-20.0) 03/30/18 00:25 Plt Count 271 Th/cmm (150-400) 03/30/18 00:25 MPV 7.9 fl 03/30/18 00:25 Neutrophils % 57.0 % (40.0-80.0) 03/30/18 00:25 Lymphocytes % 31.5 % (20.0-50.0) 03/30/18 00:25 Monocytes % 4.8 % (2.0-10.0) 03/30/18 00:25 Eosinophils % 2.1 % (0.0-5.0) 03/30/18 00:25 Basophils % 4.6 % (0.0-2.0) H 03/30/18 00:25 Sodium 133 mEq/L (136-145) L 03/30/18 00:25 Potassium 3.6 mEq/L (3.5-5.1) 03/30/18 00:25 Chloride 101 mEq/L (98-107) 03/30/18 00:25 Carbon Dioxide 23.9 mEq/L (21.0-31.0) 03/30/18 00:25 Anion Gap 11.7 (7.0-16.0) 03/30/18 00:25 BUN 12 mg/dL (7-25) 03/30/18 00:25 Creatinine 1.1 mg/dL (0.7-1.3) 03/30/18 00:25 Est GFR ( Amer) > 60.0 ml/min (>90) 03/30/18 00:25 Est GFR (Non-Af Amer) > 60.0 ml/min 03/30/18 00:25 BUN/Creatinine Ratio 10.9 03/30/18 00:25 Glucose 96 mg/dL (70-105) 03/30/18 00:25 Hemoglobin A1c % 5.7 % (4.0-6.0) 03/30/18 00:25 Calcium 10.0 mg/dL (8.6-10.3) 03/30/18 00:25 Total Bilirubin 0.4 mg/dL (0.3-1.0) 03/30/18 00:25 AST 34 U/L (13-39) 03/30/18 00:25 ALT 17 U/L (7-52) 03/30/18 00:25 Alkaline Phosphatase 77 U/L (34-104) 03/30/18 00:25 Total Protein 7.6 gm/dL (6.0-8.3) 03/30/18 00:25 Albumin 4.4 gm/dL (4.2-5.5) 03/30/18 00:25 Globulin 3.2 gm/dL 03/30/18 00:25 Albumin/Globulin Ratio 1.4 (1.0-1.8) 03/30/18 00:25 Triglycerides 88 mg/dL (<150) 03/30/18 00:25 Cholesterol 147 mg/dL (<200) 03/30/18 00:25 LDL Cholesterol Direct 87 mg/dL (75-193) 03/30/18 00:25 HDL Cholesterol 48 mg/dL (23-92) 03/30/18 00:25 TSH 2.52 uIU/ml (0.34-5.60) 03/30/18 00:25 Urine Source CLEAN C 03/31/18 00:10 Urine Color YELLOW 03/31/18 00:10 Urine Clarity CLEAR (CLEAR) 03/31/18 00:10 Urine pH 5.5 (4.6 - 8.0) 03/31/18 00:10 Ur Specific [place] <= 1.005 (1.005-1.030) 03/31/18 00:10 Urine Protein NEGATIVE mg/dL (NEGATIVE) 03/31/18 00:10 Urine Glucose (UA) NEGATIVE mg/dL (NEGATIVE) 03/31/18 00:10 Urine Ketones NEGATIVE mg/dL (NEGATIVE) 03/31/18 00:10 Urine Blood NEGATIVE (NEGATIVE) 03/31/18 00:10 Urine Nitrate NEGATIVE (NEGATIVE) 03/31/18 00:10 Urine Bilirubin NEGATIVE (NEGATIVE) 03/31/18 00:10 Urine Urobilinogen 0.2 E.U./dL (0.2 - 1.0) 03/31/18 00:10 Ur Leukocyte Esterase NEGATIVE (NEGATIVE) 03/31/18 00:10 RPR NONREACTIVE (NONREACTIVE) 03/30/18 00:25 - Physical Exam Vitals and I&O: Vital Signs Temp 98.5 F 04/12/18 15:11 Pulse 101 04/12/18 15:11 Resp 18 04/12/18 15:11 BP 117/79 04/12/18 15:11 Pulse Ox 100 04/12/18 15:11 Intake & Output 04/11/18 04/12/18 04/12/18 18:59 06:59 18:59 Intake Total 480 Balance 480 Weight (lbs) 65.771 kg Intake: Oral 480 Other: # Voids 2 # Bowel Movements 0 Weight Source Bedscale Active Medications: Current Medications Acetaminophen (Tylenol) 650 mg PO Q4HR PRN PRN Reason: Mild Pain / Temp above 100 Stop: 05/30/18 04:20 Last Admin: 04/11/18 14:19 Dose: 650 mg Divalproex Sodium (Depakote Dr) 250 mg PO Q8HR [facility]; Protocol Stop: 06/04/18 12:59 Last Admin: 04/12/18 14:18 Dose: 250 mg Docusate Sodium (Colace) 100 mg PO BID [facility] Stop: 05/30/18 08:59 Last Admin: 04/12/18 08:44 Dose: 100 mg Haloperidol (Haldol) 4 mg PO BID [facility]; Protocol Stop: 06/09/18 16:59 Last Admin: 04/12/18 08:43 Dose: 4 mg Lorazepam (Ativan) 0.5 mg PO Q4HR PRN; Protocol PRN Reason: Anxiety Stop: 04/30/18 02:39 Last Admin: 04/12/18 05:49 Dose: 0.5 mg Magnesium Hydroxide (Milk Of Magnesia) 30 ml PO HS PRN PRN Reason: Constipation Stop: 05/30/18 04:20 Metoprolol Tartrate (Lopressor) 12.5 mg PO BID [facility] Stop: 05/30/18 08:59 Last Admin: 04/12/18 08:44 Dose: 12.5 mg Quetiapine Fumarate (Seroquel) 400 mg PO HS [facility]; Protocol Stop: 06/01/18 20:59 Last Admin: 04/11/18 20:55 Dose: 400 mg Quetiapine Fumarate (Seroquel) 100 mg PO BID [facility]; Protocol Stop: 06/05/18 16:59 Last Admin: 04/12/18 08:44 Dose: 100 mg Zolpidem Tartrate (Ambien) 5 mg PO HS PRN PRN Reason: Insomnia Stop: 05/30/18 02:39 Last Admin: 04/11/18 20:55 Dose: 5 mg General: No acute distress HEENT: Atraumatic Neck: Supple, JVD Cardiovascular: Regular rate, Normal S1, Normal S2 Lungs: Clear to auscultation Assessment/Plan - Problem List Patient Problems: All Active Problems HTN (hypertension) (Acute) I10 Schizophrenia (Acute) F20.9 - Plan Plan: as per psych will monitor Nutritional Asmnt/Malnutr-PDOC - Dietary Evaluation Malnutrition Findings (Please click <Entered> for more info): Nutritional Asmnt/Malnutrition Start: 04/04/18 14: 15 Text: Status: Complete Freq: Protocol: Document 04/04/18 14:15 LCHENG (Rec: 04/04/18 14:28 LCHENG [email or web address]) Nutritional Asmnt/Malnutrition Patient General Information Nutritional Screening Moderate Risk Diagnosis psychosis NOS Pertinent Medical Hx/Surgical Hx HTn, acute renal failure, schizophrenia Subjective Information Pt seen eating in bed at time of visit, consumed 100% of lunch. Per EMR, PO intake 100% of meals. Current Diet Order/ Nutrition Support renal AIXA 80gm Pertinent Medications colace, seroquel Pertinent Labs 03/30 Na 133, glucose 96, A1c 5 .7 Nutritional Hx/Data Height 1.65 m Height (Calculated Centimeters) 165.1 Current Weight (lbs) 65.771 kg Weight (Calculated Kilograms) 65.8 Weight (Calculated Grams) 29802.9 [place] Body Weight 136 Body Mass Index (BMI) 24.1 Weight Status Approriate GI Symptoms GI Symptoms None Last BM 04/02 Difficult in: None Skin Integrity/Comment: intact Current %PO Good (75-100%) Estimated Nutritional Goals BEE in Kcals: Using Current wt Calories/Kcals/Kg 25-30 Kcals Calculated 9127-0230 Protein: Using Current wt Protein g/k Protein Calculated 66 Fluid: ml 1650-1980ml (1ml/kcal) Nutritional Problem No current Nutrition Prob Problem N/A Malnutrition Alert Is there a minimum of two criteria No selected? Query Text:Check all the applicable criteria. A minimum of two criteria are recommended for diagnosis of either severe or non-severe malnutrition. Malnutrition Related to Morbid Obesity Malnutrition related to morbid obesity No Intervention/Recommendation Comments 1. Recommend removing renal diet as renal labs WNL and no hx of CKD. RN notified. 2. Monitor PO intake, wt, labs and skin integrity 3. F/U as low risk in 7 days, 04/11 Expected Outcomes/Goals Expected Outcomes/Goals 1. PO intake to meet at least 75% of nutritional needs. 2. Wt stability, skin to remain intact, labs to approach WNL.
--- NOTE | 2018-04-12 17:34 | Progress Notes ---
DATE: 04/12/2018 Case was discussed with staff of the patient, reviewed records. The patient continues to be easily agitated, irritable, psychotic, rambling speech, unable to participate in meaningful conversation or make safe plan for self-care. Continues to be unpredictable and impulsive. His medication was adjusted in the last 2 days since ____ to make further adjustments. No side effects with the medication, no sedation, no nausea, no extrapyramidal symptoms and we will continue to work with the patient in group therapy, milieu therapy, and adjust the medication as needed. JOB# [id number]
--- NOTE | 2018-04-13 11:25 | General Progress Note ---
Subjective - Review of Systems Events since last encounter: patient confused disorganized Subjective: awake, some confusion Objective - Results Result Diagrams: 03/30/18 00:25 03/30/18 00:25 Recent Labs: Laboratory Last Values WBC 12.9 Th/cmm (4.8-10.8) H 03/30/18 00:25 RBC 5.21 Mil/cmm (4.30-5.70) 03/30/18 00:25 Hgb 15.2 gm/dL (12-16) 03/30/18 00:25 Hct 45.8 % (41.0-60) 03/30/18 00:25 MCV 87.9 fl (80-99) 03/30/18 00:25 MCH 29.2 pg (26.0-30.0) 03/30/18 00:25 MCHC Differential 33.2 pg (28.0-36.0) 03/30/18 00:25 RDW 14.9 % (11.5-20.0) 03/30/18 00:25 Plt Count 271 Th/cmm (150-400) 03/30/18 00:25 MPV 7.9 fl 03/30/18 00:25 Neutrophils % 57.0 % (40.0-80.0) 03/30/18 00:25 Lymphocytes % 31.5 % (20.0-50.0) 03/30/18 00:25 Monocytes % 4.8 % (2.0-10.0) 03/30/18 00:25 Eosinophils % 2.1 % (0.0-5.0) 03/30/18 00:25 Basophils % 4.6 % (0.0-2.0) H 03/30/18 00:25 Sodium 133 mEq/L (136-145) L 03/30/18 00:25 Potassium 3.6 mEq/L (3.5-5.1) 03/30/18 00:25 Chloride 101 mEq/L (98-107) 03/30/18 00:25 Carbon Dioxide 23.9 mEq/L (21.0-31.0) 03/30/18 00:25 Anion Gap 11.7 (7.0-16.0) 03/30/18 00:25 BUN 12 mg/dL (7-25) 03/30/18 00:25 Creatinine 1.1 mg/dL (0.7-1.3) 03/30/18 00:25 Est GFR ( Amer) > 60.0 ml/min (>90) 03/30/18 00:25 Est GFR (Non-Af Amer) > 60.0 ml/min 03/30/18 00:25 BUN/Creatinine Ratio 10.9 03/30/18 00:25 Glucose 96 mg/dL (70-105) 03/30/18 00:25 Hemoglobin A1c % 5.7 % (4.0-6.0) 03/30/18 00:25 Calcium 10.0 mg/dL (8.6-10.3) 03/30/18 00:25 Total Bilirubin 0.4 mg/dL (0.3-1.0) 03/30/18 00:25 AST 34 U/L (13-39) 03/30/18 00:25 ALT 17 U/L (7-52) 03/30/18 00:25 Alkaline Phosphatase 77 U/L (34-104) 03/30/18 00:25 Total Protein 7.6 gm/dL (6.0-8.3) 03/30/18 00:25 Albumin 4.4 gm/dL (4.2-5.5) 03/30/18 00:25 Globulin 3.2 gm/dL 03/30/18 00:25 Albumin/Globulin Ratio 1.4 (1.0-1.8) 03/30/18 00:25 Triglycerides 88 mg/dL (<150) 03/30/18 00:25 Cholesterol 147 mg/dL (<200) 03/30/18 00:25 LDL Cholesterol Direct 87 mg/dL (75-193) 03/30/18 00:25 HDL Cholesterol 48 mg/dL (23-92) 03/30/18 00:25 TSH 2.52 uIU/ml (0.34-5.60) 03/30/18 00:25 Urine Source CLEAN C 03/31/18 00:10 Urine Color YELLOW 03/31/18 00:10 Urine Clarity CLEAR (CLEAR) 03/31/18 00:10 Urine pH 5.5 (4.6 - 8.0) 03/31/18 00:10 Ur Specific [place] <= 1.005 (1.005-1.030) 03/31/18 00:10 Urine Protein NEGATIVE mg/dL (NEGATIVE) 03/31/18 00:10 Urine Glucose (UA) NEGATIVE mg/dL (NEGATIVE) 03/31/18 00:10 Urine Ketones NEGATIVE mg/dL (NEGATIVE) 03/31/18 00:10 Urine Blood NEGATIVE (NEGATIVE) 03/31/18 00:10 Urine Nitrate NEGATIVE (NEGATIVE) 03/31/18 00:10 Urine Bilirubin NEGATIVE (NEGATIVE) 03/31/18 00:10 Urine Urobilinogen 0.2 E.U./dL (0.2 - 1.0) 03/31/18 00:10 Ur Leukocyte Esterase NEGATIVE (NEGATIVE) 03/31/18 00:10 RPR NONREACTIVE (NONREACTIVE) 03/30/18 00:25 - Physical Exam Vitals and I&O: Vital Signs Temp 98.1 F 04/13/18 06:38 Pulse 100 04/13/18 09:43 Resp 19 04/13/18 06:38 BP 121/76 04/13/18 09:43 Pulse Ox 100 04/13/18 06:38 Active Medications: Current Medications Acetaminophen (Tylenol) 650 mg PO Q4HR PRN PRN Reason: Mild Pain / Temp above 100 Stop: 05/30/18 04:20 Last Admin: 04/11/18 14:19 Dose: 650 mg Divalproex Sodium (Depakote Dr) 250 mg PO Q8HR [facility]; Protocol Stop: 06/04/18 12:59 Last Admin: 04/13/18 05:45 Dose: 250 mg Docusate Sodium (Colace) 100 mg PO BID [facility] Stop: 05/30/18 08:59 Last Admin: 04/13/18 09:45 Dose: 100 mg Haloperidol (Haldol) 4 mg PO BID [facility]; Protocol Stop: 06/09/18 16:59 Last Admin: 04/13/18 09:43 Dose: 4 mg Lorazepam (Ativan) 0.5 mg PO Q4HR PRN; Protocol PRN Reason: Anxiety Stop: 04/30/18 02:39 Last Admin: 04/12/18 05:49 Dose: 0.5 mg Magnesium Hydroxide (Milk Of Magnesia) 30 ml PO HS PRN PRN Reason: Constipation Stop: 05/30/18 04:20 Metoprolol Tartrate (Lopressor) 12.5 mg PO BID [facility] Stop: 05/30/18 08:59 Last Admin: 04/13/18 09:43 Dose: 12.5 mg Quetiapine Fumarate (Seroquel) 400 mg PO HS [facility]; Protocol Stop: 06/01/18 20:59 Last Admin: 04/12/18 21:14 Dose: 400 mg Quetiapine Fumarate (Seroquel) 100 mg PO BID [facility]; Protocol Stop: 06/05/18 16:59 Last Admin: 04/13/18 09:44 Dose: 100 mg Zolpidem Tartrate (Ambien) 5 mg PO HS PRN PRN Reason: Insomnia Stop: 05/30/18 02:39 Last Admin: 04/12/18 21:14 Dose: 5 mg General: No acute distress HEENT: Atraumatic Neck: Supple, JVD Cardiovascular: Regular rate, Normal S1, Normal S2 Lungs: Clear to auscultation Assessment/Plan - Problem List Patient Problems: All Active Problems HTN (hypertension) (Acute) I10 Schizophrenia (Acute) F20.9 - Plan Plan: as per psych will monitor Nutritional Asmnt/Malnutr-PDOC - Dietary Evaluation Malnutrition Findings (Please click <Entered> for more info): Nutritional Asmnt/Malnutrition Start: 04/04/18 14: 15 Text: Status: Complete Freq: Protocol: Document 04/04/18 14:15 LCHENG (Rec: 04/04/18 14:28 LCHENG [email or web address]) Nutritional Asmnt/Malnutrition Patient General Information Nutritional Screening Moderate Risk Diagnosis psychosis NOS Pertinent Medical Hx/Surgical Hx HTn, acute renal failure, schizophrenia Subjective Information Pt seen eating in bed at time of visit, consumed 100% of lunch. Per EMR, PO intake 100% of meals. Current Diet Order/ Nutrition Support renal AIXA 80gm Pertinent Medications colace, seroquel Pertinent Labs 03/30 Na 133, glucose 96, A1c 5 .7 Nutritional Hx/Data Height 1.65 m Height (Calculated Centimeters) 165.1 Current Weight (lbs) 65.771 kg Weight (Calculated Kilograms) 65.8 Weight (Calculated Grams) 87736.9 [place] Body Weight 136 Body Mass Index (BMI) 24.1 Weight Status Approriate GI Symptoms GI Symptoms None Last BM 04/02 Difficult in: None Skin Integrity/Comment: intact Current %PO Good (75-100%) Estimated Nutritional Goals BEE in Kcals: Using Current wt Calories/Kcals/Kg 25-30 Kcals Calculated 8687-4800 Protein: Using Current wt Protein g/k Protein Calculated 66 Fluid: ml 1650-1980ml (1ml/kcal) Nutritional Problem No current Nutrition Prob Problem N/A Malnutrition Alert Is there a minimum of two criteria No selected? Query Text:Check all the applicable criteria. A minimum of two criteria are recommended for diagnosis of either severe or non-severe malnutrition. Malnutrition Related to Morbid Obesity Malnutrition related to morbid obesity No Intervention/Recommendation Comments 1. Recommend removing renal diet as renal labs WNL and no hx of CKD. RN notified. 2. Monitor PO intake, wt, labs and skin integrity 3. F/U as low risk in 7 days, 04/11 Expected Outcomes/Goals Expected Outcomes/Goals 1. PO intake to meet at least 75% of nutritional needs. 2. Wt stability, skin to remain intact, labs to approach WNL.
--- NOTE | 2018-04-13 15:11 | Progress Notes ---
DATE: 04/13/2018 Case was discussed with staff of the patient, reviewed records. The patient continues to be irritable, agitated. Continues to have poor insight. Unable to make safe plan for self-care, unpredictable, impulsive, needing redirection. Tolerated the increase in his Seroquel and Haldol with no side effects. No sedation or nausea. No extrapyramidal symptoms. We will continue ____ group therapy, milieu therapy and adjust the medication as needed. JOB# [id number]
--- NOTE | 2018-04-14 16:01 | Internal Medicine Prog Note ---
Internal Medicine Subjective - Subjective Service Date: 04/14/18 Patient is:: awake Per staff patient has:: tolerating meds Internal Medicine Objective - Results Result Diagrams: 03/30/18 00:25 03/30/18 00:25 Recent Labs: Laboratory Last Values WBC 12.9 Th/cmm (4.8-10.8) H 03/30/18 00:25 RBC 5.21 Mil/cmm (4.30-5.70) 03/30/18 00:25 Hgb 15.2 gm/dL (12-16) 03/30/18 00:25 Hct 45.8 % (41.0-60) 03/30/18 00:25 MCV 87.9 fl (80-99) 03/30/18 00:25 MCH 29.2 pg (26.0-30.0) 03/30/18 00:25 MCHC Differential 33.2 pg (28.0-36.0) 03/30/18 00:25 RDW 14.9 % (11.5-20.0) 03/30/18 00:25 Plt Count 271 Th/cmm (150-400) 03/30/18 00:25 MPV 7.9 fl 03/30/18 00:25 Neutrophils % 57.0 % (40.0-80.0) 03/30/18 00:25 Lymphocytes % 31.5 % (20.0-50.0) 03/30/18 00:25 Monocytes % 4.8 % (2.0-10.0) 03/30/18 00:25 Eosinophils % 2.1 % (0.0-5.0) 03/30/18 00:25 Basophils % 4.6 % (0.0-2.0) H 03/30/18 00:25 Sodium 133 mEq/L (136-145) L 03/30/18 00:25 Potassium 3.6 mEq/L (3.5-5.1) 03/30/18 00:25 Chloride 101 mEq/L (98-107) 03/30/18 00:25 Carbon Dioxide 23.9 mEq/L (21.0-31.0) 03/30/18 00:25 Anion Gap 11.7 (7.0-16.0) 03/30/18 00:25 BUN 12 mg/dL (7-25) 03/30/18 00:25 Creatinine 1.1 mg/dL (0.7-1.3) 03/30/18 00:25 Est GFR ( Amer) > 60.0 ml/min (>90) 03/30/18 00:25 Est GFR (Non-Af Amer) > 60.0 ml/min 03/30/18 00:25 BUN/Creatinine Ratio 10.9 03/30/18 00:25 Glucose 96 mg/dL (70-105) 03/30/18 00:25 Hemoglobin A1c % 5.7 % (4.0-6.0) 03/30/18 00:25 Calcium 10.0 mg/dL (8.6-10.3) 03/30/18 00:25 Total Bilirubin 0.4 mg/dL (0.3-1.0) 03/30/18 00:25 AST 34 U/L (13-39) 03/30/18 00:25 ALT 17 U/L (7-52) 03/30/18 00:25 Alkaline Phosphatase 77 U/L (34-104) 03/30/18 00:25 Total Protein 7.6 gm/dL (6.0-8.3) 03/30/18 00:25 Albumin 4.4 gm/dL (4.2-5.5) 03/30/18 00:25 Globulin 3.2 gm/dL 03/30/18 00:25 Albumin/Globulin Ratio 1.4 (1.0-1.8) 03/30/18 00:25 Triglycerides 88 mg/dL (<150) 03/30/18 00:25 Cholesterol 147 mg/dL (<200) 03/30/18 00:25 LDL Cholesterol Direct 87 mg/dL (75-193) 03/30/18 00:25 HDL Cholesterol 48 mg/dL (23-92) 03/30/18 00:25 TSH 2.52 uIU/ml (0.34-5.60) 03/30/18 00:25 Urine Source CLEAN C 03/31/18 00:10 Urine Color YELLOW 03/31/18 00:10 Urine Clarity CLEAR (CLEAR) 03/31/18 00:10 Urine pH 5.5 (4.6 - 8.0) 03/31/18 00:10 Ur Specific [place] <= 1.005 (1.005-1.030) 03/31/18 00:10 Urine Protein NEGATIVE mg/dL (NEGATIVE) 03/31/18 00:10 Urine Glucose (UA) NEGATIVE mg/dL (NEGATIVE) 03/31/18 00:10 Urine Ketones NEGATIVE mg/dL (NEGATIVE) 03/31/18 00:10 Urine Blood NEGATIVE (NEGATIVE) 03/31/18 00:10 Urine Nitrate NEGATIVE (NEGATIVE) 03/31/18 00:10 Urine Bilirubin NEGATIVE (NEGATIVE) 03/31/18 00:10 Urine Urobilinogen 0.2 E.U./dL (0.2 - 1.0) 03/31/18 00:10 Ur Leukocyte Esterase NEGATIVE (NEGATIVE) 03/31/18 00:10 RPR NONREACTIVE (NONREACTIVE) 03/30/18 00:25 - Physical Exam Vitals and I&O: Vital Signs Temp 97.1 F 04/14/18 14:00 Pulse 99 04/14/18 14:00 Resp 19 04/14/18 14:00 BP 128/83 04/14/18 14:00 Pulse Ox 96 04/14/18 14:00 Intake & Output 04/13/18 04/14/18 04/14/18 18:59 06:59 18:59 Intake Total 1900 Balance 1900 Intake: Oral 1900 Other: # Voids 4 Active Medications: Current Medications Acetaminophen (Tylenol) 650 mg PO Q4HR PRN PRN Reason: Mild Pain / Temp above 100 Stop: 05/30/18 04:20 Last Admin: 04/11/18 14:19 Dose: 650 mg Divalproex Sodium (Depakote Dr) 250 mg PO Q8HR [facility]; Protocol Stop: 06/04/18 12:59 Last Admin: 04/14/18 13:29 Dose: 250 mg Docusate Sodium (Colace) 100 mg PO BID [facility] Stop: 05/30/18 08:59 Last Admin: 04/14/18 09:16 Dose: 100 mg Haloperidol (Haldol) 4 mg PO BID [facility]; Protocol Stop: 06/09/18 16:59 Last Admin: 04/14/18 09:16 Dose: 4 mg Lorazepam (Ativan) 0.5 mg PO Q4HR PRN; Protocol PRN Reason: Anxiety Stop: 04/30/18 02:39 Last Admin: 04/12/18 05:49 Dose: 0.5 mg Magnesium Hydroxide (Milk Of Magnesia) 30 ml PO HS PRN PRN Reason: Constipation Stop: 05/30/18 04:20 Metoprolol Tartrate (Lopressor) 12.5 mg PO BID [facility] Stop: 05/30/18 08:59 Last Admin: 04/14/18 09:17 Dose: 12.5 mg Quetiapine Fumarate (Seroquel) 400 mg PO HS [facility]; Protocol Stop: 06/01/18 20:59 Last Admin: 04/13/18 20:58 Dose: 400 mg Quetiapine Fumarate 100 mg/ (Quetiapine Fumarate 25 mg) 125 mg PO BID [facility] Stop: 06/14/18 08:59 Zolpidem Tartrate (Ambien) 5 mg PO HS PRN PRN Reason: Insomnia Stop: 05/30/18 02:39 Last Admin: 04/13/18 20:59 Dose: 5 mg General: alert HEENT: NC/AT, PERRLA Lungs: CTAB Cardiovascular: RRR, without murmur Abdomen: soft, non-tender, non-distended, positive bowel sound Internal Medicine Assmt/Plan - Assessment Assessment: agitation htn hx arf schizophrenia - Plan Plan: cpm Nutritional Asmnt/Malnutr-PDOC - Dietary Evaluation Malnutrition Findings (Please click <Entered> for more info): Nutritional Asmnt/Malnutrition Start: 04/04/18 14: 15 Text: Status: Complete Freq: Protocol: Document 04/04/18 14:15 LCHENG (Rec: 04/04/18 14:28 [email or web address]) Nutritional Asmnt/Malnutrition Patient General Information Nutritional Screening Moderate Risk Diagnosis psychosis NOS Pertinent Medical Hx/Surgical Hx HTn, acute renal failure, schizophrenia Subjective Information Pt seen eating in bed at time of visit, consumed 100% of lunch. Per EMR, PO intake 100% of meals. Current Diet Order/ Nutrition Support renal AIXA 80gm Pertinent Medications colace, seroquel Pertinent Labs 03/30 Na 133, glucose 96, A1c 5 .7 Nutritional Hx/Data Height 5 ft 5 in Height (Calculated Centimeters) 165.1 Current Weight (lbs) 145 lb Weight (Calculated Kilograms) 65.8 Weight (Calculated Grams) 49506.9 [place] Body Weight 136 Body Mass Index (BMI) 24.1 Weight Status Approriate GI Symptoms GI Symptoms None Last BM 04/02 Difficult in: None Skin Integrity/Comment: intact Current %PO Good (75-100%) Estimated Nutritional Goals BEE in Kcals: Using Current wt Calories/Kcals/Kg 25-30 Kcals Calculated 0402-4210 Protein: Using Current wt Protein g/k Protein Calculated 66 Fluid: ml 1650-1980ml (1ml/kcal) Nutritional Problem No current Nutrition Prob Problem N/A Malnutrition Alert Is there a minimum of two criteria No selected? Query Text:Check all the applicable criteria. A minimum of two criteria are recommended for diagnosis of either severe or non-severe malnutrition. Malnutrition Related to Morbid Obesity Malnutrition related to morbid obesity No Intervention/Recommendation Comments 1. Recommend removing renal diet as renal labs WNL and no hx of CKD. RN notified. 2. Monitor PO intake, wt, labs and skin integrity 3. F/U as low risk in 7 days, 04/11 Expected Outcomes/Goals Expected Outcomes/Goals 1. PO intake to meet at least 75% of nutritional needs. 2. Wt stability, skin to remain intact, labs to approach WNL.
--- NOTE | 2018-04-14 16:26 | Progress Notes ---
DATE: 04/14/2018 Case was discussed with staff of the patient, reviewed records. The patient continues to be easily agitated, continues to be loud, continues to be unpredictable, impulsive, very poor insight. Continues to be unable to make safe plan for self-care. I will be increasing Seroquel to 125 twice a day and keep the 400 mg at bedtime and so far no side effects, no sedation, no nausea, no extrapyramidal symptoms. Still at risk for discharge because of severe agitation and agitation, psychosis, loud, talking to himself, unpredictable impulsive, needing redirection. We will continue to work with the patient in group therapy, milieu therapy, and adjust the medications as needed. JOB# [id number]
--- NOTE | 2018-04-15 12:38 | Progress Notes ---
DATE: 04/15/2018 SUBJECTIVE: The patient was seen in the dining area. The patient appears to be guarded, easily gets agitated and irritable, has poor impulse control. Otherwise, the patient appears to be in no acute distress. OBJECTIVE: VITAL SIGNS: Temperature is 98.6, heart rate of 84, blood pressure 112/73, respirations 20, and saturation of 99% on room air. HEENT: Head is atraumatic and normocephalic. Eyes, bilateral conjunctivae are clear. Bilateral pupils are equally round and reactive. NECK: Supple. No JVD. CARDIOVASCULAR: S1 and S2, without murmur. PULMONARY: Clear to auscultation. GASTROINTESTINAL: Soft and nontender without guarding. Positive bowel sounds. MUSCULOSKELETAL: No clubbing. No cyanosis noted. ASSESSMENT: 1. Schizoaffective disorder. 2. Hypertension. PLAN: We will keep the patient inpatient in Psychiatric Unit and will follow up with the psychiatrist to monitor the patient's condition and behavior. Treatment plans were discussed with the patient's nurse. Treatment plans were discussed with Dr. Sol. JOB# [id number]
--- NOTE | 2018-04-16 09:51 | Progress Notes ---
DATE: 04/15/2018 SUBJECTIVE: The patient was seen and evaluated. The patient's chart reviewed. This is Dr. Kerns covering for Dr. Fatima. The patient is a 57-year-old male with history of schizophrenia. He is currently on Seroquel 400 mg p.o. at bedtime, metoprolol, Ativan as needed, 4 mg of haloperidol twice a day and 125 of Seroquel ____ b.i.d. Today on [id number] evaluation, the patient denies any side effects of medications. Thought process still at times derailed, still needs a lot of redirection to maintain a linear conversation. MENTAL STATUS EXAMINATION: Still easily agitated, continues to be lot of pacing and disorganized thought process. ASSESSMENT AND PLAN: The patient is a 57-year-old male with history of schizophrenia whose Seroquel was recently increased to 125 mg b.i.d. and ____ p.o. b.i.d. to target the patient's ongoing symptoms with no side effect, stable, tolerating. No tardive dyskinesia. No sedation. No nausea. No EPS. We will continue to monitor and evaluate with primary psychiatry and plan and goals were attained. JOB# [id number]
--- NOTE | 2018-04-16 11:19 | General Progress Note ---
Subjective - Review of Systems Events since last encounter: patient still irritable confused Subjective: awake, some confusion Objective - Results Result Diagrams: 03/30/18 00:25 03/30/18 00:25 Recent Labs: Laboratory Last Values WBC 12.9 Th/cmm (4.8-10.8) H 03/30/18 00:25 RBC 5.21 Mil/cmm (4.30-5.70) 03/30/18 00:25 Hgb 15.2 gm/dL (12-16) 03/30/18 00:25 Hct 45.8 % (41.0-60) 03/30/18 00:25 MCV 87.9 fl (80-99) 03/30/18 00:25 MCH 29.2 pg (26.0-30.0) 03/30/18 00:25 MCHC Differential 33.2 pg (28.0-36.0) 03/30/18 00:25 RDW 14.9 % (11.5-20.0) 03/30/18 00:25 Plt Count 271 Th/cmm (150-400) 03/30/18 00:25 MPV 7.9 fl 03/30/18 00:25 Neutrophils % 57.0 % (40.0-80.0) 03/30/18 00:25 Lymphocytes % 31.5 % (20.0-50.0) 03/30/18 00:25 Monocytes % 4.8 % (2.0-10.0) 03/30/18 00:25 Eosinophils % 2.1 % (0.0-5.0) 03/30/18 00:25 Basophils % 4.6 % (0.0-2.0) H 03/30/18 00:25 Sodium 133 mEq/L (136-145) L 03/30/18 00:25 Potassium 3.6 mEq/L (3.5-5.1) 03/30/18 00:25 Chloride 101 mEq/L (98-107) 03/30/18 00:25 Carbon Dioxide 23.9 mEq/L (21.0-31.0) 03/30/18 00:25 Anion Gap 11.7 (7.0-16.0) 03/30/18 00:25 BUN 12 mg/dL (7-25) 03/30/18 00:25 Creatinine 1.1 mg/dL (0.7-1.3) 03/30/18 00:25 Est GFR ( Amer) > 60.0 ml/min (>90) 03/30/18 00:25 Est GFR (Non-Af Amer) > 60.0 ml/min 03/30/18 00:25 BUN/Creatinine Ratio 10.9 03/30/18 00:25 Glucose 96 mg/dL (70-105) 03/30/18 00:25 Hemoglobin A1c % 5.7 % (4.0-6.0) 03/30/18 00:25 Calcium 10.0 mg/dL (8.6-10.3) 03/30/18 00:25 Total Bilirubin 0.4 mg/dL (0.3-1.0) 03/30/18 00:25 AST 34 U/L (13-39) 03/30/18 00:25 ALT 17 U/L (7-52) 03/30/18 00:25 Alkaline Phosphatase 77 U/L (34-104) 03/30/18 00:25 Total Protein 7.6 gm/dL (6.0-8.3) 03/30/18 00:25 Albumin 4.4 gm/dL (4.2-5.5) 03/30/18 00:25 Globulin 3.2 gm/dL 03/30/18 00:25 Albumin/Globulin Ratio 1.4 (1.0-1.8) 03/30/18 00:25 Triglycerides 88 mg/dL (<150) 03/30/18 00:25 Cholesterol 147 mg/dL (<200) 03/30/18 00:25 LDL Cholesterol Direct 87 mg/dL (75-193) 03/30/18 00:25 HDL Cholesterol 48 mg/dL (23-92) 03/30/18 00:25 TSH 2.52 uIU/ml (0.34-5.60) 03/30/18 00:25 Urine Source CLEAN C 03/31/18 00:10 Urine Color YELLOW 03/31/18 00:10 Urine Clarity CLEAR (CLEAR) 03/31/18 00:10 Urine pH 5.5 (4.6 - 8.0) 03/31/18 00:10 Ur Specific [place] <= 1.005 (1.005-1.030) 03/31/18 00:10 Urine Protein NEGATIVE mg/dL (NEGATIVE) 03/31/18 00:10 Urine Glucose (UA) NEGATIVE mg/dL (NEGATIVE) 03/31/18 00:10 Urine Ketones NEGATIVE mg/dL (NEGATIVE) 03/31/18 00:10 Urine Blood NEGATIVE (NEGATIVE) 03/31/18 00:10 Urine Nitrate NEGATIVE (NEGATIVE) 03/31/18 00:10 Urine Bilirubin NEGATIVE (NEGATIVE) 03/31/18 00:10 Urine Urobilinogen 0.2 E.U./dL (0.2 - 1.0) 03/31/18 00:10 Ur Leukocyte Esterase NEGATIVE (NEGATIVE) 03/31/18 00:10 RPR NONREACTIVE (NONREACTIVE) 03/30/18 00:25 - Physical Exam Vitals and I&O: Vital Signs Temp 97.7 F 04/16/18 06:37 Pulse 88 04/16/18 08:59 Resp 19 04/16/18 06:37 BP 107/74 04/16/18 08:59 Pulse Ox 99 04/16/18 06:37 Intake & Output 04/15/18 04/16/18 04/16/18 18:59 06:59 18:59 Intake Total 500 Balance 500 Intake: Oral 500 Other: # Voids 3 # Bowel Movements 0 Active Medications: Current Medications Acetaminophen (Tylenol) 650 mg PO Q4HR PRN PRN Reason: Mild Pain / Temp above 100 Stop: 05/30/18 04:20 Last Admin: 04/11/18 14:19 Dose: 650 mg Divalproex Sodium (Depakote Dr) 250 mg PO Q8HR [facility]; Protocol Stop: 06/04/18 12:59 Last Admin: 04/16/18 05:58 Dose: 250 mg Docusate Sodium (Colace) 100 mg PO BID [facility] Stop: 05/30/18 08:59 Last Admin: 04/16/18 08:59 Dose: Not Given Haloperidol (Haldol) 4 mg PO BID [facility]; Protocol Stop: 06/09/18 16:59 Last Admin: 04/16/18 08:58 Dose: 4 mg Lorazepam (Ativan) 0.5 mg PO Q4HR PRN; Protocol PRN Reason: Anxiety Stop: 04/30/18 02:39 Last Admin: 04/16/18 08:58 Dose: 0.5 mg Magnesium Hydroxide (Milk Of Magnesia) 30 ml PO HS PRN PRN Reason: Constipation Stop: 05/30/18 04:20 Metoprolol Tartrate (Lopressor) 12.5 mg PO BID [facility] Stop: 05/30/18 08:59 Last Admin: 04/16/18 08:59 Dose: Not Given Quetiapine Fumarate (Seroquel) 400 mg PO HS [facility]; Protocol Stop: 06/01/18 20:59 Last Admin: 04/15/18 21:21 Dose: 400 mg Quetiapine Fumarate 100 mg/ (Quetiapine Fumarate 25 mg) 125 mg PO BID [facility] Stop: 06/14/18 08:59 Last Admin: 04/16/18 08:58 Dose: 125 mg Zolpidem Tartrate (Ambien) 5 mg PO HS PRN PRN Reason: Insomnia Stop: 05/30/18 02:39 Last Admin: 04/15/18 21:22 Dose: 5 mg General: No acute distress HEENT: Atraumatic Neck: Supple, JVD Cardiovascular: Regular rate, Normal S1, Normal S2 Lungs: Clear to auscultation Assessment/Plan - Problem List Patient Problems: All Active Problems HTN (hypertension) (Acute) I10 Schizophrenia (Acute) F20.9 - Plan Plan: as per psych will monitor Nutritional Asmnt/Malnutr-PDOC - Dietary Evaluation Malnutrition Findings (Please click <Entered> for more info): Nutritional Asmnt/Malnutrition Start: 04/04/18 14: 15 Text: Status: Complete Freq: Protocol: Document 04/04/18 14:15 LCHENG (Rec: 04/04/18 14:28 [place] [email or web address]) Nutritional Asmnt/Malnutrition Patient General Information Nutritional Screening Moderate Risk Diagnosis psychosis NOS Pertinent Medical Hx/Surgical Hx HTn, acute renal failure, schizophrenia Subjective Information Pt seen eating in bed at time of visit, consumed 100% of lunch. Per EMR, PO intake 100% of meals. Current Diet Order/ Nutrition Support renal AIXA 80gm Pertinent Medications colace, seroquel Pertinent Labs 03/30 Na 133, glucose 96, A1c 5 .7 Nutritional Hx/Data Height 1.65 m Height (Calculated Centimeters) 165.1 Current Weight (lbs) 65.771 kg Weight (Calculated Kilograms) 65.8 Weight (Calculated Grams) 09824.9 [place] Body Weight 136 Body Mass Index (BMI) 24.1 Weight Status Approriate GI Symptoms GI Symptoms None Last BM 04/02 Difficult in: None Skin Integrity/Comment: intact Current %PO Good (75-100%) Estimated Nutritional Goals BEE in Kcals: Using Current wt Calories/Kcals/Kg 25-30 Kcals Calculated 3474-1991 Protein: Using Current wt Protein g/k Protein Calculated 66 Fluid: ml 1650-1980ml (1ml/kcal) Nutritional Problem No current Nutrition Prob Problem N/A Malnutrition Alert Is there a minimum of two criteria No selected? Query Text:Check all the applicable criteria. A minimum of two criteria are recommended for diagnosis of either severe or non-severe malnutrition. Malnutrition Related to Morbid Obesity Malnutrition related to morbid obesity No Intervention/Recommendation Comments 1. Recommend removing renal diet as renal labs WNL and no hx of CKD. RN notified. 2. Monitor PO intake, wt, labs and skin integrity 3. F/U as low risk in 7 days, 04/11 Expected Outcomes/Goals Expected Outcomes/Goals 1. PO intake to meet at least 75% of nutritional needs. 2. Wt stability, skin to remain intact, labs to approach WNL.
--- NOTE | 2018-04-16 19:30 | Progress Notes ---
DATE: 04/16/2018 The patient was seen and evaluated. The patient's chart have been reviewed. Covering for Dr. Fatima. Today on [id number] evaluation, the patient continues to have difficulty in getting a linear conversation, appears to be disorganized. MENTAL STATUS EXAMINATION: Disorganized, derails a conversation, talking to himself. ASSESSMENT AND PLAN: History of schizophrenia. We will continue with current medication regimen. He continues to be symptomatic. JOB# [id number]
--- NOTE | 2018-04-17 13:01 | Discharge Summary ---
DATE OF DISCHARGE: 04/17/2018 IDENTIFYING INFORMATION: The patient is a 57-year-old male. CHIEF COMPLAINT: Agitation, aggressive behavior. HISTORY OF PRESENT ILLNESS: Please transfer from [place]. The patient apparently brought to the hospital because of increasing agitation and aggressive behavior, irritability. The patient also has been talking to himself, unable to follow staff direction, restless and has been having severe mood swings. The patient with a history of schizoaffective disorder. The patient has no major medical problems and no known drug allergies. COURSE IN THE HOSPITAL: The patient was started back on his medications. He is on Depakote, I added it on 250 mg 3 times a day. Haldol 5mg, increased to 4 mg twice a day. He was also on Seroquel 400 mg at bedtime, that was increased to twice a day. The patient progressively got better. However, in general still has difficulty being disorganized, but he was following direction. He was easier to redirect no longer acting, destructive or grossly psychotic, though he has some disorganization concrete thinking. So since he is going to a SNF facility, we felt he could be discharged to a lesser level of care. FINAL DIAGNOSIS: Schizoaffective disorder, bipolar type. MEDICAL DIAGNOSES: As per medical doctor. The patient will be discharged. Follow up with the psychiatrist, primary care physician at [place]. EXPECTED OUTCOME: Stable if the patient complies with the above. JOB# [id number]
--- NOTE | 2018-04-17 15:19 | General Progress Note ---
Subjective - Review of Systems Events since last encounter: patient doing better to be discharge today Subjective: awake, some confusion Objective - Results Result Diagrams: 03/30/18 00:25 03/30/18 00:25 Recent Labs: Laboratory Last Values WBC 12.9 Th/cmm (4.8-10.8) H 03/30/18 00:25 RBC 5.21 Mil/cmm (4.30-5.70) 03/30/18 00:25 Hgb 15.2 gm/dL (12-16) 03/30/18 00:25 Hct 45.8 % (41.0-60) 03/30/18 00:25 MCV 87.9 fl (80-99) 03/30/18 00:25 MCH 29.2 pg (26.0-30.0) 03/30/18 00:25 MCHC Differential 33.2 pg (28.0-36.0) 03/30/18 00:25 RDW 14.9 % (11.5-20.0) 03/30/18 00:25 Plt Count 271 Th/cmm (150-400) 03/30/18 00:25 MPV 7.9 fl 03/30/18 00:25 Neutrophils % 57.0 % (40.0-80.0) 03/30/18 00:25 Lymphocytes % 31.5 % (20.0-50.0) 03/30/18 00:25 Monocytes % 4.8 % (2.0-10.0) 03/30/18 00:25 Eosinophils % 2.1 % (0.0-5.0) 03/30/18 00:25 Basophils % 4.6 % (0.0-2.0) H 03/30/18 00:25 Sodium 133 mEq/L (136-145) L 03/30/18 00:25 Potassium 3.6 mEq/L (3.5-5.1) 03/30/18 00:25 Chloride 101 mEq/L (98-107) 03/30/18 00:25 Carbon Dioxide 23.9 mEq/L (21.0-31.0) 03/30/18 00:25 Anion Gap 11.7 (7.0-16.0) 03/30/18 00:25 BUN 12 mg/dL (7-25) 03/30/18 00:25 Creatinine 1.1 mg/dL (0.7-1.3) 03/30/18 00:25 Est GFR ( Amer) > 60.0 ml/min (>90) 03/30/18 00:25 Est GFR (Non-Af Amer) > 60.0 ml/min 03/30/18 00:25 BUN/Creatinine Ratio 10.9 03/30/18 00:25 Glucose 96 mg/dL (70-105) 03/30/18 00:25 Hemoglobin A1c % 5.7 % (4.0-6.0) 03/30/18 00:25 Calcium 10.0 mg/dL (8.6-10.3) 03/30/18 00:25 Total Bilirubin 0.4 mg/dL (0.3-1.0) 03/30/18 00:25 AST 34 U/L (13-39) 03/30/18 00:25 ALT 17 U/L (7-52) 03/30/18 00:25 Alkaline Phosphatase 77 U/L (34-104) 03/30/18 00:25 Total Protein 7.6 gm/dL (6.0-8.3) 03/30/18 00:25 Albumin 4.4 gm/dL (4.2-5.5) 03/30/18 00:25 Globulin 3.2 gm/dL 03/30/18 00:25 Albumin/Globulin Ratio 1.4 (1.0-1.8) 03/30/18 00:25 Triglycerides 88 mg/dL (<150) 03/30/18 00:25 Cholesterol 147 mg/dL (<200) 03/30/18 00:25 LDL Cholesterol Direct 87 mg/dL (75-193) 03/30/18 00:25 HDL Cholesterol 48 mg/dL (23-92) 03/30/18 00:25 TSH 2.52 uIU/ml (0.34-5.60) 03/30/18 00:25 Urine Source CLEAN C 03/31/18 00:10 Urine Color YELLOW 03/31/18 00:10 Urine Clarity CLEAR (CLEAR) 03/31/18 00:10 Urine pH 5.5 (4.6 - 8.0) 03/31/18 00:10 Ur Specific [place] <= 1.005 (1.005-1.030) 03/31/18 00:10 Urine Protein NEGATIVE mg/dL (NEGATIVE) 03/31/18 00:10 Urine Glucose (UA) NEGATIVE mg/dL (NEGATIVE) 03/31/18 00:10 Urine Ketones NEGATIVE mg/dL (NEGATIVE) 03/31/18 00:10 Urine Blood NEGATIVE (NEGATIVE) 03/31/18 00:10 Urine Nitrate NEGATIVE (NEGATIVE) 03/31/18 00:10 Urine Bilirubin NEGATIVE (NEGATIVE) 03/31/18 00:10 Urine Urobilinogen 0.2 E.U./dL (0.2 - 1.0) 03/31/18 00:10 Ur Leukocyte Esterase NEGATIVE (NEGATIVE) 03/31/18 00:10 RPR NONREACTIVE (NONREACTIVE) 03/30/18 00:25 - Physical Exam Vitals and I&O: Vital Signs Temp 97.0 F 04/17/18 14:00 Pulse 97 04/17/18 14:00 Resp 20 04/17/18 14:00 BP 116/69 04/17/18 14:00 Pulse Ox 98 04/17/18 14:00 Intake & Output 04/16/18 04/17/18 04/17/18 18:59 06:59 18:59 Intake Total 480 Balance 480 Intake: Oral 480 Other: # Voids 2 Active Medications: Current Medications Acetaminophen (Tylenol) 650 mg PO Q4HR PRN PRN Reason: Mild Pain / Temp above 100 Stop: 05/30/18 04:20 Last Admin: 04/17/18 09:10 Dose: 650 mg Divalproex Sodium (Depakote Dr) 250 mg PO Q8HR PENDING SALE TO [facility]; Protocol Stop: 06/04/18 12:59 Last Admin: 04/17/18 12:17 Dose: 250 mg Docusate Sodium (Colace) 100 mg PO BID TIMBO Stop: 05/30/18 08:59 Last Admin: 04/17/18 09:12 Dose: 100 mg Haloperidol (Haldol) 4 mg PO BID PENDING SALE TO [facility]; Protocol Stop: 06/09/18 16:59 Last Admin: 04/17/18 09:11 Dose: 4 mg Lorazepam (Ativan) 0.5 mg PO Q4HR PRN; Protocol PRN Reason: Anxiety Stop: 04/30/18 02:39 Last Admin: 04/17/18 11:44 Dose: 0.5 mg Magnesium Hydroxide (Milk Of Magnesia) 30 ml PO HS PRN PRN Reason: Constipation Stop: 05/30/18 04:20 Metoprolol Tartrate (Lopressor) 12.5 mg PO BID TIMBO Stop: 05/30/18 08:59 Last Admin: 04/17/18 09:12 Dose: 12.5 mg Quetiapine Fumarate (Seroquel) 400 mg PO HS TIMBO; Protocol Stop: 06/01/18 20:59 Last Admin: 04/16/18 20:42 Dose: 400 mg Quetiapine Fumarate 100 mg/ (Quetiapine Fumarate 25 mg) 125 mg PO BID TIMBO Stop: 06/14/18 08:59 Last Admin: 04/17/18 09:11 Dose: 125 mg Zolpidem Tartrate (Ambien) 5 mg PO HS PRN PRN Reason: Insomnia Stop: 05/30/18 02:39 Last Admin: 04/15/18 21:22 Dose: 5 mg General: No acute distress HEENT: Atraumatic Neck: Supple, JVD Cardiovascular: Regular rate, Normal S1, Normal S2 Lungs: Clear to auscultation Assessment/Plan - Problem List Patient Problems: All Active Problems HTN (hypertension) (Acute) I10 Schizophrenia (Acute) F20.9 - Plan Plan: as per psych will monitor Nutritional Asmnt/Malnutr-PDOC - Dietary Evaluation Malnutrition Findings (Please click <Entered> for more info): Nutritional Asmnt/Malnutrition Start: 04/04/18 14: 15 Text: Status: Complete Freq: Protocol: Document 04/04/18 14:15 [email or web address] (Rec: 04/04/18 14:28 ALLISON [email or web address]) Nutritional Asmnt/Malnutrition Patient General Information Nutritional Screening Moderate Risk Diagnosis psychosis NOS Pertinent Medical Hx/Surgical Hx HTn, acute renal failure, schizophrenia Subjective Information Pt seen eating in bed at time of visit, consumed 100% of lunch. Per EMR, PO intake 100% of meals. Current Diet Order/ Nutrition Support renal AIXA 80gm Pertinent Medications colace, seroquel Pertinent Labs 03/30 Na 133, glucose 96, A1c 5 .7 Nutritional Hx/Data Height 1.65 m Height (Calculated Centimeters) 165.1 Current Weight (lbs) 65.771 kg Weight (Calculated Kilograms) 65.8 Weight (Calculated Grams) 58155.9 [place] Body Weight 136 Body Mass Index (BMI) 24.1 Weight Status Approriate GI Symptoms GI Symptoms None Last BM 04/02 Difficult in: None Skin Integrity/Comment: intact Current %PO Good (75-100%) Estimated Nutritional Goals BEE in Kcals: Using Current wt Calories/Kcals/Kg 25-30 Kcals Calculated 8920-6190 Protein: Using Current wt Protein g/k Protein Calculated 66 Fluid: ml 1650-1980ml (1ml/kcal) Nutritional Problem No current Nutrition Prob Problem N/A Malnutrition Alert Is there a minimum of two criteria No selected? Query Text:Check all the applicable criteria. A minimum of two criteria are recommended for diagnosis of either severe or non-severe malnutrition. Malnutrition Related to Morbid Obesity Malnutrition related to morbid obesity No Intervention/Recommendation Comments 1. Recommend removing renal diet as renal labs WNL and no hx of CKD. RN notified. 2. Monitor PO intake, wt, labs and skin integrity 3. F/U as low risk in 7 days, 04/11 Expected Outcomes/Goals Expected Outcomes/Goals 1. PO intake to meet at least 75% of nutritional needs. 2. Wt stability, skin to remain intact, labs to approach WNL.
== END 2018-04-17 17:00 | DRG 885 ==
LOC: ER 23:40 → GERO2 03-31 01:45
PROVIDERS: ADMIT Psychiatry & Neurology Psychiatry; ATTEND Psychiatry & Neurology Psychiatry
DX: F25.0 Schizoaffective disorder, bipolar type (principal); I10 Essential (primary) hypertension; F29 Unspecified psychosis not due to a substance or known physiological condition; F17.210 Nicotine dependence, cigarettes, uncomplicated; Z91.012 Allergy to eggs
CPT/HCPCS: 36415-UA; 73130-TC-RT; 80053-TC; 80061-TC; 81003-TC; 83036-90; 84443-TC; 85025-TC; 86592-TC; 93005; G0410; J1200; J1630; J2060; Z7610